=== PATIENT | male | born 1950 | race African-American/Black ===

== ENCOUNTER 2017-06-11 02:28 | Emergency (ER) | payer SELFPAY ==
[2017-06-11 02:47] LABS: BASOPHILS 0.3 % (0-2); EOSINOPHILS 2.4 % (0-7); HEMATOCRIT 43.7 % (42.0-54.0); HEMOGLOBIN 14.8 g/dL (13.5-17.5); IMMATURE GRANULOCYTES 0.4 % (0-5); LYMPHOCYTES 36.2 % (15-50); MCH 32.5 pg (26.0-34.0); MCHC 33.9 g/dL (31.0-37.0); MEAN PLATELET VOLUME 10.9 fL (7.4-10.4); MONOCYTES 7.3 % (2-11); NEUTROPHILS 53.4 % (40-80); PLATELET COUNT 196 10x3/uL (130-400); RBC 4.55 10x6/uL (4.20-6.10); RDW 12.8 % (11.5-14.5); WBC 11.5 10x3/uL (4.8-10.8)
[2017-06-11 02:59] LABS: APTT 28.8 SECONDS (22.8-39.4); INR 1.06 (0.85-1.17); PROTIME 13.4 SECONDS (11.6-15.0)
[2017-06-11 03:00] LABS: D-DIMER-QUANTITATIVE 0.33 ug/mLFEU (0.20-0.54)
[2017-06-11 03:02] LABS: ALBUMIN 3.3 g/dL (3.4-5.0); ALKALINE PHOSPHATASE 108 U/L (46-116); ALT (SGPT) 20 U/L (10-68); BILIRUBIN - TOTAL 0.29 mg/dL (0.2-1.3); CALC OSMOLALITY 279 mosm/kg (275-300); CALCIUM 8.9 mg/dL (8.5-10.1); CARBON DIOXIDE 27.9 mmol/L (21.0-32.0); CHLORIDE - SERUM 102 mmol/L (98-107); CREATININE - SERUM 1.5 mg/dL (0.6-1.3); GLUCOSE 142 mg/dL (74-106); POTASSIUM - SERUM 4.4 mmol/L (3.5-5.1); SODIUM 138 mmol/L (136-145); UREA NITROGEN 19 mg/dL (7-18); eGFR NON AFRICAN AMERICAN 50 mL/min (90-120)
[2017-06-11 03:13] LABS: CHOLESTEROL, TOTAL 110 mg/dL (0-200); CKMB 3.4 U/L (0.0-3.6); CREATINE KINASE 311 UL (21-232); HDL CHOLESTEROL 37 mg/dL (32-96); LDL CHOLESTEROL 35 mg/dL (0-100); LDL-HDL RATIO 0.9 ratio (1.5-3.5); TRIGLYCERIDE 191 mg/dL (30-200); TROPONIN-I < 0.017 ng/mL (0.000-0.060)
== END 2017-06-11 07:02 | disposition home or self-care (01) ==
LOC: EDBD 02:28 → D.ER 02:28
PROVIDERS: Family Medicine
DX: R07.9 Chest pain, unspecified (principal); I25.10 Atherosclerotic heart disease of native coronary artery without angina pectoris; K21.9 Gastro-esophageal reflux disease without esophagitis; I10 Essential (primary) hypertension; E11.9 Type 2 diabetes mellitus without complications; Z79.4 Long term (current) use of insulin; I44.0 Atrioventricular block, first degree; I45.10 Unspecified right bundle-branch block; F17.200 Nicotine dependence, unspecified, uncomplicated

== ENCOUNTER 2017-08-25 05:50 | Day surgery (SDC) | payer MEDICAID ==
[~2017-08-25] VITALS: Ht 172.7 cm; Wt 120.7 kg
--- NOTE | ~2017-08-25 | OP ---
PATIENT NAME: MIGUEL CLEMONS MEDICAL RECORD: [id number] :54 [facility] AD[facility] DATE: SURGEON: SHELDON AYALA MD DATE OF OPERATION: 08/25/2017 SURGEON: Sheldon Ayala MD ANESTHESIA: MAC by Dr. Lisandro Marlow. PREOPERATIVE DIAGNOSIS: Elevated PSA of 26.8. PROCEDURE: Transrectal ultrasound and prostate biopsy. FINDINGS: A 70-gram prostate with internal hypoechoic areas and prostatic stones. SPECIMENS: Prostate biopsy cores. ESTIMATED BLOOD LOSS: None. 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 He came back to [place], [place] to retire. He was found to have an elevated PSA of 26.8. He has no family history of prostate cancer. He comes today to have a prostate biopsy. He is not allergic to any medications. 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 DESCRIPTION OF PROCEDURE: The patient was given IV sedation. He was then placed into dorsal lithotomy position. The ultrasound probe was placed into the rectum and prostate size measurements were obtained. The prostate is enlarged and we estimated the size of 70 grams. Internal hypoechoic areas and prostatic stones were noted. Sextant biopsies were obtained with at least 3 cores from each sextant. Once all these specimens were obtained, the procedure was finished. The patient was awakened and brought back to the preoperative holding area. I will see him next week in followup to review the pathology with him. TRANSINT:[id number] Voice Confirmation ID: [id number] DOCUMENT ID: [id number] SHELDON AYALA MD at 0903 CC: [id number] DICTATION DATE: 08/25/17 0946 OUTCOMES SPECIALIST: 08/25/17 1235 [facility] 08/25/[address] [address]
[~2017-08-25 05:50] MED LIST: GLUCOPHAGE500 MG PO; LISINOPRIL5 MG PO; NORVASC10 MG PO; PRAVACHOL40 MG PO; TENORMIN50 MG PO
[2017-08-25 06:20] LABS: HEMATOCRIT 42.4 % (42.0-54.0); HEMOGLOBIN 14.5 g/dL (13.5-17.5); MCH 32.4 pg (26.0-34.0); MCHC 34.2 g/dL (31.0-37.0); MCV 94.6 fL (80.0-100.0); MEAN PLATELET VOLUME 10.6 fL (7.4-10.4); RBC 4.48 10x6/uL (4.20-6.10); RDW 13.1 % (11.5-14.5); WBC 12.3 10x3/uL (4.8-10.8)
[2017-08-25 06:59] LABS: ANION GAP 16.3 mmol/L (8-16); CALCIUM 9.4 mg/dL (8.5-10.1); CARBON DIOXIDE 22.1 mmol/L (21.0-32.0); CREATININE - SERUM 1.3 mg/dL (0.6-1.3); POTASSIUM - SERUM 4.4 mmol/L (3.5-5.1)
[2017-08-25 08:14] VITALS: BP 160/94; Ht 172.7 cm; Wt 120.7 kg
== END 2017-08-25 11:05 | disposition home or self-care (01) ==
LOC: D.OPS 05:50 → D.PAN 08:30 → EDBD 08:30 → D.OPS 11:05
PROVIDERS: Anesthesiology
DX: C61 Malignant neoplasm of prostate (principal); Z01.812 Encounter for preprocedural laboratory examination

== ENCOUNTER → 2017-09-09 09:37 | Outpatient (CLI) | payer MEDICAID ==
[2017-08-25 08:14] VITALS: BMI 40.5
[~2017-09-09 09:37] MED LIST changes: +ZOFRAN8 MG PO
== END | disposition home or self-care (01) ==
LOC: D.NM 09:37
DX: C61 Malignant neoplasm of prostate (principal)

== ENCOUNTER 2017-09-27 17:46 | Emergency (ER) | payer MEDICAID ==
[~2017-09-27] VITALS: Ht 172.7 cm; Wt 118.2 kg
[~2017-09-27 17:46] MED LIST changes: -ZOFRAN8 MG PO
[2017-09-27 18:14] VITALS: Ht 172.7 cm; Wt 118.2 kg
[2017-09-27 19:28] LABS: BASOPHILS 0.2 % (0-2); EOSINOPHILS 1.9 % (0-7); HEMATOCRIT 43.7 % (42.0-54.0); HEMOGLOBIN 15.3 g/dL (13.5-17.5); IMMATURE GRANULOCYTES 0.2 % (0-5); LYMPHOCYTES 33.3 % (15-50); MCH 32.5 pg (26.0-34.0); MCV 92.8 fL (80.0-100.0); MEAN PLATELET VOLUME 10.3 fL (7.4-10.4); MONOCYTES 9.6 % (2-11); NEUTROPHILS 54.8 % (40-80); PLATELET COUNT 215 10x3/uL (130-400); RBC 4.71 10x6/uL (4.20-6.10); RDW 12.3 % (11.5-14.5); WBC 9.6 10x3/uL (4.8-10.8)
[2017-09-27 20:04] LABS: ALBUMIN 3.5 g/dL (3.4-5.0); ALKALINE PHOSPHATASE 127 U/L (46-116); ALT (SGPT) 18 U/L (10-68); BILIRUBIN - TOTAL 0.31 mg/dL (0.2-1.3); CALC OSMOLALITY 275 mosm/kg (275-300); CALCIUM 9.3 mg/dL (8.5-10.1); CARBON DIOXIDE 26.4 mmol/L (21.0-32.0); CHLORIDE - SERUM 100 mmol/L (98-107); CREATININE - SERUM 1.4 mg/dL (0.6-1.3); GLUCOSE 186 mg/dL (74-106); POTASSIUM - SERUM 3.9 mmol/L (3.5-5.1); PROTEIN - SERUM 8.8 g/dL (6.4-8.2); SODIUM 135 mmol/L (136-145); UREA NITROGEN 14 mg/dL (7-18); eGFR NON AFRICAN AMERICAN 54 mL/min (90-120)
[2017-09-27 20:17] LABS: CKMB 3.7 U/L (0.0-3.6)
[2017-09-27 20:20] LABS: APPEARANCE CLEAR (CLEAR); BILIRUBIN NEGATIVE (NEGATIVE); COLOR YELLOW (YELLOW); GLUCOSE NEGATIVE (NEGATIVE); KETONE NEGATIVE (NEGATIVE); NITRITE NEGATIVE (NEGATIVE); PROTEIN TRACE mg/dL (NEGATIVE); SPECIFIC GRAVITY 1.015 (1.005-1.020); UROBILINOGEN NORMAL (NORMAL)
[2017-09-27 20:26] LABS: TROPONIN-I < 0.017 ng/mL (0.000-0.060)
[2017-09-27] MEDS ORDERED: ZOFRAN8 MG PO (22:54)
[2017-09-27 23:22] VITALS: BP 159/91
== END 2017-09-27 23:09 | disposition home or self-care (01) ==
LOC: D.ER 17:46
PROVIDERS: Family Medicine
DX: R10.9 Unspecified abdominal pain (principal); E11.9 Type 2 diabetes mellitus without complications; Z86.79 Personal history of other diseases of the circulatory system; I10 Essential (primary) hypertension; F17.200 Nicotine dependence, unspecified, uncomplicated

== ENCOUNTER → 2017-11-10 07:10 | Outpatient (CLI) | payer MEDICAID ==
[2017-09-27 18:14] VITALS: Wt 119.7 kg
[2017-11-09 10:09] LABS: APTT 28.2 SECONDS (22.8-39.4); INR 1.03 (0.85-1.17); PROTIME 13.1 SECONDS (11.6-15.0)
[2017-11-09 10:15] LABS: ANION GAP 11.2 mmol/L (8-16); CALCIUM 8.9 mg/dL (8.5-10.1); CARBON DIOXIDE 25.2 mmol/L (21.0-32.0); CREATININE - SERUM 1.7 mg/dL (0.6-1.3); POTASSIUM - SERUM 4.4 mmol/L (3.5-5.1)
[2017-11-09 10:37] LABS: BASOPHILS 0.4 % (0-2); EOSINOPHILS 2.6 % (0-7); HEMOGLOBIN 14.5 g/dL (13.5-17.5); IMMATURE GRANULOCYTES 0.5 % (0-5); LYMPHOCYTES 30.2 % (15-50); MCH 31.2 pg (26.0-34.0); MCHC 33.7 g/dL (31.0-37.0); MCV 92.5 fL (80.0-100.0); MEAN PLATELET VOLUME 11.4 fL (7.4-10.4); MONOCYTES 9.6 % (2-11); NEUTROPHILS 56.7 % (40-80); PLATELET COUNT 229 10x3/uL (130-400); RBC 4.65 10x6/uL (4.20-6.10); RDW 12.9 % (11.5-14.5); WBC 10.9 10x3/uL (4.8-10.8)
[~2017-11-10 07:10] MED LIST changes: +ZOFRAN8 MG PO
== END | disposition home or self-care (01) ==
LOC: D.OPS 07:10 → EDSTATUS 08:00 → D.OPS 11-22 16:44
PROVIDERS: Anesthesiology
DX: C61 Malignant neoplasm of prostate (principal); Z01.810 Encounter for preprocedural cardiovascular examination; Z01.811 Encounter for preprocedural respiratory examination; Z01.812 Encounter for preprocedural laboratory examination; Z53.9 Procedure and treatment not carried out, unspecified reason

== ENCOUNTER 2018-01-21 08:20 | Outpatient (CLI) | payer MEDICARE ==
[2018-01-20 12:01] LABS: BASOPHILS 0.3 % (0-2); EOSINOPHILS 2.4 % (0-7); HEMATOCRIT 42.9 % (42.0-54.0); HEMOGLOBIN 14.6 g/dL (13.5-17.5); IMMATURE GRANULOCYTES 0.2 % (0-5); LYMPHOCYTES 40.6 % (15-50); MCV 94.1 fL (80.0-100.0); MONOCYTES 8.8 % (2-11); NEUTROPHILS 47.7 % (40-80); PLATELET COUNT 211 10x3/uL (130-400); RBC 4.56 10x6/uL (4.20-6.10); RDW 13.2 % (11.5-14.5); WBC 9.7 10x3/uL (4.8-10.8)
[2018-01-20 12:13] LABS: INR 0.95 (0.85-1.17); PROTIME 12.3 SECONDS (11.6-15.0)
[2018-01-20 12:14] LABS: APTT 26.2 SECONDS (22.8-39.4)
[2018-01-20 12:17] LABS: ANION GAP 14.9 mmol/L (8-16); CALCIUM 9.1 mg/dL (8.5-10.1); CARBON DIOXIDE 24.2 mmol/L (21.0-32.0); CREATININE - SERUM 1.3 mg/dL (0.6-1.3); POTASSIUM - SERUM 4.1 mmol/L (3.5-5.1)
[~2018-01-21] VITALS: Ht 172.7 cm; Wt 109.1 kg
--- NOTE | ~2018-01-21 | HEMODYNAMI ---
PATIENT:MIGUEL CLEMONS MEDICAL RECORD: [id number] : 54 LOCATION:[facility] ADMISSION DATE: 01/21/18 Generatedon:01/21/201810:23 Patient name: MIGUEL CLEMONS Patient #: [id number] SSN: : Date of study: 01/21/2018 Page: Of Hemodynamic Procedure Report Patient Data Patient Demographics Procedure consent was obtained First Name: MIGUEL Gender: Male Last Name: KACI : 1950 Middle Initial: RAY Age: 67 year(s) Patient #: [id number] Race: Black Additional ID: [id number] Contact details Address: [address] [place] [address] State: [place] City: [facility] Zip code: [address] Past Medical History Allergies: No known allergies Admission Admission Data Admission Date: 01/21/2018 Admission Time: 8:20 Arrival Date: 01/21/2018 Arrival Time: 0:00 Admit Source: Other Insurance Payor: Medicare Room #: D.CL07 Lab Results Lab Result Date: 01/21/2018 Lab Result Time: 0:00 Biochemistry Name Units Result Min Max BUN mg/dl 12 --(-*--)-- 7 18 Creatinine mg/dl 1.3 --(---*)-- 0.6 1.3 CBC Name Units Result Min Max Hemoglobin g/dl 14.6 --(-*--)-- 13.5 17.5 Procedure Procedure Types Cath Procedure Diagnostic Procedure C [facility] w/Coronaries Sedation Charges Moderate Sedation up to 15 minutes PCI Procedure Coronary Stent Coronary Stent Initial Procedure Description Procedure Date Procedure Date: 01/21/2018 Procedure Start Time: 9:59 Procedure End Time: 10:22 Procedure Staff Name Function Mikal Florentino MD Performing Physician Candi Alcaraz RT Scrub Janelle Castrejon RN Nurse Es Woods RT Monitor Procedure Data Cath Procedure Fluoroscopy Diagnostic fluoroscopy Total fluoroscopy Time: 6.9 time: 6.9 min min Diagnostic fluoroscopy Total fluoroscopy dose: dose: 1556 mGy 1556 mGy Contrast Material Contrast Material Type Amount (ml) Isovue 300 119 Entry Location Entry Primary Successful Side Size Upsize Upsize Entry Closure Colmenares ccessful Closure Location (Fr) 1 (Fr) 2 (Fr) Remarks Device Remarks Radial Right 6 Fr Mechanical artery Short Compression Estimated blood loss: 10 ml Diagnostic catheters Device Type Used For End Catheter Placement DIAGNOSTIC Gary 110cm 5 LV Angiography Fr catheter ([id number]) DIAGNOSTIC Gary 110cm 5 Right Coronary Fr catheter ([id number]) Angiography DIAGNOSTIC Gary 110cm 5 Left Coronary Fr catheter ([id number]) Angiography Procedure Complications No complications Procedure Medications Medication Administration Route Dosage Oxygen etCO2 Nasal cannula 2 l/min Lidocaine 2% added to field 20 Heparin Flush Bag added to field 2 bags (1000units/500ml NS) 0.9% NaCl I.V. 100 ml/hr Versed I.V. 2 mg Fentanyl I.V. 100 mcg Radial Cocktail I.A. 1 syringe (Verapomil 2mg/Nitro 400mcg/Heparin 1500units) Versed I.V. 0.5 mg Fentanyl I.V. 25 mcg Heparin Bolus I.V. 4000 units Integrilin (Bolus I.V. 9.5 ml 2mg/ml) Plavix P.O. 600 mg Hemodynamics Rest HGB: 14.6 (g/dl) Heart Rate: 74 (bpm) Snapshots Pre Cath Intra NCS Post Cath Vital Signs Time Heart Resp SPO2 etCO2 NIBP (mmHg) Rhythm Pain Sedation Rate (ipm) (%) (mmHg) Status Level (bpm) 9:39:29 68 18 100 33.3 146/106(124) NSR 0 (11) 10(A) , No pain 9:43:41 68 24 99 32.5 140/97(112) NSR 0 (11) 10(A) , No pain 9:47:55 73 25 98 34.8 135/83(105) NSR 0 (11) 10(A) , No pain 9:52:06 72 23 99 27.2 134/80(108) NSR 0 (11) 10(A) , No pain 9:56:57 69 18 96 20.4 136/81(104) NSR 0 (11) 10(A) , No pain 10:01:11 69 20 99 24.9 133/79(106) NSR 0 (11) 9(A) , No pain 10:05:28 71 20 95 0 124/70(102) NSR 0 (11) 9(A) , No pain 10:09:37 67 20 97 0 121/76(99) NSR 0 (11) 9(A) , No pain 10:13:45 69 21 97 35.5 125/78(100) NSR 0 (11) 9(A) , No pain 10:17:53 70 21 97 30.2 130/83(99) NSR 0 (11) 10(A) , No pain 10:22:03 72 17 99 28.7 148/88(98) NSR 0 (11) 10(A) , No pain Medications Time Medication Route Dose Verified Delivered Reason Not es Effectiveness by by 9:47:23 Oxygen etCO2 2 l/min Mikal Luis used for Nasal Mishel Castrejon RN procedure cannula 9:47:29 Lidocaine 2% added 20ml Mikal Ren for local to vial Mishel Florentino MD anesthetic field 9:47:35 Heparin Flush added 2 bags Mikal Ren used for Bag to Mishel Florentino MD procedure (1000units/500ml field NS) 9:47:47 0.9% NaCl I.V. 100 Mikal Luis Per physician ml/hr Mishel Castrejon RN 9:54:44 Versed I.V. 2 mg Mikal Luis for sedation Mishel Castrejon RN 9:54:50 Fentanyl I.V. 100 mcg Mikal Luis for sedation Mishel Castrejon RN 10:03:01 Radial Cocktail I.A. 1 Mikal Ren for (Verapomil syringe Mishel Florentino MD vasodilation 2mg/Nitro 400mcg/Heparin 1500units) 10:03:06 Versed I.V. 0.5 mg Mikal Ren for sedation Mishel Florentino MD 10:03:11 Fentanyl I.V. 25 mcg Mkial Ren for sedation Mishel Florentino MD 10:08:02 Heparin Bolus I.V. 4000 Mikal Luis for olaf ified units Mishel Castrejon RN anticoagulation with dr florentino 10:09:14 Integrilin I.V. 9.5 ml Mikal Luis for Was shadi (Bolus 2mg/ml) Mishel Castrejon RN antiplatelet 0.5ml of therapy vial 10:20:38 Plavix P.O. 600 mg Mikal Luis for Mishel Castrejon RN antiplatelet therapy Procedure Log Time Note 9:22:19 Candi Kieran RT(R) sent for patient. Start room use. 9:22:20 Time tracking: Regular hours (M-F 7:00 - 5:00) 9:22:25 Plan of Care:Hemodynamics will remain stable., Cardiac rhythm will remain stable., Comfort level will be maintained., Respiratory function will remain adequate., Patient/ family verbilizes understanding of procedure., Procedure tolerated without complication., Recovers from procedure without complications.. 9:25:30 Admit Source: Other 9:25:52 Arrival Date: 01/21/2018 12:00:00 AM 9:26:04 Insurance Payor : Medicare 9:27:21 Lab Result : BUN 12 mg/dl 9:27:21 Lab Result : Hemoglobin 14.6 g/dl 9:27:21 Lab Result : Creatinine 1.3 mg/dl 9:29:09 Patient received from Pre/Post Procedure Room to CCL 2 Alert and oriented. Tansferred to table in Supine position. 9:29:11 Warm blankets applied, and halie hugger turned on for patient comfort. 9:29:11 Correct patient and procedure confirmed by team. 9:29:13 Signed procedure consent form obtained from patient. 9:29:14 ECG and BP/O2 sat monitors applied to patient. 9:37:31 Vital chart was started 9:39:51 Full Disclosure recording started 9:40:01 Rhythm: 1st degree heart block 9:42:36 H&P Date Dictated: 01/20/2018 Within 30 days and on chart., H&P Addendum completed by physician on day of procedure. (MUST COMPLETE FOR ALL OUTPATIENTS). 9:42:38 Pre-procedure instructions explained to patient. 9:42:38 Pre-op teaching completed and patient verbalized understanding. 9:42:40 Family in patients room. 9:42:42 Patient NPO since Midnight. 9:43:38 Patient allergic to No known allergies 9:43:40 Is the patient allergic to Iodine/contrast media? No. 9:44:22 Is patient on blood thinner?No 9:44:23 Patient diabetic? Yes. 9:44:24 If diabetic: On Metformin? Yes 9:44:27 If on Metformin: Last Dose? 01/20/2018 9:44:30 Previous problem with sedation/anesthesia? No ? 9:44:31 Snore? Yes 9:44:32 Sleep apnea? Yes 9:44:34 Deviated septum? No 9:44:35 Opens mouth fully? Yes 9:44:36 Sticks out tongue? Yes 9:44:37 Airway obstruction? No ? 9:44:39 Dentures? No ? 9:44:42 Pre procedure: right dorsailis pedis pulse 2+ Normal; easily identifiable; not easily obliterated 9:44:44 Modified Duncan's test Ulnar < 7 seconds 9:44:46 Patient pain scale 0/10 ?. 9:44:50 IV patent on arrival in right forearm with 0.9% NaCl at O. 9:44:52 Lab results completed and on chart. 9:44:56 Right Radial & Right Groin area was prepped with chlora-prep and draped in sterile fashion 9:44:57 Alarms reviewed by R. N. 9:44:58 Sharps counted by scrub and verified by R.N. 9:45:00 Use device set Radial Dx or PCI 9:45:01 ACIST Syringe (14450) opened to sterile field. 9:45:02 Medline Cath Pack ([id number]) opened to sterile field. 9:45:02 Bag Decanter (2002S) opened to sterile field. 9:45:02 DIAGNOSTIC WIRE .035 260cm J wire (953835) opened to sterile field. 9:45:03 ACIST Hand Control (72761) opened to sterile field. 9:45:03 ACIST Manifold (63119) opened to sterile field. 9:45:04 Tegaderm 4 x 4 (1626W) opened to sterile field. 9:45:04 MBrace Wrist Support ([id number]) opened to sterile field. 9:45:15 SHEATH 6FR Slender ([id number]) opened to sterile field. 9:47:23 Oxygen 2 l/min etCO2 Nasal cannula was administered by Janelle Castrejon RN; used for procedure; 9:47:29 Lidocaine 2% 20ml vial added to field was administered by Mikal Florentino MD; for local anesthetic; 9:47:35 Heparin Flush Bag (1000units/500ml NS) 2 bags added to field was administered by Mikal Florentino MD; used for procedure; 9:47:47 0.9% NaCl 100 ml/hr I.V. was administered by Janelle Castrejon RN; Per physician; 9:48:11 Zero performed for pressure channel P1 9:48:15 Baseline sample Acquired. 9:52:14 Final Timeout: patient, procedure, and site verified with staff and physician. All members of the team are in agreement. 9:52:18 Right Radial site verified by team. 9:52:22 Physical assessment completed. ASA score P 2 - A patient with mild systemic disease as per Mikal Florentino MD. 9:52:27 Sedation plan: IV Moderate Sedation Medication:Versed, Fentanyl 9:54:44 Versed 2 mg I.V. was administered by Janelle Castrejon RN; for sedation; 9:54:50 Fentanyl 100 mcg I.V. was administered by Janelle Castrejon RN; for sedation; 9:59:34 Procedure started. 9:59:38 Local anesthetic to right radial artery with Lidocaine 2% by Mikal Florentino MD.INITIAL ACCESS ONLY 10:01:26 A 6 Fr Short sheath was inserted into the Right Radial artery 10:01:49 A DIAGNOSTIC Gary 110cm 5 Fr catheter (557287) was advanced over the wire and used for LV Angiography. 10:02:50 LV gram done using TRIPP 10:02:55 Injector settings: Ml/sec: 5, Volume: 15, 10:03:01 Radial Cocktail (Verapomil 2mg/Nitro 400mcg/Heparin 1500units) 1 syringe I.A. was administered by Mikal Florentino MD; for vasodilation; 10:03:05 EF : 30 % 10:03:06 Versed 0.5 mg I.V. was administered by Mikal Florentino MD; for sedation; 10:03:11 Fentanyl 25 mcg I.V. was administered by Mikal Florentino MD; for sedation; 10:03:28 A DIAGNOSTIC Gary 110cm 5 Fr catheter (618417) was advanced over the wire and used for Right Coronary Angiography. 10:03:57 A DIAGNOSTIC Gary 110cm 5 Fr catheter (213381) was advanced over the wire and used for Left Coronary Angiography.REMOVED UNABLE TO CANNULATE 10:04:38 GUIDE 6FR XBLAD 3.5 catheter ([id number]) opened to sterile field. 10:05:10 6 Fr XBLAD 3.5 guide catheter was inserted over the wire 10:05:15 Use device set MISHEL PCI 10:05:29 INFLATOR Merit Cookie (PU6592) opened to sterile field. 10:05:31 CHOICE PT Extra Support J 300cm guide wire ([id number]) opened to sterile field. 10:07:00 GUIDE 6FR XBC 3 (07126369) opened to sterile field. 10:07:47 LCA angiography performed. 10:08:02 Heparin Bolus 4000 units I.V. was administered by Janelle Castrejon RN; for anticoagulation; verified with dr florentino 10:09:14 Integrilin (Bolus 2mg/ml) 9.5 ml I.V. was administered by Janelle Castrejon RN; for antiplatelet therapy; Wasted 0.5ml of vial 10:09:28 CHOICE PT ES wire advanced. 10:12:47 Place stent Inflation Number: 1 A INTEGRITY RX 2.5 x 26 stent ([id number]) was prepped and advanced across the Mid CX. The stent was deployed at 13 BARBRA for 0:12 (min:sec). 10:13:01 Stent catheter was removed intact over wire. 10:14:24 Inflate balloon Inflation number: 2 A INTEGRITY RX 2.5 x 18 stent ([id number]) was prepped and advanced across the Mid CX, then inflated to 13 BARBRA for 0:04 (min:sec). 10:14:59 Stent catheter was removed intact over wire. 10:16:43 Place stent Inflation Number: 3 A INTEGRITY RX 2.5 x 14 stent ([id number]) was prepped and advanced across the Mid CX. The stent was deployed at 17 BARBRA for 0:05 (min:sec). 10:17:01 Stent catheter was removed intact over wire. 10:17:02 Wire removed. 10:17:02 Guide catheter removed. 10:17:09 Sheath removed intact; hemostasis achieved with Mechanical Compression to the Right Radial artery. 10:17:34 Procedure ended.(Physican Out) 10:17:53 Fluoroscopy time 06.90 minutes. 10:17:57 Flurop Dose total: 1556 10:17:57 Fluoroscopy dose: 1556 mGy 10:18:02 Contrast amount:Isovue 300 119ml. 10:18:03 Sharps counted by scrub and verified by R.N. 10:18:07 TR band inflated with 10cc of air. 10:18:08 Insertion/operative site no bleeding no hematoma. 10:18:15 Post right radial artery:stable, clean and dry 10:18:16 Post Procedure Pulses reassessed and unchanged 10:18:19 Post-procedure physical assessment completed. ASA score P 2 - A patient with mild systemic disease as per Mikal Florentino MD. 10:18:21 Post procedure rhythm: unchanged. 10:18:35 Estimated blood loss: 10 ml 10:18:36 Post procedure instruction explained to patient.Patient verbalizes understanding. 10:18:37 Patient needs reinforcement of post procedure teaching. 10:18:45 Procedure type changed to Cath procedure, Diagnostic procedure, LHC, LHC w/Coronaries, Sedation Charges, Moderate Sedation up to 15 minutes, PCI procedure, Coronary Stent, Coronary Stent Initial 10:19:04 Procedure Complication : No complications 10:19:06 See physician's report for complete and final results. 10:19:39 TR BAND Large ([id number]) opened to sterile field. 10:20:20 Procedure and supply charges have been captured, reviewed, submitted and are correct. 10:20:38 Plavix 600 mg P.O. was administered by Janelle Castrejon RN; for antiplatelet therapy; 10:22:19 Vital chart was stopped 10:22:20 Report given to Pre/Post Procedure Room. 10:22:28 Patient transfered to Pre/Post Procedure Room with Stretcher. 10::31 Procedure ended. 10::31 Full Disclosure recording stopped 10::34 End room use (Document Last) 10::34 End room use (Document Last) Intervention Summary Intervention Notes Time ActionType Lesion and Equipment Action# Pressure Duration Attributes Used 10:12:47 Place stent Mid CX INTEGRITY RX 1 13 00:12 2.5 x 26 stent ([id number]) 10:14:24 Inflate Mid CX INTEGRITY RX 2 13 00:05 balloon 2.5 x 18 stent ([id number]) 10:16:43 Place stent Mid CX INTEGRITY RX 3 17 00:05 2.5 x 14 stent ([id number]) Device Usage Item Name Manufacture Quantity Catalog Number Hospital Part Current Mini mal Lot# / Charge Number Stock Stock Serial# Code ACIST Acist 1 58641 181117 590818 610860 20 Syringe Medical (12084) Systems Inc Medline Cath Medline 1 [id number] 492818 41359 284562 5 Pack ([id number]) Bag Decanter Microtek 1 2001S 564623 94739 844892 5 (2001S) Medical Inc. DIAGNOSTIC [facility] [place] 1 094166 659646 956976 754531 30 WIRE .035 260cm J wire (247767) ACIST Hand Acist 1 67696 221678 904910 087377 5 Control Medical (66180) Systems Inc ACIST Acist 1 37396 318639 790934 461844 5 Manifold Medical (22656) Systems Inc Tegaderm 4 x 3M 1 1626W 806118 455596 179566 5 4 (1626W) MBrace Wrist Advanced 1 140-0250-00 161457 57563 113472 5 Support Vascular (972450659) Dynamics SHEATH 6FR Terumo 1 [id number] 556078 886612 256572 40 Slender ([id number]) DIAGNOSTIC Terumo 1 40-3773 908590 428856 067828 5 Gary 110cm 5 Fr catheter (738105) GUIDE 6FR Cardinal 1 [id number] 476552 616028 090677 10 XBLAD 3.5 Health catheter (60517135) INFLATOR [facility] 1 YC2893 940015 840320 860010 15 [facility] BasixCompak (KY6020) CHOICE PT [place] 1 [id number] 325977 997656 076279 5 Extra Scientific Support J 300cm guide wire ([id number]) GUIDE 6FR Cardinal 1 09155703 426799 46746 431496 5 XBC 3 Health (45069040) INTEGRITY RX Medtronic 1 [id number] 333395 764235 808110 5 [id number] 2.5 x 26 stent ([id number]) INTEGRITY RX Medtronic 1 [id number] 210884 360710 376558 5 [id number] 2.5 x 18 stent ([id number]) INTEGRITY RX Medtronic 1 [id number] 638714 781668 877270 5 [id number] 2.5 x 14 stent ([id number]) TR BAND Terumo 1 [id number] 100649 407932 469643 40 Large ([id number]) Signature Audit [place] Stage Time Signature Unsigned Intra-Procedure 01/21/2018 Es 10:22:52 AM Counts RT(R) Signatures Monitor : Es Signature : Counts RT Date : Time : [address] [place] [address]
--- NOTE | ~2018-01-21 | CN ---
PATIENT NAME:MIGUEL MADDEN MEDICAL RECORD: [id number] : 54 LOCATION:[facility]07 ADMIT DATE: 01/21/18 ACCOUNT: [id number] CONSULTING PHYSICIAN: LELIA CARDENAS MD REFERRING PHYSICIAN: LELIA CARDENAS MD DATE OF CONSULTATION: 01/20/2018 CARDIOLOGY CONSULTATION DATE OF SERVICE: 01/20/2018 DIAGNOSES: 1. Preoperative evaluation of prostatectomy. 2. Angina. 3. Dyspnea on exertion - shortness of breath. 4. Coronary artery disease. 5. Previous cardiac stenting. 6. Hypertension. 7. Abnormal ECG. 8. Dysrhythmia - premature ventricular contractions. HISTORY OF PRESENT ILLNESS: Mr. Madden is here to be evaluated for possible prostatectomy. He has history of cardiac stents 15 to 20 years ago. He has been having shortness of breath, dyspnea on exertion and some chest pressure compatible with angina. His EKG is significantly abnormal suggestive of resting ischemia as well having multifocal PVCs. REVIEW OF SYSTEMS: The patient reports easy bruising but reports no swollen glands. The patient reports no fever, no night sweats, no significant weight gain, no significant weight loss. No significant exercise tolerance. The patient reports no dry eyes, no irritation, no vision change. Patient reports no difficulty hearing and no ear pain. Patient reports no frequent nose bleeds or nose and sinus problems. Patient reports on arm pain on exertion. No shortness of breath while lying down. No history of heart murmur. Patient reports no cough, no wheezing or coughing up blood. Patient reports no abdominal pain, no vomiting. Normal appetite. No diarrhea and not vomiting blood. No nausea and no constipation. Patient reports no incontinence. No difficulty urinating. No hematuria. No increased frequency. Patient reports no muscle aches. No weakness, no arthralgias, no back pain. No swelling of the extremities. Patient reports no abnormal mole, no jaundice, no rashes. Reports no loss of consciousness. No weakness and no numbness. No seizures, dizziness, or headaches. The patient reports no depression, no sleep disturbance, feeling safe in a relationship and no alcohol abuse. Patient reports on fatigue. Reports no runny nose or sinus pressure. No itching, no hives, and no frequent sneezing. PHYSICAL EXAMINATION: GENERAL APPEARANCE: Well-nourished, well-developed, appears stated age. Level of distress, comfortable. PSYCHIATRIC: Mental status, alert, normal affect. Orientation, oriented to time, place and person. EYES: Lids and conjunctiva, noninjected. No discharge, no pallor. ENT: Lips, teeth, gums, normal dentition. Oropharynx, no cyanosis, no pallor. NECK: Carotid arteries, bilateral normal upstroke, no bruits, no thrills. JUGULAR VEINS: No jugular venous pressure or distention. CONSULT REPORT [id number] BRIM,MIGUEL RAY CERVICAL LYMPH NODES: Nontender, nonenlarged. THYROID: Not enlarged. Nontender. No nodules. LUNGS: Respiratory effort, unlabored. CHEST: Normal curvature. No thoracic deformity. No chest wall tenderness. Percussion, resonant. Auscultation, clear. No wheezes, no rales, no rhonchi. CARDIOVASCULAR: Precordial exam, nondisplaced. No heaves or pericardial thrills. Rate and rhythm, regular. Heart sounds, normal S1, normal S2. No S3, no gallop, no rub. Systolic murmur, not heard. Diastolic murmur, not heard. EXTREMITIES: No cyanosis, no edema. Peripheral pulses, full and equal in all extremities, except as noted. No bruits appreciated. ABDOMEN: Soft, nondistended. Normal aorta. No bruit. Nontender. No masses. Liver, nontender, no hepatomegaly. Spleen, nontender, no splenomegaly. MUSCULOSKELETAL: No joint tenderness. No joint swelling. No erythema. NEUROLOGICAL: Normal gait, normal strength, normal tone. SKIN: Warm and dry. OVERALL IMPRESSION: Angina, shortness of breath, distant history of coronary artery disease, abnormal ECG. We will proceed with coronary angiography. Further care depends upon the findings of the angiography. TRANSINT:[id number] Voice Confirmation ID: [id number] DOCUMENT ID: [id number] LELIA CARDENAS MD at 1059 CC: [id number] DICTATION DATE: 01/20/18 1229 KNIT GOODS MENDER: 01/20/18 1310 ADM IN [address] [address] [place] [address]
[2018-01-21 08:44] VITALS: BP 154/91; BMI 36.5
[2018-01-21 09:17] LABS: BASOPHILS 0.2 % (0-2); EOSINOPHILS 2.4 % (0-7); HEMATOCRIT 42.8 % (42.0-54.0); HEMOGLOBIN 14.6 g/dL (13.5-17.5); IMMATURE GRANULOCYTES 0.3 % (0-5); LYMPHOCYTES 35.2 % (15-50); MCH 32.3 pg (26.0-34.0); MCHC 34.1 g/dL (31.0-37.0); MCV 94.7 fL (80.0-100.0); MEAN PLATELET VOLUME 10.5 fL (7.4-10.4); NEUTROPHILS 52.9 % (40-80); PLATELET COUNT 202 10x3/uL (130-400); RBC 4.52 10x6/uL (4.20-6.10); RDW 13.2 % (11.5-14.5); WBC 9.5 10x3/uL (4.8-10.8)
[2018-01-21 09:34] LABS: ANION GAP 15.7 mmol/L (8-16); CALCIUM 9.4 mg/dL (8.5-10.1); CARBON DIOXIDE 24.6 mmol/L (21.0-32.0); CREATININE - SERUM 1.4 mg/dL (0.6-1.3); POTASSIUM - SERUM 4.3 mmol/L (3.5-5.1)
[2018-01-21] MEDS ORDERED: PLAVIX75 MG PO (10:55)
[2018-01-21] MEDS ORDERED: BAYER CHEWABLE81 MG PO (10:57)
== END 2018-01-21 14:50 | disposition home or self-care (01) ==
LOC: OBSVTIME → D.OPS 08:20 → D.SDCHOLD 08:20 → OBSVTIME 08:20 → D.CLR 08:20 → D.SDCHOLD 08:30 → EDSTATUS 08:45 → D.SDCHOLD 08:45 → D.OPS 14:50 → D.CLR 14:50 → EDBD 14:50 → D.CLR 14:50
PROVIDERS: Anesthesiology; Internal Medicine Interventional Cardiology
DX: I25.119 Atherosclerotic heart disease of native coronary artery with unspecified angina pectoris (principal); I49.3 Ventricular premature depolarization; R94.31 Abnormal electrocardiogram [ECG] [EKG]; I10 Essential (primary) hypertension

== ENCOUNTER → 2018-01-24 15:24 | Outpatient (CLI) | payer MEDICARE ==
[~2018-01-24] VITALS: Ht 172.7 cm; Wt 110.9 kg
--- NOTE | ~2018-01-24 | OP ---
PATIENT NAME: MIGUEL CLEMONS MEDICAL RECORD: [id number] :54 LOCATION:D.CAT ADMISSION DATE: SURGEON: LELIA CARDENAS MD DATE OF OPERATION: 01/24/2018 PROCEDURES: 1. PTCA stent RCA. 2. Selective coronary angiography. INDICATION: Angina and coronary artery disease. PROCEDURE IN DETAIL: After informed consent was obtained and after a detailed description of risks, benefits as well as alternative therapies, the patient elected to proceed with angiogram and angioplasty. The right radial area was prepped and draped in normal sterile fashion. Right radial artery was cannulated via modified Seldinger technique with placement of 6-Turkish sheath. All catheters exchanged through this sheath. FINDINGS: The right coronary artery has tandem 75% to 80% stenoses in the mid vessel. Both were addressed with a 2.75 x 26 mm Integrity. Result was 0% residual stenosis. OVERALL IMPRESSION: Successful percutaneous transluminal coronary angioplasty stent of the RCA going from 75% to 80% initial stenosis to 0% residual. TRANSINT:[id number] Voice Confirmation ID: [id number] DOCUMENT ID: [id number] LELIA CARDENAS MD at 1031 CC: [id number] DICTATION DATE: 01/24/18 1103 DISEASE CONTROL INSPECTOR: 01/24/18 1111 [facility] CLI 01/24/[address] [address]
--- NOTE | ~2018-01-24 | HP ---
PATIENT: MIGUEL MADDEN MEDICAL RECORD: [id number] ACCOUNT: [id number] LOCATION:[facility] : 54 ADMISSION DATE: 01/24/18 PCP: BILLY GREEN MD HISTORY AND PHYSICAL EXAMINATION DIAGNOSES: 1. Angina. 2. Coronary artery disease. 3. Abnormal ECG. 4. Shortness breath, dyspnea on exertion. 5. Preoperative evaluation of radical prostatectomy. 6. PVCs. HISTORY OF PRESENT ILLNESS: Mr. Madden presented last week with shortness of breath, dyspnea on exertion, found to have multivessel coronary artery disease, underwent PTCA stent of the left, and now brought back for PTCA stent of the right. PHYSICAL EXAMINATION: GENERAL APPEARANCE: Well-nourished, well-developed, appears stated age. Level of distress, comfortable. PSYCHIATRIC: Mental status, alert, normal affect. Orientation, oriented to time, place and person. EYES: Lids and conjunctiva, noninjected. No discharge, no pallor. ENT: Lips, teeth, gums, normal dentition. Oropharynx, no cyanosis, no pallor. NECK: Carotid arteries, bilateral normal upstroke, no bruits, no thrills. JUGULAR VEINS: No jugular venous pressure or distention. CERVICAL LYMPH NODES: Nontender, nonenlarged. THYROID: Not enlarged. Nontender. No nodules. LUNGS: Respiratory effort, unlabored. CHEST: Normal curvature. No thoracic deformity. No chest wall tenderness. Percussion, resonant. Auscultation, clear. No wheezes, no rales, no rhonchi. CARDIOVASCULAR: Precordial exam, nondisplaced. No heaves or pericardial thrills. Rate and rhythm, regular. Heart sounds, normal S1, normal S2. No S3, no gallop, no rub. Systolic murmur, not heard. Diastolic murmur, not heard. EXTREMITIES: No cyanosis, no edema. Peripheral pulses, full and equal in all extremities, except as noted. No bruits appreciated. ABDOMEN: Soft, nondistended. Normal aorta. No bruit. Nontender. No masses. Liver, nontender, no hepatomegaly. Spleen, nontender, no splenomegaly. MUSCULOSKELETAL: No joint tenderness. No joint swelling. No erythema. NEUROLOGICAL: Normal gait, normal strength, normal tone. SKIN: Warm and dry. OVERALL IMPRESSION: Anginal symptomatology with significant disease on the right. We will proceed with PTCA stent of the RCA. TRANSINT:[id number] Voice Confirmation ID: [id number] DOCUMENT ID: [id number] HISTORY AND PHYSICAL [id number] MIGUEL MADDEN JEFFREY MD at 1031 CC: [id number] DICTATION DATE: 01/24/18 1527 COPY MANAGER: 01/24/18 1701 DEP CLI 01/24/18 [id number] [place] [address]
--- NOTE | ~2018-01-24 | HEMODYNAMI ---
PATIENT:MIGUEL CLEMONS MEDICAL RECORD: [id number] : 54 LOCATION:[facility] ADMISSION DATE: 01/24/18 Generatedon:01/24/201811:02 Patient name: MIGUEL CLEMONS Patient #: [id number] SSN: : Date of study: 01/24/2018 Page: Of Hemodynamic Procedure Report Patient Data Patient Demographics Procedure consent was obtained First Name: MIGUEL Gender: Male Last Name: KACI : 1950 Middle Initial: RAY Age: 67 year(s) Patient #: [id number] Race: Black Additional ID: [id number] Contact details Address: [address] [place] [address] State: [place] City: [facility] Zip code: [address] Past Medical History Allergies: No known allergies Admission Admission Data Admission Date: 01/24/2018 Admission Time: 10:30 Lab Results Lab Result Date: 01/21/2018 Lab Result Time: 0:00 Biochemistry Name Units Result Min Max BUN mg/dl 12 --(-*--)-- 7 18 Creatinine mg/dl 1.3 --(---*)-- 0.6 1.3 CBC Name Units Result Min Max Hemoglobin g/dl 14.6 --(-*--)-- 13.5 17.5 Procedure Procedure Types Cath Procedure PCI Procedure Coronary Stent Coronary Stent Initial Procedure Description Procedure Date Procedure Date: 01/24/2018 Procedure Start Time: 10:49 Procedure End Time: 11:02 Procedure Staff Name Function Mikal Florentino MD Performing Physician Felix Calvo RT Monitor Carolina Tijerina RN Nurse Es Woods RT Scrub Procedure Data Cath Procedure Fluoroscopy Diagnostic fluoroscopy Total fluoroscopy Time: 2 time: 2 min min Diagnostic fluoroscopy Total fluoroscopy dose: 169 dose: 169 mGy mGy Contrast Material Contrast Material Type Amount (ml) Isovue 300 55 Entry Location Entry Primary Successful Side Size Upsize Upsize Entry Closure Colmenares ccessful Closure Location (Fr) 1 (Fr) 2 (Fr) Remarks Device Remarks Radial Right 6 Fr Mechanical artery Short Compression Estimated blood loss: 10 ml Procedure Complications No complications Procedure Medications Medication Administration Route Dosage 0.9% NaCl I.V. 100 ml/hr Oxygen etCO2 Nasal cannula 2 l/min Lidocaine 2% added to field 20 Heparin Flush Bag added to field 2 bags (1000units/500ml NS) Radial Cocktail added to field 1 syringe (Verapomil 2mg/Nitro 400mcg/Heparin 1500units) Versed I.V. 2 mg Fentanyl I.V. 50 mcg Versed I.V. 2 mg Fentanyl I.V. 25 mcg Heparin Bolus I.V. 4000 units Versed I.V. 1 mg Fentanyl I.V. 25 mcg Hemodynamics Rest HGB: 14.6 (g/dl) Heart Rate: 61 (bpm) Snapshots Pre Cath Intra NCS Post Cath Vital Signs Time Heart Resp SPO2 etCO2 NIBP (mmHg) Rhythm Pain Sedation Rate (ipm) (%) (mmHg) Status Level (bpm) 10:34:34 71 31 99 33.1 141/90(119) NSR 0 (11) 10(A) , No pain 10:38:56 72 21 100 27.1 127/84(106) NSR 0 (11) 10(A) , No pain 10:43:18 65 21 100 33.9 126/88(107) NSR 0 (11) 10(A) , No pain 10:47:40 61 22 98 25.6 122/80(101) NSR 0 (11) 10(A) , No pain 10:52:02 67 22 97 26.3 125/83(103) NSR 0 (11) 10(A) , No pain 10:56:24 64 21 97 26 111/77(97) NSR 0 (11) 10(A) , No pain 11:00:43 60 21 98 27.4 112/73(94) NSR 0 (11) 10(A) , No pain Medications Time Medication Route Dose Verified Delivered Reason Not es Effectiveness by by 10:33:25 0.9% NaCl I.V. 100 Mikal Salazaryla used for ml/hr Mishel Tijerina hand i blocker 10:33:33 Oxygen etCO2 2 l/min Mikal Lopesa used for Nasal Mishel Tijerina procedure cannula RN 10:33:39 Lidocaine 2% added 20ml Mikal Mikal for local to vial Mishel Florentino MD anesthetic field 10:33:43 Heparin Flush added 2 bags Mikal Norrisrey used for Bag to Mishel Florentino MD procedure (1000units/500ml field NS) 10:39:53 Radial Cocktail added 1 Mikalvelma Ren used for (Verapomil to syringe Mishel Florentino MD procedure 2mg/Nitro field 400mcg/Heparin 1500units) 10:43:08 Versed I.V. 2 mg Mikal Carolina for sedation Mishel Tijerina RN 10:43:17 Fentanyl I.V. 50 mcg Mikal Carolina for sedation Mishel Tijerina RN 10:50:54 Versed I.V. 2 mg Mikal Carolina for sedation Mishel Tijerina RN 10:50:59 Fentanyl I.V. 25 mcg Mikal Carolina for sedation Mishel Tjierina RN 10:53:55 Heparin Bolus I.V. 4000 Mikal Carolina for olaf ified units Mishel Tijerina anticoagulation with Dr. GABBY Florentino 10:55:35 Versed I.V. 1 mg Mikal Carolina for sedation Mishel Tijerina RN 10:55:45 Fentanyl I.V. 25 mcg Mikal Carolina for sedation Mishel Tijerina RN Procedure Log Time Note 10:20:30 Felix ROBERTO(R) sent for patient. Start room use. 10:20:31 Time tracking: Regular hours (M-F 7:00 - 5:00) 10:20:34 Plan of Care:Hemodynamics will remain stable., Cardiac rhythm will remain stable., Comfort level will be maintained., Respiratory function will remain adequate., Patient/ family verbilizes understanding of procedure., Procedure tolerated without complication., Recovers from procedure without complications.. 10:27:09 Patient received from Pre/Post Procedure Room to CCL 3 Alert and oriented. Tansferred to table in Supine position. 10:27:10 Warm blankets applied, and halie hugger turned on for patient comfort. 10:27:11 Correct patient and procedure confirmed by team. 10:27:12 Signed procedure consent form obtained from patient. 10:27:13 ECG and BP/O2 sat monitors applied to patient. 10:27:14 Full Disclosure recording started 10:33:11 Vital chart was started 10:33:25 0.9% NaCl 100 ml/hr I.V. was administered by Carolina Tijerina RN; used for procedure; 10:33:33 Oxygen 2 l/min etCO2 Nasal cannula was administered by Carolina Tijerina RN; used for procedure; 10:33:39 Lidocaine 2% 20ml vial added to field was administered by Mikal Florentino MD; for local anesthetic; 10:33:43 Heparin Flush Bag (1000units/500ml NS) 2 bags added to field was administered by Mikal Florentino MD; used for procedure; 10:35:41 Baseline sample Acquired. 10:35:53 Rhythm: sinus rhythm 10:36:27 H&P Date Dictated: 01/24/2018 New H&P dictated by physician.. 10:36:28 Pre-procedure instructions explained to patient. 10:36:28 Pre-op teaching completed and patient verbalized understanding. 10:36:30 Family unavailable. 10:36:32 Patient NPO since Midnight. 10:36:33 Is the patient allergic to Iodine/contrast media? No. 10:36:34 Is patient on blood thinner?Yes 10:36:37 ACC The patient was administered the following blood thiners within the last 24 hours: ACCPlavix 10:36:39 Patient diabetic? Yes. 10:36:40 If diabetic: On Metformin? Yes 10:36:43 If on Metformin: Last Dose? 01/23/2018 10:36:46 Previous problem with sedation/anesthesia? No ? 10:36:50 Snore? Yes 10:36:51 Sleep apnea? Yes 10:36:52 Deviated septum? No 10:36:53 Opens mouth fully? Yes 10:36:54 Sticks out tongue? Yes 10:36:55 Airway obstruction? No ? 10:36:58 Dentures? No ? 10:37:02 Pre procedure: right dorsailis pedis pulse 1+ Palpable, but thready & weak; easily obliterated 10:37:04 Modified Duncan's test Ulnar < 7 seconds 10:37:07 Patient pain scale 0/10 ?. 10:37:12 IV patent on arrival in left forearm with 0.9% NaCl at [facility]. 10:37:14 Lab results completed and on chart. 10:37:17 Right Radial & Right Groin area was prepped with chlora-prep and draped in sterile fashion 10:37:18 Alarms reviewed by R. N. 10:37:19 Sharps counted by scrub and verified by R.N. 10:37:32 Use device set Radial Dx or PCI 10:37:34 Use device set TAUTH PCI 10:37:38 ACIST Syringe (00727) opened to sterile field. 10:37:38 Medline Cath Pack ([id number]) opened to sterile field. 10:37:39 Bag Decanter (2002S) opened to sterile field. 10:37:40 ACIST Hand Control (56086) opened to sterile field. 10:37:40 ACIST Manifold (18726) opened to sterile field. 10:37:40 Tegaderm 4 x 4 (1626W) opened to sterile field. 10:37:42 DIAGNOSTIC WIRE .035 260cm J wire (637847) opened to sterile field. 10:37:47 INFLATOR Merit BasixCompak (DH5471) opened to sterile field. 10:37:50 CHOICE PT Extra Support 182cm wire ([id number]) opened to sterile field. 10:38:01 SHEATH 6Fr Prelude Radial ([id number]) opened to sterile field. 10:39:53 Radial Cocktail (Verapomil 2mg/Nitro 400mcg/Heparin 1500units) 1 syringe added to field was administered by Mikal Florentino MD; used for procedure; 10:42:45 --------ALL STOP TIME OUT------ 10:42:45 Final Timeout: patient, procedure, and site verified with staff and physician. All members of the team are in agreement. 10:42:48 Right Radial & Right Groin site verified by team. 10:42:50 Physical assessment completed. ASA score P 2 - A patient with mild systemic disease as per Mikal Florentino MD. 10:42:52 Sedation plan: IV Moderate Sedation Medication:Versed, Fentanyl 10:43:08 Versed 2 mg I.V. was administered by Carolina Tijerina RN; for sedation; 10:43:17 Fentanyl 50 mcg I.V. was administered by Carolina Tijerina RN; for sedation; 10:45:00 GUIDE 6FR HS II SH catheter ([id number]) opened to sterile field. 10:49:29 Local anesthetic to right radial artery with Lidocaine 2% by Mikal Florentino MD.INITIAL ACCESS ONLY 10:50:54 Versed 2 mg I.V. was administered by Carolina Tijerina RN; for sedation; 10:50:59 Fentanyl 25 mcg I.V. was administered by Carolina Tijerina RN; for sedation; 10:51:28 Zero performed for pressure channel P1 10:52:59 A 6 Fr Short sheath was inserted into the Right Radial artery 10:53:53 6 Fr HS 2 SH guide catheter was inserted over the wire 10:53:55 Heparin Bolus 4000 units I.V. was administered by Carolina Tijerina RN; for anticoagulation; verified with Dr. Florentino 10:54:50 CPTXS wire advanced. 10:55:35 Versed 1 mg I.V. was administered by Carolina Tijerina RN; for sedation; 10:55:44 Wire advanced across lesion. 10:55:45 Fentanyl 25 mcg I.V. was administered by Carolina Tijerina RN; for sedation; 10:57:28 Place stent Inflation Number: 1 A INTEGRITY RX 2.75 x 26 stent ([id number]) was prepped and advanced across the Mid RCA. The stent was deployed at 13 BARBRA for 0:10 (min:sec). 10:57:48 Stent catheter was removed intact over wire. 10:57:49 Wire removed. 10:57:49 Guide catheter removed. 10:58:24 TR BAND Standard ([id number]) opened to sterile field. 10:58:37 Sheath removed intact; hemostasis achieved with Mechanical Compression to the Right Radial artery. 10:59:43 Procedure ended.(Physican Out) 11:00:46 Fluoroscopy time 02.00 minutes. 11:00:50 Flurop Dose total: 169 11:00:50 Fluoroscopy dose: 169 mGy 11:00:55 Contrast amount:Isovue 300 55ml. 11:00:57 Sharps counted by scrub and verified by R.N. 11:01:01 TR band inflated with 12cc of air. 11:01:03 Insertion/operative site no bleeding no hematoma. 11:01:04 Post Procedure Pulses reassessed and unchanged 11:01:06 Post-procedure physical assessment completed. ASA score P 2 - A patient with mild systemic disease as per Mikal Florentino MD. 11:01:08 Post procedure rhythm: unchanged. 11:01:11 Estimated blood loss: 10 ml 11:01:13 Post procedure instruction explained to patient.Patient verbalizes understanding. 11:01:13 Patient needs reinforcement of post procedure teaching. 11:01:20 Procedure and supply charges have been captured, reviewed, submitted and are correct. 11:01:22 Procedure Complication : No complications 11:02:08 Vital chart was stopped 11:02:08 See physician's report for complete and final results. 11:02:10 Report given to Pre/Post Procedure Room. 11:02:13 Patient transfered to Pre/Post Procedure Room with Stretcher. 11:02:15 Procedure ended. 11:02:15 Full Disclosure recording stopped 11:02:20 End room use (Document Last) Intervention Summary Intervention Notes Time ActionType Lesion and Equipment Action# Pressure Duration Attributes Used 10:57:28 Place stent Mid RCA INTEGRITY RX 1 13 00:10 2.75 x 26 stent ([id number]) Device Usage Item Name Manufacture Quantity Catalog Number Hospital Part Current M inimal Lot# / Charge Number Stock Stock Serial# Code ACIST Syringe Acist 1 98859 589771 902037 172147 2 0 (51958) Medical Systems Inc Medline Cath Medline 1 [id number] 185468 15044 373037 5 Pack ([id number]) Bag Decanter Microtek 1 2001S 395794 10652 035966 5 (2002S) Medical Inc. ACIST Hand Acist 1 07222 535414 076450 302160 5 Control (59569) Medical Systems Inc ACIST Manifold Acist 1 64946 582108 251397 708477 5 (94627) Medical Systems Inc Tegaderm 4 x 4 3M 1 1626W 693027 056815 335626 5 (1626W) DIAGNOSTIC WIRE St Brady 1 227102 846393 506297 522012 3 0 .035 260cm J wire (427542) INFLATOR Merit Merit 1 KW7977 734439 123853 036522 1 5 [facility] Medical (DS1691) CHOICE PT Extra Tom [place] 1 [id number] 324862 719422 337174 5 Support 182cm Scientific wire ([id number]) SHEATH 6Fr Merit 1 [id number] 042851 202242 615267 5 Prelude Radial Medical ([id number]) GUIDE 6FR HS II Medtronic 1 [id number] 397122 84699 376496 1 SH catheter ([id number]) INTEGRITY RX Medtronic 1 [id number] 389408 715016 251992 5 [id number] 2.75 x 26 stent ([id number]) TR BAND Terumo 1 [id number] 943215 417458 062504 4 0 Standard ([id number]) Signature Audit [place] Stage Time Signature Unsigned Intra-Procedure 01/24/2018 Felix Calvo 11:02:36 AM RT(R) Signatures Monitor : Felix Calvo RT Signature : Date : Time : [address] [place] [address]
[2018-01-24 08:57] VITALS: BP 136/90; Ht 172.7 cm; Wt 110.9 kg
[2018-01-24 09:05] LABS: BASOPHILS 0.5 % (0-2); EOSINOPHILS 3.5 % (0-7); HEMATOCRIT 42.2 % (42.0-54.0); HEMOGLOBIN 14.3 g/dL (13.5-17.5); IMMATURE GRANULOCYTES 0.4 % (0-5); LYMPHOCYTES 36.3 % (15-50); MCH 32.1 pg (26.0-34.0); MCHC 33.9 g/dL (31.0-37.0); MCV 94.6 fL (80.0-100.0); MEAN PLATELET VOLUME 11.1 fL (7.4-10.4); MONOCYTES 10.1 % (2-11); NEUTROPHILS 49.2 % (40-80); PLATELET COUNT 207 10x3/uL (130-400); RBC 4.46 10x6/uL (4.20-6.10); WBC 9.3 10x3/uL (4.8-10.8)
[2018-01-24 09:19] LABS: ANION GAP 12.7 mmol/L (8-16); CALCIUM 8.8 mg/dL (8.5-10.1); CARBON DIOXIDE 26.8 mmol/L (21.0-32.0); CREATININE - SERUM 1.4 mg/dL (0.6-1.3); POTASSIUM - SERUM 4.5 mmol/L (3.5-5.1)
[~2018-01-24 15:24] MED LIST changes: +BAYER CHEWABLE81 MG PO; +EFFIENT10 MG PO; +FLOMAX0.4 MG PO; +OMEPRAZOLE40 MG PO; +PLAVIX75 MG PO; +VISTARIL25 MG PO
== END | disposition home or self-care (01) ==
LOC: D.CATH 10:30 → EDBD 15:24
PROVIDERS: Internal Medicine Interventional Cardiology
DX: I25.119 Atherosclerotic heart disease of native coronary artery with unspecified angina pectoris (principal); R94.31 Abnormal electrocardiogram [ECG] [EKG]; I49.3 Ventricular premature depolarization; Z01.812 Encounter for preprocedural laboratory examination

== ENCOUNTER 2018-01-27 13:53 | Emergency (ER) | payer MEDICARE ==
[~2018-01-27] VITALS: Ht 172.7 cm; Wt 109.1 kg
[~2018-01-27 13:53] MED LIST changes: -EFFIENT10 MG PO; -FLOMAX0.4 MG PO; -OMEPRAZOLE40 MG PO; -VISTARIL25 MG PO
[2018-01-27 13:56] VITALS: Ht 172.7 cm; Wt 109.1 kg
[2018-01-27 14:36] LABS: BASOPHILS 0.4 % (0-2); EOSINOPHILS 2.2 % (0-7); HEMATOCRIT 43.8 % (42.0-54.0); IMMATURE GRANULOCYTES 0.4 % (0-5); LYMPHOCYTES 38.3 % (15-50); MCH 32.3 pg (26.0-34.0); MCHC 34.2 g/dL (31.0-37.0); MCV 94.4 fL (80.0-100.0); MONOCYTES 8.3 % (2-11); NEUTROPHILS 50.4 % (40-80); PLATELET COUNT 215 10x3/uL (130-400); RBC 4.64 10x6/uL (4.20-6.10); RDW 13.1 % (11.5-14.5); WBC 11.1 10x3/uL (4.8-10.8)
[2018-01-27 14:45] LABS: APTT 26.8 SECONDS (22.8-39.4); INR 1.01 (0.85-1.17)
[2018-01-27 14:51] LABS: ALBUMIN 3.5 g/dL (3.4-5.0); ALKALINE PHOSPHATASE 141 U/L (46-116); ALT (SGPT) 26 U/L (10-68); BILIRUBIN - TOTAL 0.23 mg/dL (0.2-1.3); CALC OSMOLALITY 283 mosm/kg (275-300); CALCIUM 9.4 mg/dL (8.5-10.1); CARBON DIOXIDE 28.5 mmol/L (21.0-32.0); CHLORIDE - SERUM 102 mmol/L (98-107); CREATININE - SERUM 1.5 mg/dL (0.6-1.3); GLUCOSE 222 mg/dL (74-106); PROTEIN - SERUM 8.7 g/dL (6.4-8.2); SODIUM 138 mmol/L (136-145); UREA NITROGEN 14 mg/dL (7-18); eGFR NON AFRICAN AMERICAN 50 mL/min (90-120)
[2018-01-27 15:09] LABS: CKMB 2.4 U/L (0.0-3.6); CREATINE KINASE 226 UL (21-232); MAGNESIUM - SERUM 2.2 mg/dL (1.8-2.4)
[2018-01-27 15:14] LABS: TROPONIN-I 0.141 ng/mL (0.000-0.060)
[2018-01-27] MEDS ORDERED: OMEPRAZOLE40 MG PO (16:38)
[2018-01-27 18:14] VITALS: BP 154/95
== END 2018-01-27 17:17 | disposition home or self-care (01) ==
LOC: D.ER 13:53
PROVIDERS: Family Medicine
DX: R07.9 Chest pain, unspecified (principal); R14.2 Eructation; I25.10 Atherosclerotic heart disease of native coronary artery without angina pectoris; E11.9 Type 2 diabetes mellitus without complications; I10 Essential (primary) hypertension; K21.9 Gastro-esophageal reflux disease without esophagitis; F17.200 Nicotine dependence, unspecified, uncomplicated; I44.0 Atrioventricular block, first degree; I45.10 Unspecified right bundle-branch block

== ENCOUNTER 2018-02-02 01:29 | Inpatient (IN) | payer MEDICARE ==
[2018-02-02] VITALS (22 sets, daily range): BP systolic 115–155; BP diastolic 86–127; Ht 175.3 cm; Wt 113.2 kg
[~2018-02-02] VITALS: Ht 175.3 cm; Wt 113.2 kg
--- NOTE | ~2018-02-02 | OP ---
PATIENT NAME: MIGUEL CLEMONS MEDICAL RECORD: [id number] :54 LOCATION:D.M2 D.2105 ADMISSION DATE:02/02/18 SURGEON: LELIA CARDENAS MD DATE OF OPERATION: 02/02/2018 PROCEDURES: 1. Left heart catheterization. 2. Selective coronary angiography. 3. Left ventriculogram. 4. PTCA and stent, left circumflex. 5. PTCA, RCA. INDICATION: Non-Q-wave myocardial infarction. DESCRIPTION OF PROCEDURE: After informed consent was obtained with detailed description of risks and benefits as well as alternative therapies, the patient elected to proceed with angiogram and angioplasty. The right femoral area was prepped and draped in normal sterile fashion. Right femoral artery was cannulated via modified Seldinger technique with placement of 6-Kyrgyz sheath. All catheters were exchanged through this sheath. FINDINGS: The left ventriculogram performed in standard 30-degree TRIPP view reveals anteroapical akinesis. Ejection fraction in the 20% range. SELECTIVE CORONARY ANGIOGRAPHY: 1. Left main is with no significant angiographic disease. 2. Left anterior descending is chronically totally occluded, unchanged from previous angiography. 3. Left circumflex is totally occluded at the site of the previously placed stents. This is acute. 4. Right coronary is totally occluded at the site of the previously placed stents. This is acute. It appears that the patient has not been taking aspirin or Plavix as he was directed. He even came back for a staged procedure not being on the aspirin and Plavix and assured us that he would be taking them; however, he is not, hence the acute occlusions of both distended areas. PTCA AND STENT OF THE CIRCUMFLEX. We ballooned this with a 2.5 balloon. There was still significant thrombus burden. I stented this with a 2.5 x 26-mm Integrity stent. Result was 0% residual stenosis with catholic of HECTOR-3 flow. PTCA OF THE RCA: Multiple inflations were made with a 3.0 balloon. This opened the RCA up and restored HECTOR-3 flow. IMPRESSION: Successful PTCA and stent of the left circumflex and PTCA of the RCA, both for acute closures at the site of the previously placed stents, both from noncompliance with dual antiplatelet. We will put him on Effient as well as aspirin at this time. TRANSINT:[id number] Voice Confirmation ID: [id number] DOCUMENT ID: [id number] OPERATIVE REPORT [id number] MIGUEL CLEMONS JEFFREY MD at 1704 CC: [id number] DICTATION DATE: 02/02/18 1156 DATA VISUALIZATION DEVELOPER: 02/02/18 1236 DIS IN 02/04/18 [facility] [address] [id number]
--- NOTE | ~2018-02-02 | MORECARE ---
CASE MANAGEMENT DISCHARGE SUMMARY PATIENT: MIGUEL CLEMONS UNIT: [id number] ADM DATE: 02/02/18 AGE: 67 : 54 SEX: M ROOM/BED: D.210 AUTHOR: MELISSA,DOC PHYSICIAN: REFERRING PHYSICIAN: ADALID MOSS MD DATE OF SERVICE: 02/04/18 Discharge Plan Patient Name: MIGUEL CLEMONS Facility: [facility]:[place] : 1950 Planned Disposition: Home Anticipated Discharge Date: 02/04/18 Discharge Date: 02/04/2018 Expected LOS: 2 Initial Reviewer: [email or web address] Initial Review Date: 02/04/2018 Generated: 02/04/18 5:51 pm Comments DCP- Discharge Planning Updated by [email or web address]: Johny Hendrickson on 02/04/18 3:[address] Patient Name: MIGUEL CLEMONS Admission Status: ER Accout number: [id number] Admission Date: 02-02-2018 : 1950 Admission Diagnosis: Attending: ADALID MOSS Current LOS: 2 Anticipated DC Date: 02-04-2018 Planned Disposition: Home Primary Insurance: MEDICARE A & B Discharge Planning Comments: CM MET WITH PT IN ROOM TO DISCUSS DISCHARGE PLANNING AND NEEDS. PT REPORTS LIVING AT HOME INDEPENDENTLY AND ALONE. PT HAS NON WORKING CPAP BUT HAS APPOINTMENT NEXT MONTH TO ADDRESS THIS ISSUE. PT HAS NO MEDICAL EQUIPMENT PROVIDER PREFERENCE AND NO OUTSIDE SERVICES ASSISTING IN THE HOME. CM DISCUSSED AVAILABILITY OF HOME HEALTH, REHAB SERVICES AND MEDICAL EQUIPMENT. PT DENIES DISCHARGE NEEDS, REPORTS HIS SISTER WILL PICK HIM UP FOR DISCHARGE HOME. IMPORTANT MESSAGE FROM MEDICARE PROVIDED AND EXPLAINED. IMPORTANT MESSAGE FROM MEDICARE PROVIDED AND EXPLAINED. Electronics Tech: Johny Hendrickson DCPIA - Discharge Planning Initial Assessment Updated by [email or web address]: Johny Hendrickson on 02/04/18 4:48 pm * Is the patient Alert and Oriented? Yes * How many steps to enter\exit or inside your home? * PCP [facility] * Pharmacy [facility] [address] * Preadmission Environment Home Alone * ADLs Independent * Equipment CPAP * Other Equipment CPAP NOT WORKING, HAS FOLLOW UP APPOINTMENT WITH PULMONOLOGY IN FEBRUARY 2018. NO MEDICAL EQUIPMENT PROVIDER PREFERENCE * List name and contact numbers for known caregivers / representatives who currently or will assist patient after discharge: DIA PABON, YECENIA, * Verbal permission to speak to the caregivers and representatives has been obtained from the patient. N/A * Community resources currently utilized None * Please name any agencies selected above. NONE * Additional services required to return to the preadmission environment? No * Can the patient safely return to the preadmission environment? Yes * Has this patient been hospitalized within the prior 30 days at any hospital? 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
--- NOTE | ~2018-02-02 | EC ---
PATIENT:MIGUEL CLEMONS DATE OF SERVICE: 02/02/18 SEX: M MEDICAL RECORD: [id number] DATE OF : 54 LOCATION:D.M2 D.210 AGE OF PATIENT: 67 ADMISSION DATE: 02/02/18 REFERRING PHYSICIAN: INTERPRETING PHYSICIAN: CASEY NGUYEN MD ECHOCARDIOGRAM REPORT ECHO CHARGES 4 ECHO COMPLETE Date: 02/02/18 CLINICAL DIAGNOSIS: CHF ECHOCARDIOGRAPHIC MEASUREMENTS (adult normal given) AC root (d.<3.7cm) 3.7 cm LV Septum d (<1.2 cm> 1.6 cm Valve Excursion 2.6 cm LV Septum (systole) 2.2 cm Left Atria (s.<4.0cm> 4.5 cm LVPW d(<1.2cm) 1.5 cm RV (d.<2.3cm) 2.9 cm LVPW (sytole) 1.8 cm LV diastole(<5.6CM) 5.8 cm MV E-F(>70mm/sec) cm LV systole 4.3 cm LVOT Diameter 2.3 cm MV exc.(>10mm) cm Est.ejection fraction (50-75%) % DOPPLER: LVIT cm/sec A 86.0 cm/sec E 95.0 cm/sec LA cm/sec RVSP mmHg LVOT 68.0 cm/sec AOP1/2T m/s Asc. Ao 110 cm/sec RVOT 41.0 cm/sec RA cm/sec PA 64.0 cm/sec AV Gradient Peak 4.9 mmHg AV Mean 3.1 mmHg AV Area 2.7 cm MV Gradient Peak 3.3 mmHg MV Mean 1.5 mmHg MV Area cm COMMENTS: Military Source Operations Officer: 1 LÓPEZ VIDALESOE Candle Making Supervisor: 1 Dr. Florentino TAPE# PACS Pericardial Effusion N DATE OF SERVICE: PROCEDURE: Transthoracic echocardiogram. FINDINGS: 1. This is more a qualitative study, it was difficult to visualize structures. Overall, the patient has a dilated cardiomyopathy with ejection fraction of 20% to 25% and evidence of ovahsoiy-zp-gkawet mitral regurgitation centralized. 2. The right ventricle and right atrium appear to be normal size, shape, structure, and function. There is no pericardial effusion. ECHOCARDIOGRAM REPORT [id number] MIGUEL CLEMONS 3. The aortic valve appears to be grossly normal. 4. The left atrium appears to be moderately dilated. CONCLUSIONS: The patient has a dilated cardiomyopathy with ejection fraction of 20% to 25% and ojhoytee-iz-ycfkql mitral regurgitation. TRANSINT:[id number] Voice Confirmation ID: [id number] DOCUMENT ID: [id number] CASEY NGUYEN MD at 0916 CC: [id number] DICTATION DATE: 02/04/18 1323 DEPUTY CHIEF MAGISTRATE: 02/04/18 1528 DIS IN 02/04/18 [id number] [place] [id number]
--- NOTE | ~2018-02-02 | HEMODYNAMI ---
PATIENT:MIGUEL CLEMONS MEDICAL RECORD: [id number] : 54 LOCATION:[facility] [address] [id number] ADMISSION DATE: 02/02/18 Generatedon:02/02/201811:57 Patient name: MIGUEL CLEMONS Patient #: [id number] SSN: : Date of study: 02/02/2018 Page: Of Hemodynamic Procedure Report Patient Data Patient Demographics Procedure consent was obtained First Name: MIGUEL Gender: Male Last Name: KACI : 1950 Middle Initial: R Age: 67 year(s) Patient #: [id number] Race: Black Additional ID: [id number] Contact details Address: [address] [place] [address] [address] State: [place] City: [facility] Zip code: [address] Past Medical History Allergies: No known allergies Admission Admission Data Admission Date: 02/02/2018 Admission Time: 3:52 Room #: D.2312 Weight (lbs.): 255.74 Weight (kg.): 116 Lab Results Lab Result Date: 02/02/2018 Lab Result Time: 0:00 Biochemistry Name Units Result Min Max BUN mg/dl 15 --(--*-)-- 7 18 Creatinine mg/dl 1.4 --(----)*- 0.6 1.3 CBC Name Units Result Min Max Hemoglobin g/dl 15 --(-*--)-- 13.5 17.5 Platelets 10^3/l 347 --(---*)-- 130 400 Coagulation Name Units Result Min Max INR units 1.06 --(--*-)-- 0.85 1.17 PT sec 13.5 --(--*-)-- 11.6 15 Procedure Procedure Types Cath Procedure Diagnostic Procedure [facility] w/Coronaries PCI Procedure Coronary Stent Coronary Stent Initial PTCA PTCA Initial Procedure Description Procedure Date Procedure Date: 02/02/2018 Procedure Start Time: 11:00 Procedure End Time: 11:55 Procedure Staff Name Function Mikal Florentino MD Performing Physician Arnoldo Bauman RT Monitor Felix Calvo RT Scrub James Noriega RN Nurse Procedure Data Cath Procedure Fluoroscopy Diagnostic fluoroscopy Total fluoroscopy Time: time: 17.4 min 17.4 min Diagnostic fluoroscopy Total fluoroscopy dose: dose: 3748 mGy 3748 mGy Contrast Material Contrast Material Type Amount (ml) Isovue 300 264 Entry Location Entry Primary Successful Side Size Upsize Upsize Entry Closure Colmenares ccessful Closure Location (Fr) 1 (Fr) 2 (Fr) Remarks Device Remarks Radial Right 6 Fr Mechanical artery Short Compression Femoral Right 6 Fr Exoseal artery Short Estimated blood loss: 20 ml Diagnostic catheters Device Type Used For End Catheter Placement DIAGNOSTIC 3DRC 5Fr Procedure catheter ([id number]) DIAGNOSTIC [place] 110cm 5 Procedure Fr catheter (096223) DIAGNOSTIC [place] 110cm 5 Ventriculography Fr catheter (893296) Procedure Medications Medication Administration Route Dosage Effient P.O. 60 mg Heparin Flush Bag added to field 2 bags (1000units/500ml NS) Oxygen etCO2 Nasal cannula 2 l/min 0.9% NaCl I.V. 100 ml/hr Radial Cocktail added to field 1 syringe (Verapomil 2mg/Nitro 400mcg/Heparin 1500units) Fentanyl I.V. 50 mcg Versed I.V. 1 mg Fentanyl I.V. 50 mcg Versed I.V. 1 mg Heparin Bolus I.V. 5000 units Integrilin (Bolus I.V. 10.7 ml 2mg/ml) Integrilin (Bolus wasted 9.3 ml 2mg/ml) Integrilin Drip I.V. drip 18.6 ml/hr (75mg/100ml) Fentanyl I.V. 50 mcg Fentanyl I.V. 50 mcg Hemodynamics Rest HGB: 15 (g/dl) Heart Rate: 130 (bpm) Pressure Samples Time Site Value (mmHg) Purpose Heart Use Rate(bpm) 11:10 LV 102/14,14 Snapshot 59 Snapshots Pre Cath Intra NCS Post Cath Vital Signs Time Heart Resp SPO2 etCO2 NIBP (mmHg) Rhythm Pain Sedation Rate (ipm) (%) (mmHg) Status Level (bpm) 10:41:39 97 16 94 0 128/90(104) NSR 0 (11) 10(A) , No pain 10:45:47 83 17 94 2.2 125/90(103) NSR 0 (11) 10(A) , No pain 10:49:55 93 17 96 0 120/88(97) NSR 0 (11) 10(A) , No pain 10:54:01 82 17 96 0 123/88(101) NSR 0 (11) 10(A) , No pain 10:58:09 82 16 95 3.8 118/84(97) NSR 0 (11) 10(A) , No pain 11:02:12 83 17 96 9.1 127/89(103) NSR 0 (11) 9(A) , No pain 11:06:22 81 16 94 0 113/81(100) NSR 0 (11) 9(A) , No pain 11:10:26 104 16 94 0 117/87(97) NSR 0 (11) 9(A) , No pain 11:14:34 116 16 95 0 112/77(96) NSR 0 (11) 9(A) , No pain 11:18:37 115 17 96 0 115/81(92) NSR 0 (11) 9(A) , No pain 11:22:43 115 17 96 0 122/80(94) NSR 0 (11) 9(A) , No pain 11:26:51 78 17 98 0 117/84(94) NSR 0 (11) 9(A) , No pain 11:30:57 81 17 98 12.9 122/86(97) NSR 0 (11) 9(A) , No pain 11:35:05 80 16 98 7.6 122/86(100) NSR 0 (11) 9(A) , No pain 11:39:12 79 16 96 12.1 124/87(101) NSR 0 (11) 9(A) , No pain 11:43:20 80 17 96 0 126/88(102) NSR 0 (11) 9(A) , No pain 11:47:28 80 17 96 0 128/91(104) NSR 0 (11) 9(A) , No pain 11:51:36 84 18 98 10.6 118/89(104) NSR 0 (11) 9(A) , No pain 11:52:56 83 21 97 13.6 126/93(102) NSR 0 (11) 9(A) , No pain Medications Time Medication Route Dose Verified Delivered Reason Not es Effectiveness by by 10:40:46 Effient P.O. 60 mg Mikal James for Mishel Noriega RN antiplatelet therapy 10:40:56 Heparin Flush added 2 bags Mikal Tangy used for Bag to Mishel Noriega RN procedure (1000units/500ml field NS) 10:41:07 Oxygen etCO2 2 l/min Mikal Ramirez Per physician Nasal Mishel Noriega RN cannula 10:41:16 0.9% NaCl I.V. 100 Mikal James Per physician ml/hr Mishel Noriega RN 10:54:51 Radial Cocktail added 1 Mikal Ramirez used for (Verapomil to syringe Mishel Noriega RN procedure 2mg/Nitro field 400mcg/Heparin 1500units) 10:58:09 Fentanyl I.V. 50 mcg Mikal Tangy for sedation Mishel Noriega RN 10:58:13 Versed I.V. 1 mg Mikal Tangy for sedation Mishel Noriega RN 11:00:28 Fentanyl I.V. 50 mcg Mikal Tangy for sedation Mishel Noriega RN 11:00:34 Versed I.V. 1 mg Mikal Tangy for sedation Mishel Noriega RN 11:09:51 Heparin Bolus I.V. 5000 Mikal James for units Mishel Noriega RN anticoagulation 11:10:05 Integrilin I.V. 10.7 ml Mikal Tangy for (Bolus 2mg/ml) Mishel Noriega RN antiplatelet therapy 11:12:03 Integrilin wasted 9.3 ml Mikal Tangy for (Bolus 2mg/ml) Mishel Noriega RN antiplatelet therapy 11:16:29 Integrilin Drip I.V. 18.6 Mikal Tangy for (75mg/100ml) drip ml/hr Mishel Noriega RN antiplatelet therapy 11:37:05 Fentanyl I.V. 50 mcg Mikal James for sedation Mishel Noriega RN 11:43:49 Fentanyl I.V. 50 mcg Mikal James for sedation Mishel Noriega RN Procedure Log Time Note 10:10:08 Arnoldo ROBERTO(R) (CV) sent for patient. Start room use. 10:21:15 Time tracking: Regular hours (M-F 7:00 - 5:00) 10:21:18 Plan of Care:Hemodynamics will remain stable., Cardiac rhythm will remain stable., Comfort level will be maintained., Respiratory function will remain adequate., Patient/ family verbilizes understanding of procedure., Procedure tolerated without complication., Recovers from procedure without complications.. 10:32:03 Lab Result : Platelets 347 10^3/l 10:32:03 Lab Result : PT 13.5 sec 10:32:03 Lab Result : INR 1.06 units 10:32: Lab Result : BUN 15 mg/dl 10:32: Lab Result : Creatinine 1.4 mg/dl 10:32:03 Lab Result : Hemoglobin 15 g/dl 10:32:17 Patient Weight : 255.74 lbs 10:32:27 Patient received from PCU to CCL 2 Alert and oriented. Tansferred to table in Supine position. 10:32:28 Warm blankets applied, and halie hugger turned on for patient comfort. 10:32:28 Correct patient and procedure confirmed by team. 10:32:29 Signed procedure consent form obtained from patient. 10:32:30 ECG and BP/O2 sat monitors applied to patient. 10:40:35 Vital chart was started 10:40:46 Effient 60 mg P.O. was administered by James Noriega RN; for antiplatelet therapy; 10:40:56 Heparin Flush Bag (1000units/500ml NS) 2 bags added to field was administered by James Noriega RN; used for procedure; 10:41:07 Oxygen 2 l/min etCO2 Nasal cannula was administered by James Noriega RN; Per physician; 10:41:16 0.9% NaCl 100 ml/hr I.V. was administered by James Noriega RN; Per physician; 10:43:35 Baseline sample Acquired. 10:43:55 Rhythm: sinus rhythm 10:43:57 Full Disclosure recording started 10:44:40 H&P Date Dictated: 02/02/2018 Within 30 days and on chart.. 10:44:44 Pre-procedure instructions explained to patient. 10:44:45 Pre-op teaching completed and patient verbalized understanding. 10:44:47 Family unavailable. 10:44:51 Patient NPO since Midnight. 10:44:59 Patient allergic to No known allergies 10:45:03 Is the patient allergic to Iodine/contrast media? No. 10:45:05 Is patient on blood thinner?Yes 10:45:10 ACC The patient was administered the following blood thiners within the last 24 hours: ACCPlavix, ACCEffient 10:45:16 Patient diabetic? No. 10:45:19 ----Pre-sedation anethsthesia assessment.---- 10:45:23 Previous problem with sedation/anesthesia? No ? 10:45:28 Snore? Yes 10:45:29 Sleep apnea? Yes 10:45:31 Deviated septum? No 10:45:32 Opens mouth fully? Yes 10:45:33 Sticks out tongue? Yes 10:45:35 Airway obstruction? No ? 10:45:38 Dentures? No ? 10:45:55 Pre procedure: right dorsailis pedis pulse 2+ Normal; easily identifiable; not easily obliterated 10:46:00 Patient pain scale 3/10 ?. 10:46:09 IV patent on arrival in left wrist with 0.9% NaCl at O. 10:46:12 Lab results completed and on chart. 10:46:18 Right Radial & Right Groin area was prepped with chlora-prep and draped in sterile fashion 10:46:20 Alarms reviewed by R. N. 10:46:21 Sharps counted by scrub and verified by R.N. 10:47:24 Use device set Radial Dx or PCI 10:47:25 ACIST Syringe (50275) opened to sterile field. 10:47:26 Medline Cath Pack ([id number]) opened to sterile field. 10:47:27 Bag Decanter (2002) opened to sterile field. 10:47:27 DIAGNOSTIC WIRE .035 260cm J wire (965519) opened to sterile field. 10:47:28 ACIST Hand Control (59837) opened to sterile field. 10:47:29 ACIST Manifold (70808) opened to sterile field. 10:47:29 Tegaderm 4 x 4 (1626W) opened to sterile field. 10:47:30 MBrace Wrist Support (945277724) opened to sterile field. 10:47:33 TR BAND Large ([id number]) opened to sterile field. 10:47:36 SHEATH 6FR Slender (99-1270) opened to sterile field. 10:54:51 Radial Cocktail (Verapomil 2mg/Nitro 400mcg/Heparin 1500units) 1 syringe added to field was administered by James Noriega RN; used for procedure; 10:55:37 Physician arrived 10:55:37 --------ALL STOP TIME OUT------ 10:55:38 Final Timeout: patient, procedure, and site verified with staff and physician. All members of the team are in agreement. 10:55:41 Right Radial & Right Groin site verified by team. 10:55:45 Physical assessment completed. ASA score P 2 - A patient with mild systemic disease as per Mikal Florentino MD. 10:55:50 Sedation plan: IV Moderate Sedation Medication:Versed, Fentanyl 10:56:15 Zero performed for pressure channel P1 10:58:09 Fentanyl 50 mcg I.V. was administered by James Noriega RN; for sedation; 10:58:13 Versed 1 mg I.V. was administered by James Noriega RN; for sedation; 10:59:58 Procedure started. 11:00:08 Local anesthetic to right radial artery with Lidocaine 2% by Mikal Florentino MD.INITIAL ACCESS ONLY 11:00:28 Fentanyl 50 mcg I.V. was administered by James Noriega RN; for sedation; 11:00:34 Versed 1 mg I.V. was administered by James Noriega RN; for sedation; 11:00:44 A 6 Fr Short sheath was inserted into the Right Radial artery 11:01:52 A DIAGNOSTIC 3DRC 5Fr catheter ([id number]) was advanced over the wire and used for Procedure. 11:03:37 RCA angiography performed. 11:04:05 UNABLE TO CANNULATE LCA 11:04:09 A DIAGNOSTIC [place] 110cm 5 Fr catheter (736004) was advanced over the wire and used for Procedure. 11:05:04 LCA angiography performed. 11:05:40 Catheter removed. 11:05:41 Proceeding to intervention. 11:08:00 GUIDE 6FR AR 2.0 SH catheter (UN3MG3FS) opened to sterile field. 11:08:07 CHOICE PT Extra Support 182cm wire (5503313M4) opened to sterile field. 11:08:09 INFLATOR Felicity Gary (LC1384) opened to sterile field. 11:08:23 6 Fr AR 2 SH guide catheter was inserted over the wire 11:08:29 Guide catheter removed. 11:08:36 Guide Catheter removed. unable to cannulate vessel. 11:08:46 GUIDE 6FR HS II SH catheter ([id number]) opened to sterile field. 11:09:44 A DIAGNOSTIC [place] 110cm 5 Fr catheter (868001) was advanced over the wire and used for Ventriculography. 11:09:51 Heparin Bolus 5000 units I.V. was administered by James Noriega RN; for anticoagulation; 11:10:05 Integrilin (Bolus 2mg/ml) 10.7 ml I.V. was administered by James Noriega RN; for antiplatelet therapy; 11:11:06 LV hemodynamics recorded. 11:11:13 EF : 20 % 11:11:17 LV gram done using TRIPP 11:11:22 Catheter removed. 11:11:51 6 Fr HS 2 SH guide catheter was inserted over the wire 11:12:03 Integrilin (Bolus 2mg/ml) 9.3 ml wasted was administered by James Noriega RN; for antiplatelet therapy; 11:13:35 CHOICE wire advanced. 11:13:42 Wire advanced across lesion. 11:16:22 WHISPER 190cm wire ([id number]) opened to sterile field. 11:16:29 Integrilin Drip (75mg/100ml) 18.6 ml/hr I.V. drip was administered by James Noriega RN; for antiplatelet therapy; 11:16:50 WHISPER WIRE ADVANCED FOR JOSELIN SUPPORT 11:18:26 Inflate balloon Inflation number: 1 A EUPHORA 3.0 x 30 Balloon ([id number]) was prepped and advanced across the Prox RCA, then inflated to 15 BARBRA for 0:10 (min:sec). 11:18:42 MULTIPLE INFLATIONS 11:19:35 Inflation number: 2 The EUPHORA 3.0 x 30 Balloon ([id number]) was reinflated across the Prox RCA, to 21 BARBRA for 0:10 (min:sec). 11:19:42 MULTIPLE INFLATIONS 11:20:52 Balloon removed over the wire. 11:20:53 Wire removed. 11:20:54 Wire removed. 11:20:56 Guide catheter removed. 11:21:36 GUIDE 6FR XBLAD 3.5 catheter (91640594) opened to sterile field. 11:21:56 6 Fr XBLAD 3.5 guide catheter was inserted over the wire 11:24:15 Guide Catheter removed. unable to cannulate vessel. 11:24:25 GUIDE 6FR XBC 3 (66590207) opened to sterile field. 11:24:41 6 Fr XBC 3 guide catheter was inserted over the wire 11:26:44 Wire removed. damaged. 11:27:27 CHOICE PT Extra Support J 300cm guide wire (1979425J0) opened to sterile field. 11:29:11 CHOICE wire advanced. 11:30:33 Wire removed. 11:30:41 Guide Catheter removed. unable to cannulate vessel. 11:31:12 GUIDE 6FR EBU 3.0 catheter (TF7UYT40) opened to sterile field. 11:31:29 6 Fr EBU 3 guide catheter was inserted over the wire 11:32:07 CHOICE 300 wire advanced. 11:34:20 UNABLE TO CROSS LAD TOTAL OCCLUSION 11:34:59 CHOICE PT Extra Support J 300cm guide wire (5202580T4) opened to sterile field. 11:35:58 Catheter removed. unable to cannulate vessel. 11:36:00 Wire removed. 11:36:24 Local anesthetic to right femoral artery with Lidocaine 2% by Mikal Florentino MD.ADDITIONAL ACCESS 11:36:34 SHEATH 6FR [place] (QVC609) opened to sterile field. 11:37:05 Fentanyl 50 mcg I.V. was administered by James Noriega RN; for sedation; 11:37:29 A 6 Fr Short sheath was inserted into the Right Femoral artery 11:38:07 GUIDE 6FR XB 3.5 catheter (46486226) opened to sterile field. 11:38:38 6 Fr XB3.5 guide catheter was inserted over the wire 11:39:08 CHOICE 300 wire advanced. 11:40:53 Wire advanced across lesion. 11:41:25 Inflate balloon Inflation number: 1 A EMERGE OTW 2.5 x 30 balloon ([id number]) was prepped and advanced across the Prox CX, then inflated to 15 BARBRA for 0:10 (min:sec). 11:41:50 Inflation number: 2 The EMERGE OTW 2.5 x 30 balloon ([id number]) was reinflated across the Prox CX, to 15 BARBRA for 0:10 (min:sec). 11:43:11 Inflation number: 3 The EMERGE OTW 2.5 x 30 balloon ([id number]) was reinflated across the Prox CX, to 17 BARBRA for 0:10 (min:sec). 11:43:28 Inflation number: 4 The EMERGE OTW 2.5 x 30 balloon ([id number]) was reinflated across the Prox CX, to 21 BARBRA for 0:10 (min:sec). 11:43:49 Fentanyl 50 mcg I.V. was administered by James Noriega RN; for sedation; 11:46:08 Balloon removed over the wire. 11:46:51 Place stent Inflation Number: 1 A INTEGRITY RX 2.5 x 26 stent ([id number]) was prepped and advanced across the Mid CX. The stent was deployed at 21 BARBRA for 0:10 (min:sec). 11:47:39 Stent catheter was removed intact over wire. 11:47:39 Wire removed. 11:47:40 Guide catheter removed. 11:47:53 EXOSEAL 6Fr (EX600) opened to sterile field. 11:48:24 Sheath removed intact; hemostasis achieved with Exoseal to the Right Femoral artery. 11:49:59 Procedure type changed to Cath procedure, Diagnostic procedure, LHC, LHC w/Coronaries, PCI procedure, Coronary Stent, Coronary Stent Initial, PTCA, PTCA Initial 11:51:58 Procedure ended.(Physican Out) 11:52:15 Fluoroscopy time 17.40 minutes. 11:52:22 Flurop Dose total: 3748 11:52:22 Fluoroscopy dose: 3748 mGy 11:52:45 Contrast amount:Isovue 300 264ml. 11:52:47 Sharps counted by scrub and verified by R.N. 11:52:52 Post-op/insertion site Right Femoral artery dressed using a 4 x 4 and Tegaderm. 11:52:56 Post right femoral artery:stable 11:53:20 Sheath removed intact; hemostasis achieved with Mechanical Compression to the Right Radial artery. 11:54:16 TR band inflated with 12cc of air. 11:54:32 Post Procedure Pulses reassessed and unchanged 11:54:39 Post-procedure physical assessment completed. ASA score P 2 - A patient with mild systemic disease as per Mikal Florentino MD. 11:54:42 Post procedure rhythm: unchanged. 11:54:50 Estimated blood loss: 20 ml 11:55:29 Post procedure instruction explained to patient.Patient verbalizes understanding. 11:55:30 Patient needs reinforcement of post procedure teaching. 11:55:31 Procedure and supply charges have been captured, reviewed, submitted and are correct. 11:55:38 Vital chart was stopped 11:55:42 See physician's report for complete and final results. 11:55:46 Report given to ICU. 11:55:51 Patient transfered to ICU with Bed. 11:55:55 Procedure ended. 11:55:55 Full Disclosure recording stopped 11:56:08 End room use (Document Last) Intervention Summary Intervention Notes Time ActionType Lesion and Equipment Action# Pressure Duration Attributes Used 11:18:26 Inflate Prox RCA EUPHORA 3.0 1 15 00:10 balloon x 30 Balloon ([id number]) 11:19:35 Reinflate Prox RCA EUPHORA 3.0 2 21 00:10 balloon x 30 Balloon ([id number]) 11:41:25 Inflate Prox CX EMERGE OTW 1 15 00:10 balloon 2.5 x 30 balloon ([id number]) 11:41:50 Reinflate Prox CX EMERGE OTW 2 15 00:10 balloon 2.5 x 30 balloon ([id number]) 11:43:11 Reinflate Prox CX EMERGE OTW 3 17 00:10 balloon 2.5 x 30 balloon (0566959005) 11:43:28 Reinflate Prox CX EMERGE OTW 4 21 00:10 balloon 2.5 x 30 balloon ([id number]) 11:46:51 Place stent Mid CX INTEGRITY RX 1 21 00:10 2.5 x 26 stent ([id number]) Device Usage Item Name Manufacture Quantity Catalog Number Hospital Part Current Min imal Lot# / Charge Number Stock Stock Serial# Code ACIST Acist 1 20338 036945 373307 063471 20 Syringe [employer] (87601) [employer] Medline Cath Medline 1 [id number] 408707 74564 420485 5 Pack ([id number]) Bag Decanter Microtek 1 959134 94390 193735 5 (2002S) Medical Inc. DIAGNOSTIC [place] 1 602056 457848 100118 593140 30 WIRE .035 260cm J wire (352363) ACIST Hand Acist 1 47116 897265 176170 262831 5 Control Medical (49065) Systems Inc ACIST Acist 1 84245 392413 099694 393189 5 Manifold Medical (49264) Systems Inc Tegaderm 4 x 3M 1 1626W 282569 663535 337042 5 4 (1626W) MBrace Wrist Advanced 1 140-0250-00 665048 85232 659494 5 Support Vascular (819061651) Dynamics TR BAND Terumo 1 [id number] 741957 156294 931351 40 Large (KCN00WCB) SHEATH 6FR Terumo 1 [id number] 985914 073128 216217 40 Slender (80-1060) DIAGNOSTIC Cardinal 1 954906D 172641 373927 157418 9 3DRC 5Fr Health catheter (933924V) DIAGNOSTIC Terumo 1 40-5013 628936 046792 303543 5 [place] 110cm 5 Fr catheter (450461) GUIDE 6FR AR Medtronic 1 [id number] 014590 65280 863014 1 2.0 SH catheter (OF6XY0RJ) CHOICE PT [place] 1 [id number] 057096 290905 000732 5 Extra Scientific Support 182cm wire (8382998P9) INFLATOR Merit 1 MS5561 078252 371362 378899 15 [facility] Medical BasixCompak (JL3957) GUIDE 6FR HS Medtronic 1 GV4YIEYHC 829820 45390 401473 1 II SH catheter (EQ5ACOFUH) WHISPER [place] 1 [id number] 312418 407189 969565 5 190cm wire Vascular (9645004DA) EUPHORA 3.0 Medtronic 1 [id number] 894143 421333 496837 5 232941307 x 30 Balloon (QCI2699T) GUIDE 6FR Cardinal 1 47675046 352193 208549 783678 10 XBLAD 3.5 Health catheter (21194467) GUIDE 6FR Cardinal 1 33696921 282412 37240 127462 5 XBC 3 Health (30330933) CHOICE PT [place] 1 [id number] 062092 641554 083035 5 Extra Scientific Support J 300cm guide wire (0022260L6) GUIDE 6FR Medtronic 1 WF4YJH15 991298 30771 082048 0 EBU 3.0 catheter (EN0LII93) SHEATH 6FR Terumo 1 IVC435 627898 369281 734868 40 [place] (YGH023) GUIDE 6FR XB Cardinal 1 34762586 174430 862142 502625 2 3.5 catheter Health (11985805) EMERGE OTW [place] 1 [id number] 444121 123805 228738 5 06619281 2.5 x 30 Scientific balloon (9661496855) INTEGRITY RX Medtronic 1 [id number] 004110 708053 754474 5 [id number] 2.5 x 26 stent ([id number]) EXOSEAL 6Fr Cardinal 1 EX600 725820 685553 340150 10 (EX600) Health Signature Audit [place] Stage Time Signature Unsigned Intra-Procedure 02/02/2018 Arnoldo Bauman RT(Julissa) 11:57:09 AM () Signatures Monitor : Arnoldo Bauman RT Signature : Date : Time : [address] [address]
[~2018-02-02 01:29] MED LIST changes: +OMEPRAZOLE40 MG PO
[2018-02-02 01:47] LABS: BASOPHILS 0.4 % (0-2); EOSINOPHILS 2.1 % (0-7); IMMATURE GRANULOCYTES 0.6 % (0-5); LYMPHOCYTES 38.5 % (15-50); MCH 32.5 pg (26.0-34.0); MCHC 34.1 g/dL (31.0-37.0); MCV 95.2 fL (80.0-100.0); MONOCYTES 8.6 % (2-11); NEUTROPHILS 49.8 % (40-80); RBC 4.62 10x6/uL (4.20-6.10); RDW 12.9 % (11.5-14.5); WBC 19.6 10x3/uL (4.8-10.8)
[2018-02-02 01:51] LABS: PLATELET COUNT 347 10x3/uL (130-400)
[2018-02-02 01:56] LABS: APTT 27.2 SECONDS (22.8-39.4); INR 1.06 (0.85-1.17); PROTIME 13.5 SECONDS (11.6-15.0)
[2018-02-02 01:57] LABS: D-DIMER-QUANTITATIVE 0.82 ug/mLFEU (0.20-0.54)
[2018-02-02 02:06] LABS: ALBUMIN 3.3 g/dL (3.4-5.0); ALKALINE PHOSPHATASE 148 U/L (46-116); ALT (SGPT) 29 U/L (10-68); BILIRUBIN - TOTAL 0.34 mg/dL (0.2-1.3); CALC OSMOLALITY 281 mosm/kg (275-300); CALCIUM 8.9 mg/dL (8.5-10.1); CARBON DIOXIDE 23.2 mmol/L (21.0-32.0); CHLORIDE - SERUM 101 mmol/L (98-107); CREATININE - SERUM 1.6 mg/dL (0.6-1.3); GLUCOSE 242 mg/dL (74-106); POTASSIUM - SERUM 3.2 mmol/L (3.5-5.1); PROTEIN - SERUM 9.7 g/dL (6.4-8.2); SODIUM 139 mmol/L (136-145); UREA NITROGEN 0 mg/dL (7-18); eGFR NON AFRICAN AMERICAN 46 mL/min (90-120)
[2018-02-02 02:20] LABS: CKMB 4.4 U/L (0.0-3.6); CREATINE KINASE 352 UL (21-232); MAGNESIUM - SERUM 2.2 mg/dL (1.8-2.4); PRO BNP 1946 pg/mL (0-125)
[2018-02-02 02:27] LABS: TROPONIN-I 0.111 ng/mL (0.000-0.060)
[2018-02-02 02:41] LABS: APPEARANCE CLEAR (CLEAR); BILIRUBIN NEGATIVE (NEGATIVE); COLOR YELLOW (YELLOW); GLUCOSE NEGATIVE (NEGATIVE); KETONE NEGATIVE (NEGATIVE); NITRITE NEGATIVE (NEGATIVE); PROTEIN 2+ mg/dL (NEGATIVE); UROBILINOGEN NORMAL (NORMAL)
[2018-02-02 02:43] LABS: BACTERIA NONE SEEN /hpf (NONE SEEN); EPITHELIAL CELLS 0-5 /hpf (0-5); RED CELLS - URINE 0-5 /hpf (0-5); WHITE CELLS - URINE 0-5 /hpf (0-5)
[2018-02-02 07:12] LABS: BASOPHILS 0.2 % (0-2); EOSINOPHILS 0.3 % (0-7); HEMATOCRIT 37.9 % (42.0-54.0); HEMOGLOBIN 12.9 g/dL (13.5-17.5); IMMATURE GRANULOCYTES 0.3 % (0-5); LYMPHOCYTES 14.2 % (15-50); MEAN PLATELET VOLUME 10.7 fL (7.4-10.4); MONOCYTES 5.8 % (2-11); NEUTROPHILS 79.2 % (40-80); RBC 4.03 10x6/uL (4.20-6.10); RDW 12.9 % (11.5-14.5)
[2018-02-02 07:14] LABS: PLATELET COUNT 257 10x3/uL (130-400); WBC 14.1 10x3/uL (4.8-10.8)
[2018-02-02 07:48] LABS: ALBUMIN 2.8 g/dL (3.4-5.0); ALKALINE PHOSPHATASE 123 U/L (46-116); ALT (SGPT) 27 U/L (10-68); BILIRUBIN - TOTAL 0.26 mg/dL (0.2-1.3); CALCIUM 8.4 mg/dL (8.5-10.1); CARBON DIOXIDE 25.3 mmol/L (21.0-32.0); CHLORIDE - SERUM 100 mmol/L (98-107); CKMB 9.3 U/L (0.0-3.6); CREATINE KINASE 321 UL (21-232); CREATININE - SERUM 1.4 mg/dL (0.6-1.3); GLUCOSE 244 mg/dL (74-106); PRO BNP 2152 pg/mL (0-125); PROTEIN - SERUM 8.2 g/dL (6.4-8.2); SODIUM 137 mmol/L (136-145); eGFR NON AFRICAN AMERICAN 54 mL/min (90-120)
[2018-02-02 07:49] LABS: CALC OSMOLALITY 282 mosm/kg (275-300); POTASSIUM - SERUM 3.8 mmol/L (3.5-5.1); UREA NITROGEN 15 mg/dL (7-18)
[2018-02-02 07:50] LABS: TROPONIN-I 4.151 ng/mL (0.000-0.060)
[2018-02-02 10:41] LABS: CKMB 26.1 U/L (0.0-3.6); CREATINE KINASE 432 UL (21-232)
[2018-02-02 10:56] LABS: PLT FUNCT.(P2Y12) PLAVIX 191 PRU (194-418)
[2018-02-02 17:31] LABS: CREATINE KINASE 1307 UL (21-232)
[2018-02-02 22:10] LABS: CKMB 192.8 U/L (0.0-3.6)
[2018-02-02 22:12] LABS: CREATINE KINASE 1669 UL (21-232)
[2018-02-02 22:13] LABS: TROPONIN-I 45.841 ng/mL (0.000-0.060)
[2018-02-03] VITALS: BP 128/88
[2018-02-03 04:00] VITALS: BP 132/88
[2018-02-03 07:05] LABS: ANION GAP 16.8 mmol/L (8-16); CARBON DIOXIDE 24.7 mmol/L (21.0-32.0); CREATININE - SERUM 1.4 mg/dL (0.6-1.3); POTASSIUM - SERUM 4.5 mmol/L (3.5-5.1)
[2018-02-03 07:06] LABS: BASOPHILS 0.4 % (0-2); EOSINOPHILS 1.7 % (0-7); HEMOGLOBIN 12.5 g/dL (13.5-17.5); IMMATURE GRANULOCYTES 0.5 % (0-5); LYMPHOCYTES 18.8 % (15-50); MCH 31.3 pg (26.0-34.0); MCHC 33.8 g/dL (31.0-37.0); MCV 92.7 fL (80.0-100.0); MEAN PLATELET VOLUME 10.7 fL (7.4-10.4); MONOCYTES 13.1 % (2-11); NEUTROPHILS 65.5 % (40-80); PLATELET COUNT 260 10x3/uL (130-400); RBC 3.99 10x6/uL (4.20-6.10); RDW 12.9 % (11.5-14.5)
[2018-02-03 08:19] VITALS: BP 132/90
[2018-02-03] MEDS ORDERED: VISTARIL25 MG PO (08:50)
[2018-02-03 11:02] VITALS: BP 119/86
[2018-02-03 15:02] VITALS: BP 114/85
[2018-02-04 04:21] LABS: BASOPHILS 0.2 % (0-2); EOSINOPHILS 2.5 % (0-7); HEMATOCRIT 35.7 % (42.0-54.0); HEMOGLOBIN 11.9 g/dL (13.5-17.5); IMMATURE GRANULOCYTES 0.3 % (0-5); LYMPHOCYTES 21.9 % (15-50); MCH 31.2 pg (26.0-34.0); MCHC 33.3 g/dL (31.0-37.0); MCV 93.7 fL (80.0-100.0); MEAN PLATELET VOLUME 10.2 fL (7.4-10.4); MONOCYTES 14.3 % (2-11); NEUTROPHILS 60.8 % (40-80); PLATELET COUNT 249 10x3/uL (130-400); RBC 3.81 10x6/uL (4.20-6.10); RDW 12.9 % (11.5-14.5); WBC 9.4 10x3/uL (4.8-10.8)
[2018-02-04 04:35] LABS: ANION GAP 9.4 mmol/L (8-16); CALCIUM 9.2 mg/dL (8.5-10.1); CARBON DIOXIDE 30.8 mmol/L (21.0-32.0); CREATININE - SERUM 1.7 mg/dL (0.6-1.3); POTASSIUM - SERUM 4.2 mmol/L (3.5-5.1)
[2018-02-04 08:07] VITALS: BP 110/78
[2018-02-04] MEDS ORDERED: EFFIENT10 MG PO (11:01)
[2018-02-04] MEDS ORDERED: FLOMAX0.4 MG PO (11:01)
[2018-02-04 11:34] VITALS: BP 116/89
== END 2018-02-04 13:49 | disposition home or self-care (01) | DRG 248 ==
LOC: D.ER 01:29 → D.EDHOLD 03:52 → D.M2 03:52 → D.ICU 03:52 → D.M2 21:52
PROVIDERS: Family Medicine; Internal Medicine Interventional Cardiology; Internal Medicine Nephrology
PROC: 4A023N7 Measurement of Cardiac Sampling and Pressure, Left Heart, Percutaneous Approach (ICD-10-PCS; 2018-02-02)
PROC: B2111ZZ Fluoroscopy of Multiple Coronary Arteries using Low Osmolar Contrast (ICD-10-PCS; 2018-02-02)
PROC: B2151ZZ Fluoroscopy of Left Heart using Low Osmolar Contrast (ICD-10-PCS; 2018-02-02)
PROC: 02703DZ Dilation of Coronary Artery, One Artery with Intraluminal Device, Percutaneous Approach (ICD-10-PCS; principal; 2018-02-02 09:30)
PROC: 02703ZZ Dilation of Coronary Artery, One Artery, Percutaneous Approach (ICD-10-PCS; 2018-02-02 09:30)
DX: I21.4 Non-ST elevation (NSTEMI) myocardial infarction (principal); J96.01 Acute respiratory failure with hypoxia; J18.9 Pneumonia, unspecified organism; N17.9 Acute kidney failure, unspecified; I25.10 Atherosclerotic heart disease of native coronary artery without angina pectoris; F17.200 Nicotine dependence, unspecified, uncomplicated; I11.0 Hypertensive heart disease with heart failure; I50.9 Heart failure, unspecified; E11.9 Type 2 diabetes mellitus without complications; K21.9 Gastro-esophageal reflux disease without esophagitis; N40.0 Benign prostatic hyperplasia without lower urinary tract symptoms; D64.9 Anemia, unspecified

== ENCOUNTER 2018-03-03 12:15 | Inpatient (IN) | payer MEDICARE ==
[~2018-03-03] VITALS: Ht 175.3 cm; Wt 118.2 kg
[2018-03-03] VITALS (11 sets, daily range): BP systolic 127–194; BP diastolic 85–135; BMI 37.0
--- NOTE | ~2018-03-03 | MORECARE ---
CASE MANAGEMENT DISCHARGE SUMMARY PATIENT: MIGUEL CLEMONS UNIT: [id number] ADM DATE: 03/03/18 AGE: 67 : 54 SEX: M ROOM/BED: D.2132 AUTHOR: RICARDO TORRES PHYSICIAN: REFERRING PHYSICIAN: ADALID MOSS MD DATE OF SERVICE: 03/05/18 Discharge Plan Patient Name: MIGUEL CLEMONS Facility: [facility]:[place] : 1950 Planned Disposition: Home with Home Health Anticipated Discharge Date: 03/05/18 Discharge Date: 03/05/2018 Expected LOS: 2 Initial Reviewer: [email or web address] Initial Review Date: 03/03/2018 Generated: 03/05/18 6:30 pm DCPIA - Discharge Planning Initial Assessment Updated by [email or web address]: Laura Lopez on 03/05/18 5:27 pm * Is the patient Alert and Oriented? Yes * How many steps to enter\exit or inside your home? 10 * PCP Hunter Jaimes with [facility] * Pharmacy [facility] * Preadmission Environment Home Alone * ADLs Independent * Equipment CPAP * Other Equipment [facility] pt does not have the unit because he has a copay of $80.00 * List name and contact numbers for known caregivers / representatives who currently or will assist patient after discharge: Misty storey- [phone] * Verbal permission to speak to the caregivers and representatives has been obtained from the patient. No * Community resources currently utilized Home Health * Please name any agencies selected above. [facility] for SN and physical therapy * Additional services required to return to the preadmission environment? No * Can the patient safely return to the preadmission environment? Yes * Has this patient been hospitalized within the prior 30 days at any hospital? Yes Last DP export: 03/05/18 4:23 Patient Name: MIGUEL CLEMONS Page 71598 at 1730 All edits/amendments must be made on the electronic document DICTATION DATE: 03/05/18 173 VP PURCHASING: SHIVA 03/05/181729 RPT#: [id number] DC DATE:03/05/18 STATUS: DIS IN [facility] [address] [facility] [place] [address] END OF REPORT
--- NOTE | ~2018-03-03 | MORECARE ---
CASE MANAGEMENT DISCHARGE SUMMARY PATIENT: MIGUEL CLEMONS UNIT: [id number] ADM DATE: 03/03/18 AGE: 67 : 52 SEX: M ROOM/BED: D.2135 AUTHOR: MELISSA,DOC PHYSICIAN: REFERRING PHYSICIAN: ADALID MOSS MD DATE OF SERVICE: 03/07/18 Discharge Plan Patient Name: MIGUEL CLEMONS Facility: [facility]:[place] : 1950 Planned Disposition: Home with Home Health Anticipated Discharge Date: 03/05/18 Discharge Date: 03/05/2018 Expected LOS: 2 Initial Reviewer: [email or web address] Initial Review Date: 03/03/2018 Generated: 03/07/18 12:33 pm Comments DCP- Discharge Planning Updated by [email or web address]: Laura Lopez on 03/05/18 4:[address] Late Entry 1230 Patient was sitting OOB in the chair. He had called his family to arrange for transportation. He says he can obtain his medications. He does not have his CPAP because he cannot afford the $80.00 co/pay. CM states perhaps Ryley could help with partial payment. He is trying to save the money. he has 10 steps with no rail to enter his home but enters thru the back door. Pharmacy - [facility]- CM called and spoke with the production controller nurse Alicia at 1600. Confirmed the patient is a client. Faxed discharge paperwork and discharge summary. She is contact the patient with visit date. CM advised he did not have his CPAP and why. . DCPIA - Discharge Planning Initial Assessment Updated by [email or web address]: Laura Lopez on 03/05/18 5:27 pm * Is the patient Alert and Oriented? Yes * How many steps to enter\exit or inside your home? 10 * PCP Hunter Jaimes with [facility] * Pharmacy [facility] * Preadmission Environment Home Alone * ADLs Independent * Equipment CPAP * Other Equipment [facility] pt does not have the unit because he has a copay of $80.00 * List name and contact numbers for known caregivers / representatives who currently or will assist patient after discharge: Misty Fernandez -son- [phone] * Verbal permission to speak to the caregivers and representatives has been obtained from the patient. No * Community resources currently utilized Home Health * Please name any agencies selected above. [facility] for SN and physical therapy * Additional services required to return to the preadmission environment? No * Can the patient safely return to the preadmission environment? Yes * Has this patient been hospitalized within the prior 30 days at any hospital? Yes Coverage Notice Reviewer: [email or web address] Pradeep Lopez Notice Issued Date-Time: 03/05/2018 13:00 Notice Type: IM Discharge Notice Notice Delivered To: Patient Relationship to Patient: Night Clerk Auditor Name: Delivery Method: HAND - Hand Delivered Sherin Days: Prior Verbal Notification: Recipient Understood Notice: Yes Recipient Signature: Yes Med Rec Note Co-signed by Attending: Coverage Notice Comment: CM discussed Discharge IMM. Patient had no questions. Signature obtained. Copy to the patient. Signed copy to the chart. Last DP export: 03/05/18 4:44 Patient Name: MIGUEL CLEMONS Page 63003 at 1133 All edits/amendments must be made on the electronic document DICTATION DATE: 03/07/18 1132 BASE CLOTH INSPECTOR: SHIVA 03/07/18 1132 RPT#: [id number] DC DATE:03/05/18 STATUS: DIS IN [facility] [address] [place] [address] END OF REPORT
--- NOTE | ~2018-03-03 | MORECARE ---
CASE MANAGEMENT DISCHARGE SUMMARY PATIENT: MIGUEL CLEMONS UNIT: [id number] ADM DATE: 03/03/18 AGE: 67 : 52 SEX: M ROOM/BED: D.2132 AUTHOR: RICARDO TORRES PHYSICIAN: REFERRING PHYSICIAN: ADALID MOSS MD DATE OF SERVICE: 03/05/18 Discharge Plan Patient Name: MIGUEL CLEMONS [facility] [facility] 1950 Planned Disposition: Home with Home Health Anticipated Discharge Date: 03/05/18 Discharge Date: 03/05/2018 Expected LOS: 2 Initial Reviewer: [email or web address] Initial Review Date: 03/03/2018 Generated: 03/05/18 6:22 pm Patient Name: MIGUEL CLEMONS Page 09683 at 1723 All edits/amendments must be made on the electronic document DICTATION DATE: 03/05/181721 SENIOR PHYSICIAN: SHIVA 03/05/181721 RPT#: [id number] DC DATE:03/05/18 STATUS: DIS IN [facility] [address] [place] [address] END OF REPORT
--- NOTE | ~2018-03-03 | MORECARE ---
CASE MANAGEMENT DISCHARGE SUMMARY PATIENT: MIGUEL CLEMONS UNIT: [id number] ADM DATE: 03/03/18 AGE: 67 : 52 SEX: M ROOM/BED: D.2135 AUTHOR: MELISSA,DOC PHYSICIAN: REFERRING PHYSICIAN: ADALID MOSS MD DATE OF SERVICE: 03/05/18 Discharge Plan Patient Name: MIGUEL CLEMONS Facility: [facility]:[place] : 1950 Planned Disposition: Home with Home Health Anticipated Discharge Date: 03/05/18 Discharge Date: 03/05/2018 Expected LOS: 2 Initial Reviewer: [email or web address] Initial Review Date: 03/03/2018 Generated: 03/05/18 6:43 pm Comments DCP- Discharge Planning Updated by [email or web address]: Laura Lopez on 03/05/18 4:[address] Late Entry 1230 Patient was sitting OOB in the chair. He had called his family to arrange for transportation. He says he can obtain his medications. He does not have his CPAP because he cannot afford the $80.00 co/pay. CM states perhaps Ryley could help with partial payment. He is trying to save the money. he has 10 steps with no rail to enter his home but enters thru the back door. Pharmacy - [facility]- CM called and spoke with the half section ironer nurse Alicia at 1600. Confirmed the patient is a client. Faxed discharge paperwork and discharge summary. She is contact the patient with visit date. CM advised he did not have his CPAP and why. . DCPIA - Discharge Planning Initial Assessment Updated by [email or web address]: Laura Lopez on 03/05/18 5:27 pm * Is the patient Alert and Oriented? Yes * How many steps to enter\exit or inside your home? 10 * PCP Hunter Jaimes with [facility] * Pharmacy [facility] * Preadmission Environment Home Alone * ADLs Independent * Equipment CPAP * Other Equipment [facility] pt does not have the unit because he has a copay of $80.00 * List name and contact numbers for known caregivers / representatives who currently or will assist patient after discharge: Misty Fernandez [facility]- [phone] * Verbal permission to speak to the caregivers and representatives has been obtained from the patient. No * Community resources currently utilized Home Health * Please name any agencies selected above. [facility] for SN and physical therapy * Additional services required to return to the preadmission environment? No * Can the patient safely return to the preadmission environment? Yes * Has this patient been hospitalized within the prior 30 days at any hospital? Yes Coverage Notice Reviewer: [email or web address] Pradeep Lopez Notice Issued Date-Time: 03/05/2018 13:00 Notice Type: IM Discharge Notice Notice Delivered To: Patient Relationship to Patient: Plant Operations Manager Name: Delivery Method: - Sherin Days: Prior Verbal Notification: Recipient Understood Notice: Recipient Signature: Med Rec Note Co-signed by Attending: Coverage Notice Comment: Last DP export: 03/05/18 4:30 Patient Name: MIGUEL CLEMONS Page [phone] at 1744 All edits/amendments must be made on the electronic document DICTATION DATE: 03/05/181742 VETERINARY POULTRY INSPECTOR: SHIVA 03/05/181742 RPT#: [id number] DC DATE:03/05/18 STATUS: DIS IN [facility] [address] [place] [address] END OF REPORT
[~2018-03-03 12:15] MED LIST changes: +ASPIRIN325 MG PO; +COREG6.25 MG PO; +EFFIENT10 MG PO; +FLOMAX0.4 MG PO; +GLYBURIDE2.5 MG PO; +K-DUR20 MEQ PO; +LASIX40 MG PO; +VISTARIL25 MG PO
[2018-03-03 12:58] LABS: BASOPHILS 0.5 % (0-2); EOSINOPHILS 3.1 % (0-7); HEMATOCRIT 38.3 % (42.0-54.0); HEMOGLOBIN 12.5 g/dL (13.5-17.5); IMMATURE GRANULOCYTES 0.5 % (0-5); LYMPHOCYTES 33.7 % (15-50); MCH 31.1 pg (26.0-34.0); MCHC 32.6 g/dL (31.0-37.0); MCV 95.3 fL (80.0-100.0); MEAN PLATELET VOLUME 10.1 fL (7.4-10.4); MONOCYTES 6.6 % (2-11); NEUTROPHILS 55.6 % (40-80); PLATELET COUNT 212 10x3/uL (130-400); RBC 4.02 10x6/uL (4.20-6.10); RDW 13.9 % (11.5-14.5); WBC 7.7 10x3/uL (4.8-10.8)
[2018-03-03 13:27] LABS: ALBUMIN 3.3 g/dL (3.4-5.0); ANION GAP 17.5 mmol/L (8-16); BILIRUBIN - TOTAL 0.45 mg/dL (0.2-1.3); CALCIUM 8.9 mg/dL (8.5-10.1); CARBON DIOXIDE 22.8 mmol/L (21.0-32.0); CREATININE - SERUM 1.7 mg/dL (0.6-1.3); POTASSIUM - SERUM 4.3 mmol/L (3.5-5.1); PROTEIN - SERUM 8.5 g/dL (6.4-8.2)
[2018-03-03 13:33] LABS: TROPONIN-I 0.029 ng/mL (0.000-0.060)
[2018-03-03 14:01] LABS: APPEARANCE CLEAR (CLEAR); BILIRUBIN NEGATIVE (NEGATIVE); COLOR STRAW (YELLOW); GLUCOSE NEGATIVE (NEGATIVE); KETONE NEGATIVE (NEGATIVE); NITRITE NEGATIVE (NEGATIVE); PROTEIN NEGATIVE (NEGATIVE); UROBILINOGEN NORMAL (NORMAL)
[2018-03-03 14:10] LABS: UDS - AMPHET NEGATIVE QUAL (NEGATIVE); UDS - BARB NEGATIVE QUAL (NEGATIVE); UDS - BENZO NEGATIVE QUAL (NEGATIVE); UDS - COCAINE NEGATIVE QUAL (NEGATIVE); UDS - OPIATE NEGATIVE QUAL (NEGATIVE); UDS - PCP NEGATIVE QUAL (NEGATIVE); UDS - THC NEGATIVE QUAL (NEGATIVE)
[2018-03-04] VITALS (7 sets, daily range): BP systolic 122–147; BP diastolic 82–99; Ht 175.3 cm; Wt 118.2 kg
[2018-03-04 06:30] LABS: BASOPHILS 0.5 % (0-2); EOSINOPHILS 2.4 % (0-7); HEMATOCRIT 35.4 % (42.0-54.0); HEMOGLOBIN 11.6 g/dL (13.5-17.5); IMMATURE GRANULOCYTES 0.2 % (0-5); LYMPHOCYTES 28.2 % (15-50); MCH 30.9 pg (26.0-34.0); MCHC 32.8 g/dL (31.0-37.0); MCV 94.4 fL (80.0-100.0); MEAN PLATELET VOLUME 10.5 fL (7.4-10.4); MONOCYTES 8.4 % (2-11); NEUTROPHILS 60.3 % (40-80); PLATELET COUNT 185 10x3/uL (130-400); RBC 3.75 10x6/uL (4.20-6.10); RDW 13.8 % (11.5-14.5); WBC 8.7 10x3/uL (4.8-10.8)
[2018-03-04 06:42] LABS: ANION GAP 15.3 mmol/L (8-16); CALCIUM 8.8 mg/dL (8.5-10.1); CARBON DIOXIDE 25.6 mmol/L (21.0-32.0); CREATININE - SERUM 1.8 mg/dL (0.6-1.3); POTASSIUM - SERUM 3.9 mmol/L (3.5-5.1)
[2018-03-05] VITALS: BP 134/93
[2018-03-05 05:28] LABS: BASOPHILS 0.5 % (0-2); EOSINOPHILS 2.8 % (0-7); HEMATOCRIT 36.2 % (42.0-54.0); IMMATURE GRANULOCYTES 0.3 % (0-5); LYMPHOCYTES 30.7 % (15-50); MCH 31.5 pg (26.0-34.0); MCHC 33.1 g/dL (31.0-37.0); MEAN PLATELET VOLUME 10.1 fL (7.4-10.4); MONOCYTES 10.2 % (2-11); NEUTROPHILS 55.5 % (40-80); PLATELET COUNT 173 10x3/uL (130-400); RBC 3.81 10x6/uL (4.20-6.10); RDW 13.8 % (11.5-14.5)
[2018-03-05 05:49] VITALS: BP 138/102
[2018-03-05 07:10] LABS: ANION GAP 14.5 mmol/L (8-16); CALCIUM 8.7 mg/dL (8.5-10.1); CARBON DIOXIDE 25.5 mmol/L (21.0-32.0)
[2018-03-05 08:01] VITALS: BP 120/90
[2018-03-05 11:17] VITALS: BP 140/99
== END 2018-03-05 14:59 | disposition home health service (06) | DRG 291 ==
LOC: D.ER 12:15 → D.EDHOLD 13:54 → D.M2 13:54
PROVIDERS: Family Medicine; Internal Medicine Nephrology
DX: I13.0 Hypertensive heart and chronic kidney disease with heart failure and stage 1 through stage 4 chronic kidney disease, or unspecified chronic kidney disease (principal); I50.23 Acute on chronic systolic (congestive) heart failure; J96.01 Acute respiratory failure with hypoxia; N17.9 Acute kidney failure, unspecified; N18.3 Chronic kidney disease, stage 3 (moderate); E11.22 Type 2 diabetes mellitus with diabetic chronic kidney disease; I25.10 Atherosclerotic heart disease of native coronary artery without angina pectoris; Z95.5 Presence of coronary angioplasty implant and graft; E78.5 Hyperlipidemia, unspecified; I25.5 Ischemic cardiomyopathy; F32.9 Major depressive disorder, single episode, unspecified; K21.9 Gastro-esophageal reflux disease without esophagitis; I34.0 Nonrheumatic mitral (valve) insufficiency; D64.9 Anemia, unspecified; N40.0 Benign prostatic hyperplasia without lower urinary tract symptoms

== ENCOUNTER 2018-03-13 13:46 | Emergency (ER) | payer MEDICARE ==
[~2018-03-13] VITALS: Ht 175.3 cm; Wt 113.6 kg
[2018-03-13 13:53] VITALS: Ht 175.3 cm; Wt 113.6 kg
[2018-03-13 14:34] LABS: BASOPHILS 0.4 % (0-2); EOSINOPHILS 1.6 % (0-7); HEMATOCRIT 38.2 % (42.0-54.0); HEMOGLOBIN 12.6 g/dL (13.5-17.5); IMMATURE GRANULOCYTES 0.3 % (0-5); LYMPHOCYTES 35.2 % (15-50); MCH 31.2 pg (26.0-34.0); MCV 94.6 fL (80.0-100.0); MEAN PLATELET VOLUME 10.4 fL (7.4-10.4); MONOCYTES 7.9 % (2-11); NEUTROPHILS 54.6 % (40-80); RBC 4.04 10x6/uL (4.20-6.10); RDW 14.1 % (11.5-14.5)
[2018-03-13 14:38] LABS: PLATELET COUNT 253 10x3/uL (130-400)
[2018-03-13 14:52] LABS: APTT 31.1 SECONDS (22.8-39.4); INR 1.16 (0.85-1.17); PROTIME 14.3 SECONDS (11.6-15.0)
[2018-03-13 14:54] LABS: D-DIMER-QUANTITATIVE 1.75 ug/mLFEU (0.20-0.54)
[2018-03-13 14:55] LABS: ALBUMIN 3.2 g/dL (3.4-5.0); ALKALINE PHOSPHATASE 148 U/L (46-116); ALT (SGPT) 28 U/L (10-68); CALC OSMOLALITY 286 mosm/kg (275-300); CALCIUM 8.5 mg/dL (8.5-10.1); CARBON DIOXIDE 21.7 mmol/L (21.0-32.0); CHLORIDE - SERUM 104 mmol/L (98-107); CREATININE - SERUM 1.8 mg/dL (0.6-1.3); GLUCOSE 184 mg/dL (74-106); POTASSIUM - SERUM 4.1 mmol/L (3.5-5.1); PROTEIN - SERUM 8.1 g/dL (6.4-8.2); SODIUM 140 mmol/L (136-145); UREA NITROGEN 22 mg/dL (7-18); eGFR NON AFRICAN AMERICAN 40 mL/min (90-120)
[2018-03-13 15:12] LABS: CKMB 4.6 U/L (0.0-3.6); CREATINE KINASE 279 UL (21-232); PRO BNP 5034 pg/mL (0-125)
[2018-03-13 17:10] VITALS: BP 119/99
== END 2018-03-13 17:11 | disposition home or self-care (01) ==
LOC: D.ER 13:46
PROVIDERS: Family Medicine
DX: R06.09 Other forms of dyspnea (principal); N18.9 Chronic kidney disease, unspecified; E11.9 Type 2 diabetes mellitus without complications; J81.1 Chronic pulmonary edema; I50.20 Unspecified systolic (congestive) heart failure; R07.9 Chest pain, unspecified; I44.0 Atrioventricular block, first degree; I45.10 Unspecified right bundle-branch block; F17.200 Nicotine dependence, unspecified, uncomplicated

== ENCOUNTER 2018-03-19 09:31 | Emergency (ER) | payer MEDICARE ==
[~2018-03-19] VITALS: Ht 175.3 cm; Wt 118.2 kg
[2018-03-19 09:41] VITALS: Ht 175.3 cm; Wt 118.2 kg
[2018-03-19 13:14] LABS: BASOPHILS 0.5 % (0-2); EOSINOPHILS 1.7 % (0-7); HEMATOCRIT 39.1 % (42.0-54.0); HEMOGLOBIN 12.8 g/dL (13.5-17.5); IMMATURE GRANULOCYTES 0.3 % (0-5); LYMPHOCYTES 34.8 % (15-50); MCH 31.4 pg (26.0-34.0); MCHC 32.7 g/dL (31.0-37.0); MCV 95.8 fL (80.0-100.0); MEAN PLATELET VOLUME 10.4 fL (7.4-10.4); MONOCYTES 8.8 % (2-11); NEUTROPHILS 53.9 % (40-80); PLATELET COUNT 247 10x3/uL (130-400); RBC 4.08 10x6/uL (4.20-6.10); RDW 15.1 % (11.5-14.5); WBC 9.5 10x3/uL (4.8-10.8)
[2018-03-19 13:29] LABS: ALBUMIN 3.3 g/dL (3.4-5.0); ALKALINE PHOSPHATASE 187 U/L (46-116); ALT (SGPT) 229 U/L (10-68); CALC OSMOLALITY 284 mosm/kg (275-300); CALCIUM 9.1 mg/dL (8.5-10.1); CARBON DIOXIDE 21.9 mmol/L (21.0-32.0); CHLORIDE - SERUM 106 mmol/L (98-107); CREATININE - SERUM 1.8 mg/dL (0.6-1.3); POTASSIUM - SERUM 4.4 mmol/L (3.5-5.1); PROTEIN - SERUM 8.3 g/dL (6.4-8.2); SODIUM 139 mmol/L (136-145); UREA NITROGEN 28 mg/dL (7-18); eGFR NON AFRICAN AMERICAN 40 mL/min (90-120)
[2018-03-19 13:32] LABS: GLUCOSE 111 mg/dL (74-106)
[2018-03-19 13:45] LABS: CKMB 6.4 U/L (0.0-3.6); CREATINE KINASE 305 UL (21-232); PRO BNP 6123 pg/mL (0-125)
[2018-03-19 13:49] LABS: TROPONIN-I 0.106 ng/mL (0.000-0.060)
[2018-03-19 18:35] VITALS: BP 131/100
== END 2018-03-19 18:28 | disposition home or self-care (01) ==
LOC: D.ER 09:31
PROVIDERS: Family Medicine
DX: I50.9 Heart failure, unspecified (principal); E11.9 Type 2 diabetes mellitus without complications; I10 Essential (primary) hypertension; I25.10 Atherosclerotic heart disease of native coronary artery without angina pectoris; Z85.46 Personal history of malignant neoplasm of prostate; F17.200 Nicotine dependence, unspecified, uncomplicated

== ENCOUNTER 2018-04-02 06:35 | Inpatient (IN) | payer MEDICARE ==
[~2018-04-02] VITALS: Ht 175.3 cm; Wt 120.9 kg
[2018-04-02] VITALS (8 sets, daily range): BP systolic 110–162; BP diastolic 53–112; BMI 39.9
[2018-04-02 07:31] LABS: BASOPHILS 0.4 % (0-2); EOSINOPHILS 2.3 % (0-7); HEMATOCRIT 40.5 % (42.0-54.0); HEMOGLOBIN 13.1 g/dL (13.5-17.5); IMMATURE GRANULOCYTES 0.2 % (0-5); LYMPHOCYTES 30.8 % (15-50); MCH 31.1 pg (26.0-34.0); MCHC 32.3 g/dL (31.0-37.0); MCV 96.2 fL (80.0-100.0); MEAN PLATELET VOLUME 10.4 fL (7.4-10.4); NEUTROPHILS 55.3 % (40-80); PLATELET COUNT 241 10x3/uL (130-400); RBC 4.21 10x6/uL (4.20-6.10); RDW 15.7 % (11.5-14.5); WBC 8.3 10x3/uL (4.8-10.8)
[2018-04-02 07:35] LABS: APTT 30.6 SECONDS (22.8-39.4); INR 1.38 (0.85-1.17); PROTIME 16.4 SECONDS (11.6-15.0)
[2018-04-02 07:45] LABS: ALBUMIN 3.1 g/dL (3.4-5.0); ALKALINE PHOSPHATASE 216 U/L (46-116); ALT (SGPT) 70 U/L (10-68); BILIRUBIN - TOTAL 1.07 mg/dL (0.2-1.3); CALC OSMOLALITY 283 mosm/kg (275-300); CALCIUM 8.6 mg/dL (8.5-10.1); CARBON DIOXIDE 25.1 mmol/L (21.0-32.0); CHLORIDE - SERUM 104 mmol/L (98-107); CREATININE - SERUM 1.9 mg/dL (0.6-1.3); GLUCOSE 121 mg/dL (74-106); POTASSIUM - SERUM 4.1 mmol/L (3.5-5.1); PROTEIN - SERUM 7.9 g/dL (6.4-8.2); SODIUM 139 mmol/L (136-145); UREA NITROGEN 27 mg/dL (7-18); eGFR NON AFRICAN AMERICAN 38 mL/min (90-120)
[2018-04-02 07:53] LABS: CREATINE KINASE 385 UL (21-232); PRO BNP 7745 pg/mL (0-125); TROPONIN-I 0.034 ng/mL (0.000-0.060)
--- NOTE | 2018-04-02 08:17 | NUR ---
DR. XIE IN TO TALK TO PT AND FAMILY. PT TO BE AN ADMIT TO HOSPITAL.
--- NOTE | 2018-04-02 10:23 | NUR ---
Sat 88 ON RA, PLACED ON 2LPM NC
--- NOTE | 2018-04-02 12:31 | NUR ---
LUNCH TRAY TO PT, SITTING ON SIDE OF BED, DENIES NEEDS AT THIS TIME, SAT 97 ON 2LPM NC
--- NOTE | 2018-04-02 15:31 | NUR ---
PT ARRIVED TO UNIT VIA WC ACCOMPANIED BY FAMILY FROM ER. PT TRANSFERED SELF TO BED. O2 AT 2L VIA NC. PT IS ALERT AND ORIENTED. NON SKID SOCKS GIVEN TO PT. MED REC AND ADMISSION HISTORY COMPLETED. RN TO DO ADMISSION ASSESSMENT. PT HAS NO FURTHER NEEDS AT THIS TIME. CALL LIGHT IN REACH. BED LOW.
[2018-04-02] MEDS ORDERED: COREG12.5 MG PO ×2 (15:33)
--- NOTE | 2018-04-02 16:50 | NUR ---
PT WANTING SOMETHING FOR SLEEP. PT STATES HE HASN'T SLEPT IN TWO DAYS AND HIS DOCOTR ORDERED VISTARIL AT HOME AND IT DOES NOT WORK. STATED TO PT I WOULD CALL THE DOCTOR.
--- NOTE | 2018-04-02 16:56 | MORECARE ---
CASE MANAGEMENT DISCHARGE SUMMARY PATIENT: MIGUEL CLEMONS UNIT: [id number] ADM DATE: 04/02/18 AGE: 67 : 52 SEX: M ROOM/BED: D.3769 AUTHOR: RICARDO TORRES PHYSICIAN: REFERRING PHYSICIAN: ADALID MOSS MD DATE OF SERVICE: 04/02/18 Discharge Plan Patient Name: MIGUEL CLEMONS [facility] [facility] 1950 Planned Disposition: Home Anticipated Discharge Date: 04/04/18 Discharge Date: Expected LOS: 2 Initial Reviewer: [email or web address] Initial Review Date: 04/02/2018 Generated: 04/02/18 5:55 pm Patient Name: MIGUEL CLEMONS Page 37783 at 1656 All edits/amendments must be made on the electronic document DICTATION DATE: 04/02/181654 OPERATIONS EXAMINER: SHIVA 04/02/181654 RPT#: [id number] DC DATE: STATUS: ADM IN [facility] [address] [place] [address] END OF REPORT
--- NOTE | 2018-04-02 17:02 | MORECARE ---
CASE MANAGEMENT DISCHARGE SUMMARY PATIENT: MIGUEL CLEMONS UNIT: [id number] ADM DATE: 04/02/18 AGE: 67 : 52 SEX: M ROOM/BED: D.1214 AUTHOR: MELISSADOC PHYSICIAN: REFERRING PHYSICIAN: ADALID MOSS MD DATE OF SERVICE: 04/02/18 Discharge Plan Patient Name: MIGUEL CLEMONS Facility: [facility]:[place] : 1950 Planned Disposition: Home Anticipated Discharge Date: 04/04/18 Discharge Date: Expected LOS: 2 Initial Reviewer: [email or web address] Initial Review Date: 04/02/2018 Generated: 04/02/18 6:02 pm Comments DCP- Discharge Planning Updated by [email or web address]: Aminata Cordero on 04/02/18 3:[address] Patient Name: MIGUEL CLEMONS Admission Status: ER Accout number: [id number] Admission Date: 04-02-2018 : 1950 Admission Diagnosis: Attending: ADALID MOSS Current LOS: 1 Anticipated DC Date: 04-04-2018 Planned Disposition: Home Primary Insurance: MEDICARE A & B Discharge Planning Comments: CM met with patient, his friend Rona, and his niece to complete initial dc planning assessment. CM educated patient on the CM role and verbal consent given by patient to complete assessment. Patient lives at home with his friend Rona. He reports [facility] has [facility] as well. At discharge patient plans to return home and feels this is a safe discharge. Patient denied known discharge needs at this time. CM will continue to follow and will assist as needed with dc plans/needs. Mock Up Assembler: Aminata Cordero RN, [facility] DCPIA - Discharge Planning Initial Assessment Updated by [email or web address]: Aminata Cordero on 04/02/18 4:57 pm * Is the patient Alert and Oriented? Yes * How many steps to enter\exit or inside your home? 11 * PCP Cindy Hare - [facility] * Preadmission Environment Home with Family * ADLs Independent * Equipment None * List name and contact numbers for known caregivers / representatives who currently or will assist patient after discharge: Rona Lau - live in [facility] [phone] Dale marion - [phone] Cordelia waters - [phone] * Verbal permission to speak to the caregivers and representatives has been obtained from the patient. Yes * Community resources currently utilized Home Health * Please name any agencies selected above. [facility] * Additional services required to return to the preadmission environment? No * Can the patient safely return to the preadmission environment? Yes * Has this patient been hospitalized within the prior 30 days at any hospital? No Last DP export: 04/02/18 3:55 p Patient Name: MIGUEL CLEMONS Page [phone] at 1702 All edits/amendments must be made on the electronic document DICTATION DATE: 04/02/181701 DIGITAL MEDIA REPRESENTATIVE: SHIVA 04/02/181701 RPT#: [id number] DC DATE: STATUS: ADM IN [facility] [address] [place] [address] END OF REPORT
--- NOTE | 2018-04-02 17:04 | NUR ---
SPOKE TO DR. MOSS HE STATED TO RESTART PT'S HOME MEDS AND ORDER AMBIEN 10 FOR SLEEP.
--- NOTE | 2018-04-02 18:18 | NUR ---
PT UP WALKING HALLWAY.
--- NOTE | 2018-04-02 22:05 | NUR ---
PT ALERT AND ORIENTED X 4. UP AB KATERIN. DENIES PAIN AT THIS TIME. VITALS STABLE. MEDS TAKEN WITHOUT DIFFICULTY. C/O DIFFICULTY SLEEPING, AMBIEN GIVEN. NORMAL SINUS ON TELE. R AC IV SL. 2L 02 VIA KS. BS 165, 2 UNITS GIVEN. DENIES FURTHER NEEDS AT THIS TIME. BED LOWERED AND LOCKED. CL IN REACH. SR UP X 2. CPOC.
--- NOTE | 2018-04-02 22:11 | NUR ---
PT STATED " CAN I HAVE MORE PILLOWS, I CANT SLEEP WITH A CHRIS PILLOW LIKE THAT." FOUND PT TWO MORE PILLOWS. PT SATISIFIED. NO FURTHER CONCERNS AT THIS TIME.
[2018-04-02 23:19] LABS: APPEARANCE CLEAR (CLEAR); BILIRUBIN NEGATIVE (NEGATIVE); COLOR YELLOW (YELLOW); GLUCOSE NEGATIVE (NEGATIVE); KETONE NEGATIVE (NEGATIVE); NITRITE NEGATIVE (NEGATIVE); PROTEIN NEGATIVE (NEGATIVE); UROBILINOGEN NORMAL (NORMAL)
--- NOTE | 2018-04-03 00:25 | NUR ---
IV TO R AC PATENT. LASIX GIVEN. PT SOB, NOTED BREATHING WITH ACCESSORY MUSCLES. INFORMED PT HE NEEDED TO LEAVE ON. ASSISTED PT WITH PUTTING BACK ON. NO FURTHER CONCERNS AT THIS TIME. CPOC.
[2018-04-03 04:30] VITALS: BP 159/105
--- NOTE | 2018-04-03 05:00 | NUR ---
PT RESTING IN BED WITH NO DISTRESS. RESPS EVEN/NONLABORED. MONITOR AND CPOC. CALL LIGHT IN REACH. NO NEEDS AT THIS TIME.
[2018-04-03 05:24] LABS: BASOPHILS 0.6 % (0-2); EOSINOPHILS 2.2 % (0-7); HEMATOCRIT 40.9 % (42.0-54.0); HEMOGLOBIN 13.3 g/dL (13.5-17.5); IMMATURE GRANULOCYTES 0.4 % (0-5); LYMPHOCYTES 29.7 % (15-50); MCHC 32.5 g/dL (31.0-37.0); MCV 95.3 fL (80.0-100.0); MEAN PLATELET VOLUME 10.2 fL (7.4-10.4); NEUTROPHILS 55.1 % (40-80); PLATELET COUNT 201 10x3/uL (130-400); RBC 4.29 10x6/uL (4.20-6.10); RDW 15.5 % (11.5-14.5); WBC 8.2 10x3/uL (4.8-10.8)
[2018-04-03 06:01] LABS: CALC OSMOLALITY 285 mosm/kg (275-300); CALCIUM 8.7 mg/dL (8.5-10.1); CARBON DIOXIDE 23.4 mmol/L (21.0-32.0); CHLORIDE - SERUM 105 mmol/L (98-107); CKMB 4.8 U/L (0.0-3.6); CREATINE KINASE 307 UL (21-232); CREATININE - SERUM 1.8 mg/dL (0.6-1.3); GLUCOSE 151 mg/dL (74-106); POTASSIUM - SERUM 4.2 mmol/L (3.5-5.1); PRO BNP 6752 pg/mL (0-125); SODIUM 140 mmol/L (136-145); TROPONIN-I 0.033 ng/mL (0.000-0.060); UREA NITROGEN 25 mg/dL (7-18); eGFR NON AFRICAN AMERICAN 40 mL/min (90-120)
--- NOTE | 2018-04-03 08:40 | NUR ---
PT SOB STATED TO PT HE WOULD BENEFIT FROM WEARING OXYGEN. PT REFUSED.
[2018-04-03 09:18] VITALS: BP 158/109
--- NOTE | 2018-04-03 09:50 | NUR ---
NEW BATTERIES PLACED IN TELEMTRY MONITOR. NO TELEMETRY POUCHES AVAILABLE.
--- NOTE | 2018-04-03 10:00 | NUR ---
PT UP WALKING HALLWAY.
--- NOTE | 2018-04-03 10:11 | NUR ---
US DONE AT BS. LETTY NEEDS AT THIS TIME. WILL MONITOR.
--- NOTE | 2018-04-03 11:12 | NUR ---
GLUCOMETER SAYS PT'S BS IS 527. STAT GLUCOSE FROM LAB ORDERED.
--- NOTE | 2018-04-03 12:57 | NUR ---
SABINE ON STAT GLUCOSE FROM LAB. CALLED LAB AND THEY STATED SOMEONE IS COMING.
[2018-04-03 14:22] VITALS: BP 151/99
--- NOTE | 2018-04-03 18:33 | NUR ---
PT AWARE THAT TELEMETRY IS NEEDED TO MONITOR HIS HEART AND STILL DOES NOT WANT TO WEAR TELEMETRY. TELEMTRY BLANCA'Kemal.
[2018-04-03 20:30] VITALS: BP 124/94
--- NOTE | 2018-04-03 23:00 | NUR ---
INITIAL ROUNDS COMPLETED AT 1920 HRS. PT DENIED ANY DISCOMFORT. SITTING IN RECLINER. ASSESSMENT COMPLETED AT 1950 HRS. VSS. IV TO RAC SL. LUNGS DIMINISHED IN BASES BILAT. MOULTON. 2+ PEDAL EDEMA NOTED. PT UP AD KATERIN. PM FSBS 155. 2 UNITS REGULAR INSULIN GIVEN SUB-Q TO UPPER R ARM. PM SNACK SERVED WITH PM MEDS. AMBIEN GIVEN PER REQUEST. IV TO RAC LEAKING. DC'D WITH CATHETER INTACT. ATTEMPTED X2 FOR IV WITHOUT SUCCESS. PT CURRENTLY RESTING WITH EYES CLOSED. RESP EVEN AND REGULAR. SR UP X2, CALL LIGHT WITHIN REACH.
--- NOTE | 2018-04-03 23:21 | NUR ---
NEW IV STARTED #20 TO OUTER R FA WITH ATTEMPT X2 BY Jorge CRAIN RN. PT TOLERATED ACTIVITY WELL. SR UP X2, CALL LIGHT WITHIN REACH.
--- NOTE | 2018-04-04 00:03 | NUR ---
PT RESTING WITH EYES CLOSED. RESP EVEN AND REGULAR. SR UPX2, CALL LIGHT WITHIN REACH.
--- NOTE | 2018-04-04 01:53 | NUR ---
PT RESTING WITH EYES CLOSED. RESP EVEN AND REGULAR. SR UP X2, CALL LIGHT WITHIN REACH.
--- NOTE | 2018-04-04 03:01 | NUR ---
PT RESTING WITH EYES CLOSED. RESP EVEN AND REGULAR. SR UP X2, CALL LIGHT WITHIN REACH.
[2018-04-04 04:30] VITALS: BP 159/102
--- NOTE | 2018-04-04 05:00 | NUR ---
PT RESTING IN BED WITH NO DISTRESS. RESPS EVEN/NONLABORED. CALL LIGHT IN REACH. MONITOR AND CPOC.
[2018-04-04 05:36] LABS: BASOPHILS 0.5 % (0-2); EOSINOPHILS 2.7 % (0-7); HEMATOCRIT 39.9 % (42.0-54.0); HEMOGLOBIN 12.8 g/dL (13.5-17.5); IMMATURE GRANULOCYTES 0.3 % (0-5); LYMPHOCYTES 26.3 % (15-50); MCH 30.8 pg (26.0-34.0); MCHC 32.1 g/dL (31.0-37.0); MCV 95.9 fL (80.0-100.0); MEAN PLATELET VOLUME 10.1 fL (7.4-10.4); MONOCYTES 12.1 % (2-11); NEUTROPHILS 58.1 % (40-80); PLATELET COUNT 215 10x3/uL (130-400); RBC 4.16 10x6/uL (4.20-6.10); RDW 15.4 % (11.5-14.5); WBC 7.4 10x3/uL (4.8-10.8)
[2018-04-04 06:14] LABS: ANION GAP 13.1 mmol/L (8-16); CALCIUM 8.8 mg/dL (8.5-10.1); CREATININE - SERUM 1.8 mg/dL (0.6-1.3); POTASSIUM - SERUM 4.1 mmol/L (3.5-5.1)
--- NOTE | 2018-04-04 06:23 | NUR ---
VSS THROUGHOUT NIGHT. PT DENIED ANY DISCOMFORT. FSBS 016. NO COVERAGE NECESSARY. NEEDS MET; WILL CONTINUE TO MONITOR.
[2018-04-04 10:14] VITALS: BP 145/97
[2018-04-04 12:32] VITALS: Ht 175.3 cm; Wt 120.9 kg
--- NOTE | 2018-04-04 16:53 | NUR ---
ALERT AND ORIENTED X4. UP AMBULATING IN [place] WITH FAMILY. GAIT STEADY. DENIES ANY NEEDS. CONTINUE PLAN OF CARE AND SAFETY PRECAUTIONS.
[2018-04-04 19:55] VITALS: BP 136/94
[2018-04-05 00:11] VITALS: BP 135/77
[2018-04-05 03:50] VITALS: BP 134/89
[2018-04-05 06:50] LABS: ANION GAP 12.9 mmol/L (8-16); CALCIUM 8.9 mg/dL (8.5-10.1); CARBON DIOXIDE 30.3 mmol/L (21.0-32.0); CREATININE - SERUM 2.1 mg/dL (0.6-1.3); POTASSIUM - SERUM 4.2 mmol/L (3.5-5.1)
[2018-04-05 07:06] LABS: BASOPHILS 0.6 % (0-2); EOSINOPHILS 2.3 % (0-7); HEMATOCRIT 41.3 % (42.0-54.0); HEMOGLOBIN 13.3 g/dL (13.5-17.5); IMMATURE GRANULOCYTES 0.3 % (0-5); MCHC 32.2 g/dL (31.0-37.0); MCV 96.3 fL (80.0-100.0); MEAN PLATELET VOLUME 10.3 fL (7.4-10.4); MONOCYTES 12.3 % (2-11); NEUTROPHILS 56.5 % (40-80); PLATELET COUNT 226 10x3/uL (130-400); RBC 4.29 10x6/uL (4.20-6.10); RDW 15.6 % (11.5-14.5)
[2018-04-05 07:07] LABS: WBC 9.7 10x3/uL (4.8-10.8)
--- NOTE | 2018-04-05 10:20 | CN ---
PATIENT NAME:MIGUEL MADDEN MEDICAL RECORD: [id number] : 54 LOCATION:D. D.2129 ADMIT DATE: 04/02/18 ACCOUNT: [id number] CONSULTING PHYSICIAN: LELIA CARDENAS MD REFERRING PHYSICIAN: ADALID MOSS MD DATE OF CONSULTATION: 04/03/2018 CARDIOLOGY CONSULTATION DIAGNOSES: 1. Congestive heart failure, chronic systolic dysfunction. 2. Cardiomyopathy, ischemic. 3. Previous PTCA stent of the left circumflex and RCA. 4. Hypertension. 5. Diabetes. HISTORY OF PRESENT ILLNESS: Mr. Madden presented last year with ischemic heart disease, underwent PTCA stent of his RCA and circumflex. Unfortunately, he had Plavix noncompliance and had acute closure of both territories. He had reopening of these territories with stressing, the compliance of his medication was changed to Effient and has been compliant with that. He just present with fluid overload and shortness of breath. No chest pain or chest discomfort. His ejection fraction last year was 20% range. It is now still in the 20% range. He has responded to the Lasix, breathing feels markedly better today than it did upon admission yesterday. PHYSICAL EXAMINATION: GENERAL APPEARANCE: Well-nourished, well-developed, appears stated age. Level of distress, comfortable. PSYCHIATRIC: Mental status, alert, normal affect. Orientation, oriented to time, place and person. EYES: Lids and conjunctiva, noninjected. No discharge, no pallor. ENT: Lips, teeth, gums, normal dentition. Oropharynx, no cyanosis, no pallor. NECK: Carotid arteries, bilateral normal upstroke, no bruits, no thrills. JUGULAR VEINS: No jugular venous pressure or distention. CERVICAL LYMPH NODES: Nontender, nonenlarged. THYROID: Not enlarged. Nontender. No nodules. LUNGS: Respiratory effort, unlabored. CHEST: Normal curvature. No thoracic deformity. No chest wall tenderness. Percussion, resonant. Auscultation, clear. No wheezes, no rales, no rhonchi. CARDIOVASCULAR: Precordial exam, nondisplaced. No heaves or pericardial thrills. Rate and rhythm, regular. Heart sounds, normal S1, normal S2. No S3, no gallop, no rub. Systolic murmur, not heard. Diastolic murmur, not heard. EXTREMITIES: No cyanosis, no edema. Peripheral pulses, full and equal in all extremities, except as noted. No bruits appreciated. ABDOMEN: Soft, nondistended. Normal aorta. No bruit. Nontender. No masses. Liver, nontender, no hepatomegaly. Spleen, nontender, no splenomegaly. MUSCULOSKELETAL: No joint tenderness. No joint swelling. No erythema. NEUROLOGICAL: Normal gait, normal strength, normal tone. SKIN: Warm and dry. OVERALL IMPRESSION: Chronic systolic dysfunction with congestive heart failure, fluid overload. At this time, the only treatment will be diuretic therapy. He has improved so much, I do not think inotrope therapy is needed at this time. CONSULT REPORT [id number] MIGUEL MADDEN TRANSINT:[id number] Voice Confirmation ID: [id number] DOCUMENT ID: [id number] LELIA CARDENAS MD at 1020 CC: [id number] DICTATION DATE: 04/03/18 1108 INTERIOR WIRER: 04/03/18 1142 ADM IN [facility] [id number] [place] [address]
--- NOTE | 2018-04-05 10:23 | EC ---
PATIENT:MIGUEL CLEMONS DATE OF SERVICE: 04/02/18 SEX: M MEDICAL RECORD: [id number] DATE OF : [birth year] LOCATION:D.M2 D.212 AGE OF PATIENT: 67 ADMISSION DATE: 04/02/18 REFERRING PHYSICIAN: INTERPRETING PHYSICIAN: LELIA FLORENTINO MD ECHOCARDIOGRAM REPORT ECHO CHARGES 4 ECHO COMPLETE Date: 04/03/18 CLINICAL DIAGNOSIS: CHF ECHOCARDIOGRAPHIC MEASUREMENTS (adult normal given) AC root (d.<3.7cm) 3.4 cm LV Septum d (<1.2 cm> 1.1 cm Valve Excursion 1.3 cm LV Septum (systole) 1.3 cm Left Atria (s.<4.0cm> 3.9 cm LVPW d(<1.2cm) 1.0 cm RV (d.<2.3cm) 4.4 cm LVPW (sytole) 1.1 cm LV diastole(<5.6CM) 6.0 cm MV E-F(>70mm/sec) cm LV systole 5.4 cm LVOT Diameter 2.1 cm MV exc.(>10mm) cm Est.ejection fraction (50-75%) % DOPPLER: LVIT cm/sec A 35 cm/sec E 83 cm/sec LA cm/sec RVSP 15.2 mmHg LVOT 70 cm/sec AOP1/2T m/s Asc. Ao 107 cm/sec RVOT 53 cm/sec RA cm/sec PA 59 cm/sec AV Gradient Peak 4.6 mmHg AV Mean 2.6 mmHg AV Area 1.9 cm MV Gradient Peak 4.5 mmHg MV Mean 1.8 mmHg MV Area cm COMMENTS: Line Pilot: Junior [facility] Flexographic Printing Press Operator: 1 Dr. Florentino TAPE# PACS Pericardial Effusion N DATE OF SERVICE: 04/03/2018 PROCEDURE: Echocardiogram. FINDINGS: 1. Left ventricular chamber size is dilated. Left ventricular systolic function is markedly reduced, overall ejection fraction 20%. 2. Left atrium, right atrium, and right ventricle chamber sizes are upper limits of normal. 3. Valvular structures have normal structure and motion. ECHOCARDIOGRAM REPORT [id number] MIGUEL CLEMONS 4. Doppler interrogation only reveals trace mitral regurgitation, trace tricuspid regurgitation, no other valvular insufficiency or stenosis. Pulmonary systolic pressure is estimated at 15 mmHg. 5. No evidence of pericardial effusion or left ventricular thrombus. TRANSINT:[id number] Voice Confirmation ID: [id number] DOCUMENT ID: [id number] LELIA FLORENTINO MD at 1023 CC: [id number] DICTATION DATE: 04/03/18 1114 BOMB SQUAD COMMANDER: 04/03/18 1153 ADM IN [facility] [address] [place] [address]
[2018-04-05] MEDS ORDERED: LASIX40 MG PO (13:02)
[2018-04-05] MEDS ORDERED: ALDACTONE50 MG PO (13:04)
--- NOTE | 2018-04-05 13:38 | MORECARE ---
CASE MANAGEMENT DISCHARGE SUMMARY PATIENT: MIGUEL CLEMONS UNIT: [id number] ADM DATE: 04/02/18 AGE: 67 : 54 SEX: M ROOM/BED: D.2960 AUTHOR: MELISSADOC PHYSICIAN: REFERRING PHYSICIAN: ADALID MOSS MD DATE OF SERVICE: 04/05/18 Discharge Plan Patient Name: MIGUEL CLEMONS Facility: [facility]:[place] : 1950 Planned Disposition: Home Anticipated Discharge Date: 04/05/18 Discharge Date: Expected LOS: 3 Initial Reviewer: [email or web address] Initial Review Date: 04/02/2018 Generated: 04/05/18 2:37 pm Comments DCP- Discharge Planning Updated by [email or web address]: Johny Hendrickson on 04/05/18 12:[address] Patient Name: MIGUEL CLEMONS Encounter No: [id number] : 1950 Primary Insurance: MEDICARE A & B Anticipated DC Date: 04-05-2018 Planned Disposition: Home DCP follow-up note: CM MET WITH PT IN ROOM TO DISCUSS DISCHARGE NEEDS AND PLANNING. CM DISCUSSED AVAILABILITY OF HOME HEALTH, REHAB SERVICES AND MEDICAL EQUIPMENT. PT DENIES DISCHARGE NEEDS. SPOUSE TO TRANSPORT HOME AT DISCHARGE. IMPORTANT MESSAGE FROM MEDICARE PROVIDED AND EXPLAINED. CHELSEA Dhaliwal DCP- Discharge Planning Updated by [email or web address]: Aminata Cordero on 04/02/18 3:[address] Patient Name: MIGUEL CLEMONS Admission Status: ER Accout number: [id number] Admission Date: 04-02-2018 : 1950 Admission Diagnosis: Attending: ADALID MOSS Current LOS: 1 Anticipated DC Date: 04-04-2018 Planned Disposition: Home Primary Insurance: MEDICARE A & B Discharge Planning Comments: CM met with patient, his friend Rona, and his niece to complete initial dc planning assessment. CM educated patient on the CM role and verbal consent given by patient to complete assessment. Patient lives at home with his friend Rona. He reports he has [facility] services as well. At discharge patient plans to return home and feels this is a safe discharge. Patient denied known discharge needs at this time. CM will continue to follow and will assist as needed with dc plans/needs. Technician'S Helper: Aminata Cordero RN, [facility] DCPIA - Discharge Planning Initial Assessment Updated by [email or web address]: Aminata Cordero on 04/02/18 4:57 pm * Is the patient Alert and Oriented? Yes * How many steps to enter\exit or inside your home? 11 * PCP Cindy Hare - [facility] * Preadmission Environment Home with Family * ADLs Independent * Equipment None * List name and contact numbers for known caregivers / representatives who currently or will assist patient after discharge: Rona Lau - live in friend - [phone] Dale marion - [phone] Cordelia Fernandez - jt - [phone] * Verbal permission to speak to the caregivers and representatives has been obtained from the patient. Yes * Community resources currently utilized Home Health * Please name any agencies selected above. [facility] * Additional services required to return to the preadmission environment? No * Can the patient safely return to the preadmission environment? Yes * Has this patient been hospitalized within the prior 30 days at any hospital? No Coverage Notice Reviewer: [id number] - Johny Hendrickson Notice Issued Date-Time: 04/05/2018 12:30 Notice Type: IM Discharge Notice Notice Delivered To: Patient Relationship to Patient: Irs Agent Name: Delivery Method: HAND - Hand Delivered Sherin Days: Prior Verbal Notification: Recipient Understood Notice: Yes Recipient Signature: Yes Med Rec Note Co-signed by Attending: Coverage Notice Comment: Last DP export: 04/02/18 4:02 p Patient Name: MIGUEL CLEMONS Page 50541 at 1338 All edits/amendments must be made on the electronic document DICTATION DATE: 04/05/187 PHYSICIAN IN PRIVATE PRACTICE: SHIVA 04/05/18 1337 RPT#: [id number] DC DATE: STATUS: ADM IN [facility] [address] [place] [address] END OF REPORT
--- NOTE | 2018-04-05 15:32 | NUR ---
ALERT AND ORIENTED X4. SITTING UP IN BED. DISCHARGE INSTRUCTIONS GIVEN VERBALLY AND WRITTEN. DISCHARGE PAPERS SIGNED ON CHART. DC RT FA IV TIP INTACT. ESCORT TO RIDE VIA WHEELCHAIR. REMAINS FREE FROM INJURY.
--- NOTE | 2018-04-05 15:48 | MORECARE ---
CASE MANAGEMENT DISCHARGE SUMMARY PATIENT: MIGUEL CLEMONS UNIT: [id number] ADM DATE: 04/02/18 AGE: 67 : 54 SEX: M ROOM/BED: D.3568 AUTHOR: RICARDO TORRES PHYSICIAN: REFERRING PHYSICIAN: ADALID MOSS MD DATE OF SERVICE: 04/05/18 Discharge Plan Patient Name: MIGUEL CLEMONS Facility: [facility]:[place] : 1950 Planned Disposition: Home with Home Health Anticipated Discharge Date: 04/05/18 Discharge Date: Expected LOS: 3 Initial Reviewer: [email or web address] Initial Review Date: 04/02/2018 Generated: 04/05/18 4:48 pm Comments DCP- Discharge Planning Updated by [id number]: Johny Hendrickson on 04/05/18 2:[address] Patient Name: MIGUEL CLEMONS Admission Status: ER Accout number: [id number] Admission Date: 04-02-2018 : 1950 Admission Diagnosis: Attending: ADALID MOSS Current LOS: 3 Anticipated DC Date: 04-05-2018 Planned Disposition: Home with Home Health Primary Insurance: MEDICARE A & B PLANNED EXTERNAL PROVIDER: [facility] Discharge Planning Comments: CM SPOKE TO PT IN [facility], PT REPORTS HE WENT OUTSIDE FOR "FRESH AIR" AND IS BACK AND WAITING ON DISCHARGE. PT REPORTS HE HAS HOME HEALTH WITH [facility]. PT HAS NOT CALLED THEM TO LET THEM KNOW HE WILL BE GOING HOME. PT WOULD LIKE HOME HEALTH RESUMPTION. CM CALLED [facility], , SPOKE TO WILLIAM WHO VERIFIED PT IS ACTIVE AND ON HOSPITAL HOLD. WILLIAM PLACED PT BACK ON SCHEDULE FOR HOME HEALTH RESUMPTION. CM FAXED DISCHARGE INFORMATION TO [facility] AT [phone]. PT NOTIFIED WHO DENIES FURHTER NEEDS. V BELT MOLD ASSEMBLER AND CURER NURSE NOTIFIED. Dealmaker: Johny Hendrickson DCP- Discharge Planning Updated by [id number]: Johny Hendrickson on 04/05/18 12:[address] Patient Name: MIGUEL CLEMONS Encounter No: [id number] : 1950 Primary Insurance: MEDICARE A & B Anticipated DC Date: 04-05-2018 Planned Disposition: Home DCP follow-up note: CM MET WITH PT IN ROOM TO DISCUSS DISCHARGE NEEDS AND PLANNING. CM DISCUSSED AVAILABILITY OF HOME HEALTH, REHAB SERVICES AND MEDICAL EQUIPMENT. PT DENIES DISCHARGE NEEDS. SPOUSE TO TRANSPORT HOME AT DISCHARGE. IMPORTANT MESSAGE FROM MEDICARE PROVIDED AND EXPLAINED. Johny Hendrickson, CASE MANAGEMENT DCP- Discharge Planning Updated by [email or web address]: Aminata Cordero on 04/02/18 3:[address] Patient Name: MIGUEL CLEMONS Admission Status: ER Accout number: [id number] Admission Date: 04-02-2018 : 1950 Admission Diagnosis: Attending: ADALID MOSS Current LOS: 1 Anticipated DC Date: 04-04-2018 Planned Disposition: Home Primary Insurance: MEDICARE A & B Discharge Planning Comments: CM met with patient, his friend Rona, and his niece to complete initial dc planning assessment. CM educated patient on the CM role and verbal consent given by patient to complete assessment. Patient lives at home with his friend Rona. He reports he has [facility] services as well. At discharge patient plans to return home and feels this is a safe discharge. Patient denied known discharge needs at this time. CM will continue to follow and will assist as needed with dc plans/needs. Dealmaker: Aminata Cordero RN, [facility] DCPIA - Discharge Planning Initial Assessment Updated by [email or web address]: Aminata Cordero on 04/02/18 4:57 pm * Is the patient Alert and Oriented? Yes * How many steps to enter\\exit or inside your home? 11 * PCP Cindy H[facility] - [facility] * Preadmission Environment Home with Family * ADLs Independent * Equipment None * List name and contact numbers for known caregivers / representatives who currently or will assist patient after discharge: Rona Lau - live in friend - [phone] Dale Fernández niece - [phone] Cordelia Fernandez - son - [phone] * Verbal permission to speak to the caregivers and representatives has been obtained from the patient. Yes * Community resources currently utilized Home Health * Please name any agencies selected above. [facility] * Additional services required to return to the preadmission environment? No * Can the patient safely return to the preadmission environment? Yes * Has this patient been hospitalized within the prior 30 days at any hospital? No External Providers External Provider: [facility] Next Contact Date: 04/05/2018 Service Request Date: Service Type: Resolution: Reviewer: Comments: Coverage Notice Reviewer: [id number] - Johny Hendrickson Notice Issued Date-Time: 04/05/2018 12:30 Notice Type: IM Discharge Notice Notice Delivered To: Patient Relationship to Patient: National Accounts Sales Name: Delivery Method: HAND - Hand Delivered Sherin Days: Prior Verbal Notification: Recipient Understood Notice: Yes Recipient Signature: Yes Med Rec Note Co-signed by Attending: Coverage Notice Comment: Last DP export: 04/05/18 12:38 p Patient Name: MIGUEL CLEMONS Page 37867 at 1548 All edits/amendments must be made on the electronic document DICTATION DATE: 04/05/[address] STENOGRAPHER: SHIVA 04/05/18 1548 RPT#: [id number] DC DATE: STATUS: ADM IN [facility] [address] [place] [address] END OF REPORT
== END 2018-04-05 16:29 | disposition home health service (06) | DRG 291 ==
LOC: D.ER 06:35 → OBSVTIME 08:21 → D.EDHOLD 08:21 → D.M2 13:42
PROVIDERS: Family Medicine; ADMIT Internal Medicine Nephrology
DX: I13.0 Hypertensive heart and chronic kidney disease with heart failure and stage 1 through stage 4 chronic kidney disease, or unspecified chronic kidney disease (principal); J96.01 Acute respiratory failure with hypoxia; I50.23 Acute on chronic systolic (congestive) heart failure; N18.3 Chronic kidney disease, stage 3 (moderate); E11.22 Type 2 diabetes mellitus with diabetic chronic kidney disease; I25.5 Ischemic cardiomyopathy; I25.10 Atherosclerotic heart disease of native coronary artery without angina pectoris; E78.5 Hyperlipidemia, unspecified; E11.9 Type 2 diabetes mellitus without complications; N40.0 Benign prostatic hyperplasia without lower urinary tract symptoms; D64.9 Anemia, unspecified; F32.9 Major depressive disorder, single episode, unspecified; K21.9 Gastro-esophageal reflux disease without esophagitis; I34.0 Nonrheumatic mitral (valve) insufficiency

== ENCOUNTER → 2018-04-18 12:59 | Outpatient (CLI) | payer MEDICARE ==
[2018-04-04 12:32] VITALS: BMI 39.1
[~2018-04-18 12:59] MED LIST changes: +ALDACTONE50 MG PO; +COREG12.5 MG PO
[2018-04-18 13:40] LABS: ALBUMIN 2.9 g/dL (3.4-5.0); ANION GAP 13.8 mmol/L (8-16); BILIRUBIN - TOTAL 0.95 mg/dL (0.2-1.3); CALCIUM 8.5 mg/dL (8.5-10.1); CREATININE - SERUM 2.3 mg/dL (0.6-1.3); POTASSIUM - SERUM 4.8 mmol/L (3.5-5.1)
== END | disposition home or self-care (01) ==
LOC: D.LAB 12:59
DX: R94.5 Abnormal results of liver function studies (principal)

== ENCOUNTER 2018-05-22 05:37 | Inpatient (IN) | payer MEDICARE ==
[2018-05-22] VITALS (7 sets, daily range): BP systolic 114–138; BP diastolic 68–89; BMI 40.2
[~2018-05-22] VITALS: Ht 175.3 cm; Wt 123.4 kg
--- NOTE | ~2018-05-22 | DS ---
PATIENT:MIGUEL MADDEN :[birth year] MEDICAL RECORD: [id number] DISCHARGE SUMMARY ADMISSION DATE: 05/22/18 DISCHARGE DATE: 05/23/18 DISCHARGE DIAGNOSES: 1. Congestive heart failure, chronic systolic dysfunction. 2. Cardiomyopathy. 3. Hyperlipidemia. 4. Coronary artery disease. 5. Noninsulin-dependent diabetes. 6. Hypertension. HOSPITAL COURSE: Mr. Madden presents with heart failure symptomatology, found to be in a fluid overloaded state, received IV Lasix as well as dobutamine. His heart failure symptomatology cleared rapidly, discharged home. Continue his current medications, follow up with [facility] in 1 month. TRANSINT:[id number] Voice Confirmation ID: [id number] DOCUMENT ID: [id number] LELIA CARDENAS MD CC: [id number] DICTATION DATE: 05/23/18 1355 SECURITIES UNDERWRITER: 05/24/18 0340 DIS IN 05/23/18 [place] [id number] [place] [id number]
[2018-05-22] MEDS ORDERED: BICALUTAMIDE (05:50)
[2018-05-22] MEDS ORDERED: OMEPRAZOLE40 MG PO (05:50)
[2018-05-22] MEDS ORDERED: PRAVACHOL40 MG PO (05:51)
[2018-05-22] MEDS ORDERED: ZALEPLON (05:51)
--- NOTE | 2018-05-22 06:27 | NUR ---
PT PROVIDED URINAL PER REQUEST.
[2018-05-22 06:43] LABS: BASOPHILS 0.5 % (0-2); EOSINOPHILS 2.4 % (0-7); HEMATOCRIT 40.4 % (42.0-54.0); HEMOGLOBIN 13.1 g/dL (13.5-17.5); IMMATURE GRANULOCYTES 0.5 % (0-5); LYMPHOCYTES 27.4 % (15-50); MCH 29.6 pg (26.0-34.0); MCHC 32.4 g/dL (31.0-37.0); MCV 91.4 fL (80.0-100.0); MEAN PLATELET VOLUME 10.4 fL (7.4-10.4); MONOCYTES 9.7 % (2-11); NEUTROPHILS 59.5 % (40-80); PLATELET COUNT 194 10x3/uL (130-400); RBC 4.42 10x6/uL (4.20-6.10); RDW 15.9 % (11.5-14.5); WBC 6.6 10x3/uL (4.8-10.8)
[2018-05-22 06:59] LABS: APTT 31.6 SECONDS (22.8-39.4); INR 1.38 (0.85-1.17); PROTIME 16.4 SECONDS (11.6-15.0)
--- NOTE | 2018-05-22 07:12 | NUR ---
RECIEVED CARE OF PT, VSS, DENIES NEEDS AT THIS TIME
[2018-05-22 07:14] LABS: ALBUMIN 2.9 g/dL (3.4-5.0); ALKALINE PHOSPHATASE 218 U/L (46-116); ALT (SGPT) 17 U/L (10-68); BILIRUBIN - TOTAL 1.26 mg/dL (0.2-1.3); CALC OSMOLALITY 292 mosm/kg (275-300); CALCIUM 8.8 mg/dL (8.5-10.1); CARBON DIOXIDE 20.9 mmol/L (21.0-32.0); CHLORIDE - SERUM 104 mmol/L (98-107); CREATININE - SERUM 2.5 mg/dL (0.6-1.3); GLUCOSE 182 mg/dL (74-106); POTASSIUM - SERUM 4.4 mmol/L (3.5-5.1); PROTEIN - SERUM 8.6 g/dL (6.4-8.2); SODIUM 140 mmol/L (136-145); UREA NITROGEN 37 mg/dL (7-18); eGFR NON AFRICAN AMERICAN 28 mL/min (90-120)
[2018-05-22 07:17] LABS: CKMB 2.2 U/L (0.0-3.6); CREATINE KINASE 155 UL (21-232); PRO BNP 7068 pg/mL (0-125)
[2018-05-22 07:20] LABS: TROPONIN-I 0.017 ng/mL (0.000-0.060)
--- NOTE | 2018-05-22 08:35 | NUR ---
RECIEVED REPORT FROM ER.
--- NOTE | 2018-05-22 08:39 | NUR ---
RECIEVED PT FROM ER.
--- NOTE | 2018-05-22 09:55 | NUR ---
ASSESSMENT COMPLETE PT AAOX4 RESP UNLABORED NONPRODUCTIVE COUGH 3+ EDEMA NOTED TO BLEs SALINE LOCK INTACT TO LAC WITH OCCLUSSIVE DRSG SITE FREE OF REDNESS OR EDEMA TELEMETRY SHOWS SR W/1ST DEGREE BLOCK W/BBB RATE 87
--- NOTE | 2018-05-22 11:14 | NUR ---
D/C TELEMTRY. PT IS NOT KEEPING IT ON, HAS LONG HISTORY OF DOING THIS AT EVERY VISIT. PT HAS BEEN HERE SEVERAL TIMES.
--- NOTE | 2018-05-22 15:58 | MORECARE ---
CASE MANAGEMENT DISCHARGE SUMMARY PATIENT: MIGUEL CLEMONS UNIT: [id number] ADM DATE: 05/22/18 AGE: 67 : [birth year] SEX: M ROOM/BED: D.2136 AUTHOR: RICARDO TORRES PHYSICIAN: REFERRING PHYSICIAN: LELIA CARDENAS MD DATE OF SERVICE: 05/22/18 Discharge Plan Patient Name: MIGUEL CLEMONS [facility] : 1950 Planned Disposition: Anticipated Discharge Date: Discharge Date: Expected LOS: Initial Reviewer: [email or web address] Initial Review Date: 05/22/2018 Generated: 05/22/18 4:58 pm Patient Name: MIGUEL CLEMONS Page 99645 at 1558 All edits/amendments must be made on the electronic document DICTATION DATE: 05/22/181556 SENIOR DATA ARCHITECT: SHIVA 05/22/181556 RPT#: [id number] DC DATE: STATUS: ADM IN [facility] [address] [place] [address] END OF REPORT
--- NOTE | 2018-05-22 18:19 | NUR ---
PT SITTING IN RECLINER. NO CONCERNS OR COMPLAINTS VOICED AT THIS TIME. O2 IN PLACE. CL IN REACH.
--- NOTE | 2018-05-22 19:34 | NUR ---
EVENING ROUNDS COMPLETED. REPORT RECEIVED. PT SITTING UP IN BEDSIDE CHAIR WITH EYES OPEN, RR EVEN AND UNLABORED. DOBUTAMINE INFUSING THROUGH LEFT UPPER ARM PIV ORDERED. NO S/S OF DISTRESS NOTED. INTRODUCED SELF TO PT. PT DENIES FURTHER NEEDS AT THIS TIME. CALL LIGHT IN REACH. WILL CTM.
--- NOTE | 2018-05-23 02:35 | NUR ---
I have reviewed this patient and I concur with the Shift Assessment completed by the Licensed Practical Nurse today this shift.
[2018-05-23 03:50] VITALS: BP 128/65
--- NOTE | 2018-05-23 05:08 | NUR ---
PT SITTING UP IN BED WITH EYES OPEN, RR EVEN AND UNLABORED. DOBUTAMINE DRIP INFUSING ORDERED THROUGH LEFT AC PIV. BED IN LOW POSITION. CALL LIGHT IN REACH. WILL CTM.
--- NOTE | 2018-05-23 07:44 | NUR ---
REPORT RECEIVED. WILL CONTINUE WITH POC. PT CURRENTLY SITTING UP IN CHAIR. CALL LIGHT W/I REACH. PT IS AAO AND UP AD KATERIN. RR EVEN AND UNLABORED ON RA. DOBUTAMINE INFUSING @17.4ML/HR VIA L.UPPER ARM PIV. PT DENIES ANY NEEDS. NO S/S OF DISTRESS NOTED. WILL CTM.
[2018-05-23 08:28] VITALS: BP 130/88
--- NOTE | 2018-05-23 10:54 | HP ---
PATIENT: MIGUEL MADDEN MEDICAL RECORD: [id number] ACCOUNT: [id number] LOCATION:[address] : [birth year] ADMISSION DATE: 05/22/18 PCP: MANNY HYMAN [facility] HISTORY AND PHYSICAL EXAMINATION DIAGNOSES: 1. Congestive heart failure, chronic systolic dysfunction. 2. Ischemic cardiomyopathy. 3. Coronary artery disease. 4. Previous myocardial infarction. 5. Shortness of breath and dyspnea on exertion. 6. Hypertension. 7. Hyperlipidemia. 8. Noninsulin-dependent diabetes. HISTORY: Mr. Madden presents with shortness of breath and dyspnea on exertion. No chest discomfort. His cardiac history started in January when he presented with a myocardial infarction. He underwent PTCA and stent, but did not take his Plavix. He had acute closure, recurrent myocardial infarction, and repeat PTCA and stent. Since then, he has been compliant with his Effient. He does have an ischemic cardiomyopathy with ejection fraction 20%. He now presents with fluid overload and congestive heart failure symptomatology from his chronic systolic dysfunction. He has responded to inotropic therapy as well as Lasix in the past. PHYSICAL EXAMINATION: GENERAL APPEARANCE: Well-nourished, well-developed, appears stated age. Level of distress, comfortable. PSYCHIATRIC: Mental status, alert, normal affect. Orientation, oriented to time, place and person. EYES: Lids and conjunctiva, noninjected. No discharge, no pallor. ENT: Lips, teeth, gums, normal dentition. Oropharynx, no cyanosis, no pallor. NECK: Carotid arteries, bilateral normal upstroke, no bruits, no thrills. JUGULAR VEINS: No jugular venous pressure or distention. CERVICAL LYMPH NODES: Nontender, nonenlarged. THYROID: Not enlarged. Nontender. No nodules. LUNGS: Respiratory effort, unlabored. CHEST: Normal curvature. No thoracic deformity. No chest wall tenderness. Percussion, resonant. Auscultation, clear. No wheezes, no rales, no rhonchi. CARDIOVASCULAR: Precordial exam, nondisplaced. No heaves or pericardial thrills. Rate and rhythm, regular. Heart sounds, normal S1, normal S2. No S3, no gallop, no rub. Systolic murmur, not heard. Diastolic murmur, not heard. EXTREMITIES: No cyanosis, no edema. Peripheral pulses, full and equal in all extremities, except as noted. No bruits appreciated. ABDOMEN: Soft, nondistended. Normal aorta. No bruit. Nontender. No masses. Liver, nontender, no hepatomegaly. Spleen, nontender, no splenomegaly. MUSCULOSKELETAL: No joint tenderness. No joint swelling. No erythema. NEUROLOGICAL: Normal gait, normal strength, normal tone. SKIN: Warm and dry. OVERALL IMPRESSION: Congestive heart failure, chronic systolic dysfunction. We will start dobutamine and Lasix. Hopefully, his pulmonary edema and congestive heart failure symptomatology will clear within the next 24 hours. TRANSINT:[id number] Voice Confirmation ID: [id number] DOCUMENT ID: [id number] HISTORY AND PHYSICAL [id number] MIGUEL MADDEN JEFFREY MD at 1054 CC: [id number] DICTATION DATE: 05/22/18 1216 BEAD CUTTER: 05/22/18 1242 ADM IN [place] [id number] [place] [address]
--- NOTE | 2018-05-23 11:15 | NUR ---
AM MEDICATIONS ADMINISTERED. PT UP WALKING THE FLOOR. DOBUTAMINE INFUSING @17.4ML/HR. PT DENIES ANY NEEDS. WILL CTM.
[2018-05-23 11:40] VITALS: BP 119/81
[2018-05-23 13:50] VITALS: Ht 175.3 cm; Wt 123.4 kg
--- NOTE | 2018-05-23 15:57 | NUR ---
PT DISCHARGED HOME VIA WHEELCHAIR. PIV REMOVED WITH CATHETER TIP FULLY INTACT. PT SIGNED PROPER DISCHARGE INSTRUCTION AND REMOVED ALL VALUABLES FROM THE VIKAS. TELEMETRY REMOVED AND RETURNED.
--- NOTE | 2018-05-23 17:38 | MORECARE ---
CASE MANAGEMENT DISCHARGE SUMMARY PATIENT: MIGUEL CLEMONS UNIT: [id number] ADM DATE: 05/22/18 AGE: 67 : 54 SEX: M ROOM/BED: D.2136 AUTHOR: RICARDO TORRES PHYSICIAN: REFERRING PHYSICIAN: LELIA CARDENAS MD DATE OF SERVICE: 05/23/18 Discharge Plan Patient Name: MIGUEL CLEMONS [facility] [facility] 1950 Planned Disposition: Home with Home Health Anticipated Discharge Date: 05/23/18 Discharge Date: 05/23/2018 Expected LOS: 1 Initial Reviewer: [email or web address] Initial Review Date: 05/22/2018 Generated: 05/23/18 6:38 pm External Providers External Provider: [facility] Next Contact Date: 05/23/2018 Service Request Date: Service Type: Resolution: Reviewer: Comments: Last DP export: 05/22/18 2:58 p Patient Name: MIGUEL CLEMONS Page 49106 at 1738 All edits/amendments must be made on the electronic document DICTATION DATE: 05/23/181737 GRANTS DIRECTOR: SHIVA 05/23/181737 RPT#: [id number] DC DATE:05/23/18 STATUS: DIS IN [facility] [address] [place] [address] END OF REPORT
--- NOTE | 2018-05-23 17:47 | MORECARE ---
CASE MANAGEMENT DISCHARGE SUMMARY PATIENT: MIGUEL CLEMONS UNIT: [id number] ADM DATE: 05/22/18 AGE: 67 : [birth year] SEX: M ROOM/BED: D.2136 AUTHOR: MELISSA,DOC PHYSICIAN: REFERRING PHYSICIAN: LELIA CARDENAS MD DATE OF SERVICE: 05/23/18 Discharge Plan Patient Name: MIGUEL CLEMONS Facility: [facility]:[place] : 1950 Planned Disposition: Home with Home Health Anticipated Discharge Date: 05/23/18 Discharge Date: 05/23/2018 Expected LOS: 1 Initial Reviewer: [email or web address] Initial Review Date: 05/22/2018 Generated: 05/23/18 6:47 pm Comments DCP- Discharge Planning Updated by [email or web address]: Johny Hendrickson on 05/23/18 4:[address] Patient Name: MIGUEL CLEMONS Admission Status: ER Accout number: [id number] Admission Date: 05-22-2018 : 1950 Admission Diagnosis: Attending: LILLY CARDENAS Current LOS: 1 Anticipated DC Date: 05-23-2018 Planned Disposition: Home with Home Health Primary Insurance: MEDICARE A & B PLANNED EXTERNAL PROVIDER: [facility] Discharge Planning Comments: CM MET WITH PT IN ROOM TO DISCUSS DISCHARGE PLANNING AND NEEDS. PT REPORTS LIVING AT HOME INDEPENDENTLY AND ALONE. PT HAS HOME AND PORTABLE OXYGEN FROM [facility]. PT HAS HOME HEALTH WITH [facility]. CM DISCUSSED AVAILABILITY OF HOME HEALTH, REHAB SERVICES AND MEDICAL EQUIPMENT. PT DENIES DISCHARGE NEEDS OTHER THAN [facility]. PT REPORTS HIS SISTER WILL PICK HIM UP FOR DISCHARGE HOME. CM , SPOKE TO GUANAKITO OF [facility], NOTIFIED OF RESUMPTION REQUEST BY PT. CM FAXED DISCHARGE INFORMATION TO [facility] AT [phone]. CHIMNEY BUILDER NURSE NOTIFIED. Selling Manager: Johny Hendrickson DCPIA - Discharge Planning Initial Assessment Updated by [id number]: Johny Hendrickson on 05/23/18 5:41 pm * Is the patient Alert and Oriented? Yes * How many steps to enter\exit or inside your home? 11 * PCP LARY WILLETT, [facility] * Pharmacy [facility] [address] * Preadmission Environment Home Alone * ADLs Independent * Equipment Oxygen * Other Equipment HOME AND PORTABLE OXYGEN [facility] - PROVIDER * List name and contact numbers for known caregivers / representatives who currently or will assist patient after discharge: MARYLOU PRATHER, FRIEND, DAMIEN GARCIA, NIECE, DIA PABON, SON, * Verbal permission to speak to the caregivers and representatives has been obtained from the patient. N/A * Community resources currently utilized Home Health * Please name any agencies selected above. [facility], NURSING ONLY * Additional services required to return to the preadmission environment? No * Can the patient safely return to the preadmission environment? Yes * Has this patient been hospitalized within the prior 30 days at any hospital? No Last DP export: 05/23/18 4:38 p Patient Name: MIGUEL CLEMONS Page 94661 at 1741 All edits/amendments must be made on the electronic document DICTATION DATE: 05/23/181746 GUIDE VISITOR: SHIVA 05/23/181746 RPT#: [id number] DC DATE:05/23/18 STATUS: DIS IN [facility] [address] [place] [address] END OF REPORT
== END 2018-05-23 15:58 | disposition home health service (06) | DRG 293 ==
LOC: D.ER 05:37 → D.EDHOLD 07:50 → D.M2 08:18
PROVIDERS: Family Medicine; ADMIT Internal Medicine Interventional Cardiology; ATTEND Internal Medicine Interventional Cardiology
DX: I11.0 Hypertensive heart disease with heart failure (principal); I50.22 Chronic systolic (congestive) heart failure; I25.5 Ischemic cardiomyopathy; E78.5 Hyperlipidemia, unspecified; I25.10 Atherosclerotic heart disease of native coronary artery without angina pectoris; E11.9 Type 2 diabetes mellitus without complications; F17.210 Nicotine dependence, cigarettes, uncomplicated

== ENCOUNTER → 2018-06-21 10:40 | Outpatient (CLI) | payer MEDICARE ==
[2018-05-23 13:50] VITALS: BMI 40.1
[~2018-06-21 10:40] MED LIST changes: +BICALUTAMIDE; +ZALEPLON
--- NOTE | 2018-06-24 15:12 | EC ---
PATIENT:MIGUEL CLEMNOS DATE OF SERVICE: 06/21/18 SEX: M MEDICAL RECORD: [id number] DATE OF : [birth year] LOCATION:[facility] AGE OF PATIENT: 67 ADMISSION DATE: 06/21/18 REFERRING PHYSICIAN: INTERPRETING PHYSICIAN: LELIA FLORENTINO MD ECHOCARDIOGRAM REPORT ECHO CHARGES 4 ECHO COMPLETE Date: 06/21/18 CLINICAL DIAGNOSIS: CARDIOMYOPATHY ECHOCARDIOGRAPHIC MEASUREMENTS (adult normal given) AC root (d.<3.7cm) 3.6 cm LV Septum d (<1.2 cm> 1.3 cm Valve Excursion 2.1 cm LV Septum (systole) 1.4 cm Left Atria (s.<4.0cm> 3.7 cm LVPW d(<1.2cm) 1.0 cm RV (d.<2.3cm) 4.8 cm LVPW (sytole) 1.1 cm LV diastole(<5.6CM) 6.2 cm MV E-F(>70mm/sec) cm LV systole 5.2 cm LVOT Diameter 2.2 cm MV exc.(>10mm) 1.3 cm Est.ejection fraction (50-75%) % DOPPLER: LVIT cm/sec A 68.0 cm/sec E 80.0 cm/sec LA cm/sec RVSP 15 mmHg LVOT 59 cm/sec AOP1/2T m/s Asc. Ao 85 cm/sec RVOT 49 cm/sec RA cm/sec PA 62 cm/sec AV Gradient Peak 2.87 mmHg AV Mean 1.49 mmHg AV Area 3.1 cm MV Gradient Peak 2.21 mmHg MV Mean 0.97 mmHg MV Area cm COMMENTS: Tool Profiling Machine Set Up Operator: Ambar ADAMS Beef Cattle Farmer: 1 Dr. Florentino TAPE# PACS Pericardial Effusion N DATE OF SERVICE: 06/21/2018 PROCEDURE: Echocardiogram. FINDINGS: 1. Left ventricular chamber size is dilated. Left ventricular systolic function is markedly reduced, overall ejection fraction 25%. 2. Left atrium is within normal limits at 3.7 cm. Right atrium and right ventricular chamber sizes are moderately dilated. 3. Valvular structure have normal structure and motion. ECHOCARDIOGRAM REPORT [id number] MIGUEL CLEMONS 4. Doppler interrogation reveals sjdx-[id number] mitral regurgitation, no other valvular insufficiency or stenosis. Pulmonary systolic pressure is estimated normal at 15 mmHg. 5. No evidence of pericardial effusion or left ventricular thrombus. TRANSINT:[id number] Voice Confirmation ID: [id number] DOCUMENT ID: [id number] LELIA FLORENTINO MD at 1512 CC: [id number] DICTATION DATE: 06/22/18 1125 MANAGER OFFICE: 06/22/18 1230 DEP CLI 06/21/18 [place] [id number] [place] [id number]
== END | disposition home or self-care (01) ==
LOC: D.HCCARDIO 10:40
PROVIDERS: ATTEND Internal Medicine Interventional Cardiology
DX: I42.9 Cardiomyopathy, unspecified (principal)

== ENCOUNTER → 2018-07-18 16:28 | Outpatient (CLI) | payer MEDICARE ==
[2018-05-23 13:50] VITALS: BMI 40.1
[2018-07-18 17:13] LABS: ALBUMIN 3.4 g/dL (3.4-5.0); ANION GAP 12.8 mmol/L (8-16); BILIRUBIN - TOTAL 0.52 mg/dL (0.2-1.3); CALCIUM 9.3 mg/dL (8.5-10.1); CARBON DIOXIDE 25.8 mmol/L (21.0-32.0); CREATININE - SERUM 2.7 mg/dL (0.6-1.3); POTASSIUM - SERUM 4.6 mmol/L (3.5-5.1); PROTEIN - SERUM 8.5 g/dL (6.4-8.2)
== END | disposition home or self-care (01) ==
LOC: D.LAB 16:28
PROVIDERS: ATTEND Nurse Practitioner Family
DX: N18.9 Chronic kidney disease, unspecified (principal)

== ENCOUNTER 2019-07-11 14:25 | Inpatient (IN) | payer MEDICARE ==
[~2019-07-11] VITALS: Ht 175.3 cm; Wt 118.8 kg
[~2019-07-11 14:25] MED LIST changes: +BUMEX2 MG PO; +LISINOPRIL10 MG PO; -ZALEPLON; +ZALEPLON PO
[2019-07-11] MEDS ORDERED: [UNRECOGNIZED DRUG - REMARK] (14:37)
[2019-07-11 15:12] LABS: HEMATOCRIT 33.9 % (42.0-54.0); MCH 30.8 pg (26.0-34.0); MCHC 32.4 g/dL (31.0-37.0); MEAN PLATELET VOLUME 9.9 fL (7.4-10.4); PLATELET COUNT 302 10x3/uL (130-400); RBC 3.57 10x6/uL (4.20-6.10); RDW 13.6 % (11.5-14.5); WBC 33.7 10x3/uL (4.8-10.8)
[2019-07-11 15:28] LABS: ANION GAP 17.7 mmol/L (8-16); CALCIUM 9.8 mg/dL (8.5-10.1); CARBON DIOXIDE 23.8 mmol/L (21.0-32.0); CREATININE - SERUM 2.5 mg/dL (0.6-1.3); POTASSIUM - SERUM 3.5 mmol/L (3.5-5.1)
[2019-07-11 15:30] VITALS: BP 139/75
[2019-07-11 15:34] LABS: LYMPHOCYTES 8 % (15-50); NEUTROPHILS 92 % (40-80); PLATELET ESTIMATE NORMAL
[2019-07-11 15:42] LABS: ALBUMIN 2.5 g/dL (3.4-5.0); BILIRUBIN - TOTAL 0.97 mg/dL (0.2-1.3); PROTEIN - SERUM 8.7 g/dL (6.4-8.2)
[2019-07-11 16:30] VITALS: BP 145/85
[2019-07-11 18:42] VITALS: BP 139/90
[2019-07-11 20:00] VITALS: BP 180/96
[2019-07-11 22:23] VITALS: BP 139/90; BMI 38.7
[2019-07-12] VITALS: BP 136/80
[2019-07-12 04:00] VITALS: BP 116/72
[2019-07-12 05:49] LABS: APTT 34.5 SECONDS (22.8-39.4); INR 1.17 (0.85-1.17); PROTIME 14.9 SECONDS (11.6-15.0)
[2019-07-12 06:11] LABS: ANION GAP 16.4 mmol/L (8-16); BILIRUBIN - TOTAL 1.38 mg/dL (0.2-1.3); CALCIUM 9.2 mg/dL (8.5-10.1); CARBON DIOXIDE 21.1 mmol/L (21.0-32.0); CREATININE - SERUM 2.3 mg/dL (0.6-1.3); MAGNESIUM - SERUM 1.6 mg/dL (1.8-2.4); PHOSPHOROUS 3.8 mg/dL (2.5-4.9); POTASSIUM - SERUM 3.5 mmol/L (3.5-5.1); PROTEIN - SERUM 7.1 g/dL (6.4-8.2); VANCOMYCIN - RANDOM 7.3 ug/mL (10.0-20.0)
[2019-07-12 06:13] LABS: ALBUMIN 1.8 g/dL (3.4-5.0)
[2019-07-12 06:19] LABS: MCH 31.1 pg (26.0-34.0); MCHC 33.3 g/dL (31.0-37.0); MCV 93.2 fL (80.0-100.0); PLATELET COUNT 250 10x3/uL (130-400); RBC 3.22 10x6/uL (4.20-6.10); RDW 13.6 % (11.5-14.5); WBC 30.8 10x3/uL (4.8-10.8)
[2019-07-12 06:44] LABS: LYMPHOCYTES 8 % (15-50); MONOCYTES 1 % (2-11); NEUTROPHILS 88 % (40-80); PLATELET ESTIMATE NORMAL
--- NOTE | 2019-07-12 07:45 | NUR ---
ASSESSMENT PER FLOW SHEET. PATIENT IS WITHOUT DISTRESS.CALL LIGHT IN REACH. NPO FOR SURGERY TODAY.
--- NOTE | 2019-07-12 07:55 | NUR ---
TO OR VIA BED
[2019-07-12 08:54] VITALS: BP 125/88
[2019-07-12 10:14] VITALS: BP 150/88
--- NOTE | 2019-07-12 10:15 | NUR ---
BACK FROM PACU VIA BED. PATIENT IS WITHOUT DISTRESS.AWAKENS INT. DRESSING UNDER RIGHT ARM CDI. TELEMETRY AND SC'D PLACED ON PATIENT.IS TO BEDSIDE,WILL INSTRUCT WHEN PATIENT MORE AWAKE.
--- NOTE | 2019-07-12 16:18 | OP ---
PATIENT NAME: MIGUEL CLEMONS MEDICAL RECORD: [id number] :54 LOCATION:D.MS [id number] ADMISSION DATE:07/11/19 SURGEON: SHELDON ANN MD DATE OF OPERATION: 07/12/2019 PREOPERATIVE DIAGNOSIS: Right axillary abscess, large. POSTOPERATIVE DIAGNOSES: Right axillary abscess, large, with some wound necrosis. PROCEDURE: Excisional debridement of right axilla with drainage of abscess, marsupialization and packing. Dimensions of debridement, including margins, measured 4.2 x 3.9 cm including skin and subcutaneous tissue as well as abscess cavity and some necrotic adipose tissue. OPERATIVE COURSE: The patient was conveyed to the operating room electively on 07/12/2019. General anesthesia was induced by the anesthesia staff. The right axilla was sterilely prepped and draped. Through the use of double curvilinear incisions, I excised the skin and subcutaneous tissue overlying the abscess cavity. Some necrotic adipose tissue was excised in a piecemeal fashion as well. Cultures were obtained. I performed some blunt dissection through the defect loosening up some of the septa and allowing some of the purulence to drain. I irrigated with normal saline and then with hydrogen peroxide. I marsupialized the wound with a running locking 3-0 Vicryl Rapide suture. I then packed the wound with 2-inch Kerlix that was soaked in a Dakin solution. A sterile dressing was applied. The patient was then extubated and conveyed to post-anesthesia care unit. No family members were present. I anticipate that the packing needs to stay in for 3 days and then I will remove the packing. The patient needs to remain on intravenous antibiotics during that period of time. TRANSINT:[id number] Voice Confirmation ID: [id number] DOCUMENT ID: [id number] SHELDON ANN MD at 1618 CC: MÓNICA MARKHAM MD [id number] DICTATION DATE: 07/12/19 0948 HIGH SCHOOL HISTORY TEACHER: 07/12/19 1549 [place] [address]
[2019-07-12 17:28] VITALS: BP 107/72
[2019-07-12 19:58] LABS: BACTERIA MODERATE /hpf (NEGATIVE); BILIRUBIN NEGATIVE (NEGATIVE); GLUCOSE 50 mg/dL (NEGATIVE); KETONE NEGATIVE (NEGATIVE); NITRITE NEGATIVE (NEGATIVE); RED CELLS - URINE 0-5 /hpf (0-5); UROBILINOGEN NORMAL (NORMAL); WHITE CELLS - URINE 0-5 /hpf (NEGATIVE)
[2019-07-12 20:00] VITALS: BP 117/69
--- NOTE | 2019-07-13 03:12 | NUR ---
I have reviewed this patient and I concur with the Shift Assessment completed by the Licensed Practical Nurse today this shift.
[2019-07-13 04:00] VITALS: BP 100/70
[2019-07-13 05:53] LABS: ANION GAP 14.7 mmol/L (8-16); CALCIUM 9.2 mg/dL (8.5-10.1); CARBON DIOXIDE 20.1 mmol/L (21.0-32.0); CREATININE - SERUM 2.3 mg/dL (0.6-1.3); PHOSPHOROUS 3.1 mg/dL (2.5-4.9); POTASSIUM - SERUM 3.8 mmol/L (3.5-5.1); VANCOMYCIN - RANDOM 13.4 ug/mL (10.0-20.0)
[2019-07-13 05:56] LABS: MAGNESIUM - SERUM 2.1 mg/dL (1.8-2.4)
[2019-07-13 06:32] LABS: BASOPHILS 0.1 % (0-2); EOSINOPHILS 0.1 % (0-7); HEMATOCRIT 28.5 % (42.0-54.0); HEMOGLOBIN 9.2 g/dL (13.5-17.5); MCH 30.4 pg (26.0-34.0); MCHC 32.3 g/dL (31.0-37.0); MCV 94.1 fL (80.0-100.0); MEAN PLATELET VOLUME 9.7 fL (7.4-10.4); MONOCYTES 5.3 % (2-11); NEUTROPHILS 88.5 % (40-80); PLATELET COUNT 272 10x3/uL (130-400); RBC 3.03 10x6/uL (4.20-6.10); RDW 13.7 % (11.5-14.5); WBC 26.8 10x3/uL (4.8-10.8)
--- NOTE | 2019-07-13 06:50 | NUR ---
ALERT AND ORIENTED, RESTING IN BED WITH EYES OPEN. C/O PAIN, PAIN MED GIVEN PRIOR TO START OF THIS SHIFT. NO S/S OF ACUTE DISTRESS NOTED. SCDS ON. IV TO RIGHT AC, NS INFUSING @ 75ML/HR. SITE PATENT WITHOUT REDNESS OR SWELLING. UP WITH ASSIST. DRESSING TO RIGHT AUXILLARY, C/D/I. DENIES ANY NEEDS AT THIS TIME. CALL LIGHT IN REACH. WILL CONTINUE TO MONITOR.
[2019-07-13 09:31] VITALS: BP 113/72
[2019-07-13 13:22] VITALS: Ht 175.3 cm; Wt 118.8 kg
[2019-07-13 13:29] VITALS: BP 112/75
[2019-07-13 17:50] VITALS: BP 113/78
--- NOTE | 2019-07-13 18:12 | NUR ---
ALERT AND ORIENTED, RESTING IN BED WITH EYES OPEN. NO C/O PAIN. NO S/S OF ACUTE DISTRESS NOTED. DENIES ANY NEEDS AT THIS TIME. CALL LIGHT IN REACH. WILL CONTINUE TO MONITOR.
[2019-07-13 20:00] VITALS: BP 112/72
--- NOTE | 2019-07-13 20:00 | NUR ---
ALERT SITTING UP IN CHAIR AT BEDSIDE, C/O SWELLING TO RIGHT ARM, IV TO RIGHT AC DC,DUE TO NO BLOOD RETURN AND LEAKING WHEN FLUSHED, WILL RESITE, SEE SHIFT ASSESSMENT, CALL LIGHT IN REACH
[2019-07-14] VITALS: BP 126/89
[2019-07-14 04:00] VITALS: BP 114/74
[2019-07-14 09:28] VITALS: BP 106/74
--- NOTE | 2019-07-14 10:31 | NUR ---
I have reviewed this patient and I concur with the Shift Assessment completed by the Licensed Practical Nurse today this shift.
[2019-07-14 13:01] VITALS: BP 122/80
--- NOTE | 2019-07-14 14:29 | NUR ---
OT NOTE: (AM) PT COMPLETED TOILETING TASK WITH SET UP. PT COMPLETED LUE AROM AXS WITH FUNCTIONAL TASKS FOR INCREASED I. (PM) PT COMPLETED ADL MOB WITH MIN A. PT REQUIRED MIN A FOR SIT TO STAND. PT COMPLETED HAND HYGIENE WITH SET UP. [phone] THANK YOU,ROSALIA SALDIVAR
--- NOTE | 2019-07-14 15:19 | NUR ---
C/O RIGHT ARM PAIN RATING 8/10 ON PAIN SCALE. MEDICATED WITH MORPHINE PER ORDERS. C/L IN REACH AT BEDSIDE.
[2019-07-14 15:45] VITALS: BP 129/84
--- NOTE | 2019-07-14 16:18 | NUR ---
07/12/[address] ANN FOR EXCISIONAL DEBRIDEMENT RIGHT AXILLA. PLAN TO LEAVE PACKING IN UNTIL DR. ANN REMOVES.
[2019-07-14 20:00] VITALS: BP 115/70
--- NOTE | 2019-07-14 20:00 | NUR ---
PATIENT RESTING IN CHAIR WATCHING TV. NO S/S OF ACUTE DISTRESS. NO C/O AT THIS TIME. PATIENT IS ON 2L OF O2 NASAL CANNULA. PATIENT HAS IV IN LEFT HAND, NORMAL SALINE @ 75 ML/HR. IV IS PATENT WITHOUT REDNESS, SWELLING, OR TENDERNESS. TELEMETRY: 94 SINUS, 1ST BBB. PATIENT IS POST OP DAY 2 OF LEFT AXILLARY ABSCESS I&D. DRESSING IS C/D/I. PATIENT AMBULATES TO BATHROOM WITH MINIMAL ASSISTANCE. CALL LIGHT WITHIN REACH. WILL CONTINUE TO MONITOR.
[2019-07-15] VITALS: BP 117/72
--- NOTE | 2019-07-15 03:44 | NUR ---
I have reviewed this patient and I concur with the Shift Assessment completed by the Licensed Practical Nurse today this shift.
[2019-07-15 04:00] VITALS: BP 116/70
--- NOTE | 2019-07-15 08:15 | NUR ---
ALERT AND ORIENTED. LUNGS CLEAR BILATERALLY. HEART SOUNDS S1 AND S2 HEARD IN ALL PATRICK. BOWEL SOUNDS ACTIVE X 4. DRSG TO RIGHT AXCILLA C/D/I. IV TO LEFT HAND PATENT WITHOUT REDNESS. DENIES NEEDS. BED LOW. CALL SIMPSON AND PERSONAL ITEMS IN REACH. WILL CONTINUE TO MONITOR.
[2019-07-15 08:32] VITALS: BP 109/73
--- NOTE | 2019-07-15 09:28 | NUR ---
DRSG TO RIGHT AXCILLA REINFORCED WITH ABD PAD AND MEDIPORE TAPE D/T DRAINAGE.
--- NOTE | 2019-07-15 13:16 | NUR ---
PATIENT IV OCCLUDED TO LEFT HAND. DISCONNECTED FROM FLUIDS. LAB UNABLE TO COLLECT BLOOD FROM PATIENT AND PATIENT STUCK SEVERAL TIMES YESTERDAY FOR IV. DOES NOT WANT TO BE STUCK AGAIN. DR SETH ROMERO.
[2019-07-15 13:21] LABS: HEMATOCRIT 32.7 % (42.0-54.0); HEMOGLOBIN 10.7 g/dL (13.5-17.5); MCH 30.7 pg (26.0-34.0); MCHC 32.7 g/dL (31.0-37.0); MEAN PLATELET VOLUME 9.5 fL (7.4-10.4); PLATELET COUNT 285 10x3/uL (130-400); RBC 3.48 10x6/uL (4.20-6.10); RDW 14.3 % (11.5-14.5); WBC 23.7 10x3/uL (4.8-10.8)
--- NOTE | 2019-07-15 13:33 | NUR ---
SPOKE WITH LANCE PATTERSON WHO STATES WHO STATES TO TALK TO DR ANN AND SEE IT PATIENT OK TO DC. AWARE THAT PATIENT UNABLE TO GET LAB DRAWS OR IV ABX. STATES TO NOTIFY DR ANN AND POSSIBLE DC WITH HOME HEALTH. WAITING CALL BACK FROM DR ANN.
--- NOTE | 2019-07-15 13:57 | NUR ---
SPOKE WITH DR ANN WHO STATES WILL COME PUT CENTRAL LINE IN PATIENT. STATES TO GET 16CM CENTRAL LINE READY. ALSO STATES TO GIVE PATIENT ONE TIME DOSE OF 2MG DILAUDID PO AND STATES WILL RESTART MORPHINE JEWELRY SALESPERSON AFTER PATIENT HAS CENTRAL LINE. STATES WILL ALSO CHANGE PACKING TODAY AFTER STARTING CENTRAL LINE.
[2019-07-15 13:59] LABS: LYMPHOCYTES 5 % (15-50); MONOCYTES 1 % (2-11); NEUTROPHILS 93 % (40-80); PLATELET ESTIMATE NORMAL; PLATELET MORPHOLOGY PLT CLUMPS PRESENT; TOXIC GRANULATION 1+
--- NOTE | 2019-07-15 14:00 | NUR ---
PRN YARELY WASTED IN PYXIS IN ORDER TO GIVE ONE TIME DOSE DILAUDID.
--- NOTE | 2019-07-15 17:38 | NUR ---
WOUND TO RIGHT AXCILLA UNPACKED BY MD IN ROOM. FLUSHED WITH PEROXIDE AND DRESSED WITH GAUZE AND ABD PER MD ORDER IN ROOM.
--- NOTE | 2019-07-15 18:09 | NUR ---
HIDE HOUSE SUPERVISOR SET UP BUT NOT IN USE YET. WAITING CHECK PLACEMENT OF LINE.
--- NOTE | 2019-07-15 18:45 | NUR ---
LINE PLACEMENT OK PER RADIOLOGY. HOOKED TO IV FLUIDS AND METAL NUMERICAL CONTROL PROGRAMMER. EDUCATION PROVIDED ON USE OF METAL NUMERICAL CONTROL PROGRAMMER. DEMONSTRATED UNDERSTANDING.
[2019-07-15 20:00] VITALS: BP 133/82
[2019-07-16] VITALS: BP 114/73
[2019-07-16 04:00] VITALS: BP 116/78
--- NOTE | 2019-07-16 07:02 | NUR ---
ALERT AND ORIENTED. LUNGS CLEAR BILATERALLY. HEART SOUNDS S1 AND S2 HEARD IN ALL PATRICK. BOWEL SOUNDS ACTIVE X 4. DRSG TO RIGHT AXILLARY INTACT. RIGHT IJ PATENT WITHOUT REDNESS OR SWELLING. DENIES NEEDS. BED LOW. CALL SIMPSON AND PERSONAL ITEMS IN REACH. WILL CONTINUE TO MONITOR.
[2019-07-16 07:09] LABS: BASOPHILS 0.1 % (0-2); EOSINOPHILS 0.9 % (0-7); HEMATOCRIT 26.8 % (42.0-54.0); HEMOGLOBIN 8.8 g/dL (13.5-17.5); IMMATURE GRANULOCYTES 3.7 % (0-5); LYMPHOCYTES 6.9 % (15-50); MCH 30.9 pg (26.0-34.0); MCHC 32.8 g/dL (31.0-37.0); MEAN PLATELET VOLUME 9.5 fL (7.4-10.4); MONOCYTES 6.8 % (2-11); NEUTROPHILS 81.6 % (40-80); PLATELET COUNT 272 10x3/uL (130-400); RBC 2.85 10x6/uL (4.20-6.10); RDW 13.9 % (11.5-14.5); WBC 17.4 10x3/uL (4.8-10.8)
[2019-07-16 07:25] LABS: ALBUMIN 1.8 g/dL (3.4-5.0); ALKALINE PHOSPHATASE 171 U/L (30-120); ALT (SGPT) 16 U/L (10-68); CALC OSMOLALITY 278 mosm/kg (275-300); CALCIUM 8.8 mg/dL (8.5-10.1); CARBON DIOXIDE 21.3 mmol/L (21.0-32.0); CHLORIDE - SERUM 101 mmol/L (98-107); CREATININE - SERUM 2.1 mg/dL (0.6-1.3); GLUCOSE 254 mg/dL (74-106); MAGNESIUM - SERUM 2.1 mg/dL (1.8-2.4); POTASSIUM - SERUM 3.9 mmol/L (3.5-5.1); PROTEIN - SERUM 7.2 g/dL (6.4-8.2); SODIUM 133 mmol/L (136-145); TROPONIN-I < 0.017 ng/mL (0.000-0.060); UREA NITROGEN 24 mg/dL (7-18); VANCOMYCIN - RANDOM 20.3 ug/mL (10.0-20.0); eGFR NON AFRICAN AMERICAN 34 mL/min (90-120)
[2019-07-16 07:38] VITALS: BP 125/70
--- NOTE | 2019-07-16 10:15 | NUR ---
SITTING UP IN CHAIR. SECOND BREAKFAST TRAY ORDERED PER REQUEST D/T FIRST TRAY COLD.
[2019-07-16 13:03] VITALS: BP 127/73
[2019-07-16 15:36] LABS: % SATURATION 22 % (15-55); IRON 40 ug/dl (35-150); TOTAL IRON BIND CAPACITY 181 ug/dl (260-445); UNSAT IRON BIND CAPACITY 141 ug/dl (150-375)
--- NOTE | 2019-07-16 16:00 | NUR ---
EDUCATION PROVIDED ON NEED FOR STOOL SAMPLE. HAT IN TOILET.
[2019-07-16 17:32] VITALS: BP 134/87
[2019-07-16 20:00] VITALS: BP 142/71
[2019-07-17] VITALS: BP 121/76
[2019-07-17 04:00] VITALS: BP 139/78
[2019-07-17 05:50] LABS: BASOPHILS 0.2 % (0-2); EOSINOPHILS 0.9 % (0-7); HEMATOCRIT 27.4 % (42.0-54.0); HEMOGLOBIN 8.7 g/dL (13.5-17.5); IMMATURE GRANULOCYTES 3.1 % (0-5); MCH 30.1 pg (26.0-34.0); MCHC 31.8 g/dL (31.0-37.0); MCV 94.8 fL (80.0-100.0); MEAN PLATELET VOLUME 9.8 fL (7.4-10.4); MONOCYTES 6.9 % (2-11); NEUTROPHILS 80.9 % (40-80); PLATELET COUNT 285 10x3/uL (130-400); RBC 2.89 10x6/uL (4.20-6.10); WBC 15.3 10x3/uL (4.8-10.8)
[2019-07-17 06:05] LABS: ANION GAP 17.4 mmol/L (8-16); CALCIUM 8.3 mg/dL (8.5-10.1); CARBON DIOXIDE 19.9 mmol/L (21.0-32.0); CREATININE - SERUM 1.8 mg/dL (0.6-1.3); PHOSPHOROUS 3.9 mg/dL (2.5-4.9); POTASSIUM - SERUM 4.3 mmol/L (3.5-5.1)
--- NOTE | 2019-07-17 06:08 | NUR ---
I have reviewed this patient and I concur with the Shift Assessment completed by the Licensed Practical Nurse today this shift.
[2019-07-17 07:48] VITALS: BP 151/95
--- NOTE | 2019-07-17 10:00 | NUR ---
ASSESSMENT PER FLOW SHEET. PATIENT IS WITHOUT DISTRESS.DRESSING CHANGE TO RIGHT AXCILLA ORDERED. LARGE AMOUNTS OF YELLOW/GREEN DRAINAGE NOTED COMING FROM WOUND. MONITOR FOR NEEDS
--- NOTE | 2019-07-17 12:13 | NUR ---
OT NOTE: APPEARS MORE CONFUSED TODAY.. DID NOT KNOW THAT HE HAD BEEN WEARING 02 HOWEVER, WAS ON 5 L.. UNSURE WHEN PT HAD REMOVED IT. ABLE TO GET FROM CHAIR TO BATHROOM WITHOUT ASSIST, HOWEVER, UNSTEADY. SIMPLE GROOMING WITH SETUP; ABLE TO AMB GREATER THAN 150 FT WITH USE OF WALKER.. PT MORE SAFE WITH WALKER USAGE. PT WANTING TO GO HOME.. AROM EXS.. SEAN SPRAGUE, OTR/L [phone]
[2019-07-17 12:27] VITALS: BP 134/83
--- NOTE | 2019-07-17 13:29 | OP ---
PATIENT NAME: MIGUEL CLEMONS MEDICAL RECORD: [id number] :54 LOCATION:D.MS [id number] ADMISSION DATE:07/11/19 SURGEON: VISHAL ANN MD DATE OF OPERATION: 07/15/2019 PREOPERATIVE DIAGNOSES: 1. Axillary abscess. 2. Leukocytosis. 3. Lack of peripheral IV access, in need of IV access for IV antibiotics. POSTOPERATIVE DIAGNOSES: 1. Axillary abscess. 2. Leukocytosis. 3. Lack of peripheral IV access, in need of IV access for IV antibiotics. PROCEDURE: Right internal jugular triple lumen central venous catheter placement. SURGEON: Vishal Ann MD REPRODUCTION PRODUCTION MANAGER: None. BLOOD LOSS: Minimal. ANESTHESIA: Local. COMPLICATIONS: None. The risks, possible complications and alternatives to the procedure were explained to the patient. He elects to proceed. OPERATIVE COURSE: The patient was seen in his room. The entire procedure was performed in the presence of a nurse. The patient was positioned in the Trendelenburg position. The right neck was sterilely prepped and draped. A local anesthetic was used to infiltrate the skin and subcutaneous tissues at the base of the right neck. The right internal jugular vein was percutaneously accessed in an antegrade fashion. A guidewire was passed easily. A small skin maylin was accomplished. A vessel dilator was used to dilate a subcutaneous tract. A 16-cm triple lumen central venous catheter was inserted to the hub. It was sutured in place times 3. All lumens flushed easily and aspirated dark, nonpulsatile blood. A stat portable chest x-ray is pending. TRANSINT:[id number] Voice Confirmation ID: [id number] DOCUMENT ID: [id number] VISHAL ANN MD at 1329 CC: [id number] DICTATION DATE: 07/15/19 1724 CEMETERY VAULT INSTALLER: 07/15/19 1824 ADM IN [place] [id number] [place] [address]
--- NOTE | 2019-07-17 15:29 | NUR ---
OT NOTE: PT COMPLETED RUE AROM AXS . PT REQUIRED MOD CUES FOR INCREASED SAFETY. PT COMPLETED ADL MOB TO BATHROOM WITH SBA/CGA. PT EDUCATED TO INCREASE PT SAFETY WITH MEDICAL EQUIPMENT DURING TRANSFER. PT CUED TO MANAGE LINES. PT EDUCATED TO USE CALL LIGHT. PT COMPLETED TOILETING WITH SBA. [phone] THANK YOU,ROSALIA SALDIVAR
[2019-07-17 16:18] VITALS: BP 112/71
[2019-07-17 21:50] VITALS: BP 125/75
[2019-07-18] VITALS: BP 128/79
[2019-07-18 05:50] VITALS: BP 146/92
--- NOTE | 2019-07-18 07:20 | NUR ---
ALERT AND ORIENTED, SITTING UP ON THE SIDE OF THE BED. NO C/O PAIN, MORPHINE TARIFF SUPERVISOR MANAGING PAIN AT THIS TIME. RIGHT IJ, NS INFUSING @ 75ML/HR. SITE PATENT WITHOUT REDNESS OR SWELLING. ON TELEMETRY 79 SR WITH BBB. UP WITH ASSIST. DRESSING TO RIGHT AXILLA, C/D/I. SCDS. ACHS. NO S/S OF ACUTE DISTRESS NOTED. DENIES ANY NEEDS AT THIS TIME. CALL LIGHT IN REACH. WILL CONTINUE TO MONITOR.
[2019-07-18 08:38] LABS: BASOPHILS 0.2 % (0-2); EOSINOPHILS 1.5 % (0-7); HEMATOCRIT 30.4 % (42.0-54.0); HEMOGLOBIN 9.6 g/dL (13.5-17.5); IMMATURE GRANULOCYTES 2.2 % (0-5); LYMPHOCYTES 9.1 % (15-50); MCH 30.2 pg (26.0-34.0); MCHC 31.6 g/dL (31.0-37.0); MCV 95.6 fL (80.0-100.0); MEAN PLATELET VOLUME 9.7 fL (7.4-10.4); PLATELET COUNT 249 10x3/uL (130-400); RBC 3.18 10x6/uL (4.20-6.10); RDW 13.8 % (11.5-14.5); WBC 12.1 10x3/uL (4.8-10.8)
[2019-07-18 08:51] LABS: ANION GAP 13.8 mmol/L (8-16); CALCIUM 8.7 mg/dL (8.5-10.1); CARBON DIOXIDE 20.5 mmol/L (21.0-32.0); CREATININE - SERUM 1.8 mg/dL (0.6-1.3); MAGNESIUM - SERUM 2.1 mg/dL (1.8-2.4); POTASSIUM - SERUM 4.3 mmol/L (3.5-5.1)
[2019-07-18 09:16] VITALS: BP 136/88
[2019-07-18 13:20] VITALS: BP 123/78
--- NOTE | 2019-07-18 13:54 | NUR ---
Nutrition follow-up: Diet: ADA consistent CHO PO Intake 95% average of last 9 meals Labs reviewed Wt: 261# Glucose elevated possibly due to wound PO intake is good at this time RDN following.
--- NOTE | 2019-07-18 15:06 | NUR ---
OT NOTE: PT UPRIGHT IN CHAIR. PT COMPLETED SIT TO STAND WITH SBA. PT COMPLETED STANDING BALANCE AXS WITH CGA. PT COMPLETED BUE AROM EXS TOLERATED. [phone] THANK YOU,ROSALIA SALDIVAR
--- NOTE | 2019-07-18 16:13 | NUR ---
OT NOTE: UPON ENTERING ROOM, PT WAS IN BATHROOM; PERFORMED SIT TO STAND WITHOUT ASSIST; TOILET HYGIENE IWTH SPV; AMB A FEW STEPS TO CHAIR WITH CGA; B UE AROM EXS AND COORDINATION TASKS WITH R HAND. SEAN SPRAGUE, OTR/L [phone]
[2019-07-18 18:56] VITALS: BP 103/79
--- NOTE | 2019-07-18 19:57 | NUR ---
I have reviewed this patient and I concur with the Shift Assessment completed by the Licensed Practical Nurse today this shift.
[2019-07-18 20:00] VITALS: BP 134/75
--- NOTE | 2019-07-18 20:00 | NUR ---
ALERT SITTING UP IN CHAIR, DENIES PAIN OR NEEDS AT THIS TIME, SEE SHIFT ASSESSMENT, CALL LIGHT IN REACH
[2019-07-19 04:00] VITALS: BP 144/75
[2019-07-19 05:54] LABS: BASOPHILS 0.1 % (0-2); EOSINOPHILS 2.5 % (0-7); HEMATOCRIT 26.6 % (42.0-54.0); HEMOGLOBIN 8.4 g/dL (13.5-17.5); LYMPHOCYTES 8.9 % (15-50); MCH 30.3 pg (26.0-34.0); MCHC 31.6 g/dL (31.0-37.0); MEAN PLATELET VOLUME 9.5 fL (7.4-10.4); MONOCYTES 9.5 % (2-11); PLATELET COUNT 284 10x3/uL (130-400); RBC 2.77 10x6/uL (4.20-6.10); RDW 13.9 % (11.5-14.5); WBC 10.3 10x3/uL (4.8-10.8)
[2019-07-19 06:24] LABS: ANION GAP 13.5 mmol/L (8-16); CALCIUM 8.5 mg/dL (8.5-10.1); CARBON DIOXIDE 20.6 mmol/L (21.0-32.0); CREATININE - SERUM 1.8 mg/dL (0.6-1.3); MAGNESIUM - SERUM 2.1 mg/dL (1.8-2.4); POTASSIUM - SERUM 4.1 mmol/L (3.5-5.1)
--- NOTE | 2019-07-19 07:52 | NUR ---
PT LYING IN BED ASLEEP, PER PM NURSE PT WAS UP ALL NIGHT IN CHAIR PLAYING GAMES ON PHONE, STARTED PT 7 OCLOCK ABX, IV RT IJ INTACT, WILL CHANGE DRESSING TODAY, CL IN REACH ASSUME PT CARE
[2019-07-19 08:00] VITALS: BP 138/92
[2019-07-19 12:00] VITALS: BP 133/90
--- NOTE | 2019-07-19 13:18 | NUR ---
PT C/O UPSET STOMACH, STATED HE BELIEVES IT IS DUE TO NICOTIENE PATCH AND ASKED THAT I REMOVE IT. PT PATCH ON LEFT SHOULDER BLADE, REMOVED PER REQUEST, PT IS SITTING UP IN CHAIR AT BEDISDE, NO OTHER NEEDS VOICED, CONTINUE WITH PLAN OF CARE
--- NOTE | 2019-07-19 13:41 | MORECARE ---
CASE MANAGEMENT DISCHARGE SUMMARY PATIENT: MIGUEL CLEMONS RAY UNIT: [id number] ADM DATE: 07/11/19 AGE: 68 : 52 SEX: M ROOM/BED: D.2233 AUTHOR: MELISSADOC PHYSICIAN: REFERRING PHYSICIAN: MÓNICA MARKHAM MD DATE OF SERVICE: 07/19/19 Discharge Plan Patient Name: MIGUEL CLEMONS Facility: [facility]:[place] : 1950 Planned Disposition: Anticipated Discharge Date: Discharge Date: Expected LOS: Initial Reviewer: [email or web address] Initial Review Date: 07/19/2019 Generated: 07/19/19 2:40 pm Comments DCP- Discharge Planning Updated by [email or web address]: Kristyn Infante on 07/19/19 12:[address] Patient Name: MIGUEL CLEMONS Admission Status: ER Accout number: [id number] Admission Date: 07-11-2019 : 1950 Admission Diagnosis:CUTANEOUS ABSCESS OF RIGHT AXILLA Attending: MÓNICA NARAYANAN Current LOS: 8 Anticipated DC Date: Planned Disposition: Primary Insurance: MEDICARE A & B Discharge Planning Comments: CM met with patient at bedside after explaining CM role and obtaining verbal consent. CM discussed availability / needs of home health, REHAB and medical equipment. STATES MET WITH [facility] TODAY AND FILLED OUT PAPERS, SHANA SIGNED FOR HOSPICE OR TO RESUME CARE 4 HH. IMM SIGNED. STATES WAITING TO HEAR BACK FROM HOSPICE BEFORE FINAL DECISION IS MADE. CM TO FOLLOW AND ASSIST. Merchandising Specialist: Kristyn Infante DCPIA - Discharge Planning Initial Assessment Updated by [email or web address]: Kristyn Infante on 07/19/19 1:37 pm * Is the patient Alert and Oriented? Yes * PCP [facility] * [facility] * Preadmission Environment Home with Family * ADLs Independent * Equipment Glucometer * Other Equipment OXYGEN AND PORTABLE * Community resources currently utilized Home Health * Please name any agencies selected above. CARE 4 * Additional services required to return to the preadmission environment? Yes * Can the patient safely return to the preadmission environment? Yes * Has this patient been hospitalized within the prior 30 days at any hospital? No Coverage Notice Reviewer: [id number] - Kristyn Infante Notice Issued Date-Time: 07/19/2019 13:39 Notice Type: IM Discharge Notice Notice Delivered To: Patient Relationship to Patient: Equipment Operator Name: Delivery Method: HAND - Hand Delivered Sherin Days: Prior Verbal Notification: Recipient Understood Notice: Yes Recipient Signature: Yes Med Rec Note Co-signed by Attending: Coverage Notice Comment: Reviewer: [id number] Pradeep Infante Notice Issued Date-Time: 07/19/2019 13:39 Notice Type: Patient Choice Letter Notice Delivered To: Patient Relationship to Patient: Equipment Operator Name: Delivery Method: HAND - Hand Delivered Sherin Days: Prior Verbal Notification: Recipient Understood Notice: Yes Recipient Signature: Yes Med Rec Note Co-signed by Attending: Coverage Notice Comment[facility] Patient Name: MIGUEL CLEMONS Page [id number] at 1341 All edits/amendments must be made on the electronic document DICTATION DATE: 07/19/19 1341 TAXI PROPRIETOR: SHIVA 07/19/19 1341 RPT#: [id number] DC DATE: STATUS: ADM IN [facility] [address] [place] [address] END OF REPORT
--- NOTE | 2019-07-19 14:18 | NUR ---
OT NOTE: LESS CONFUSION NOTED TODAY. AMB TO BATHROOM WITHOUT AD AND WITH SBA, HOWEVER, CONTINUES TO FORGET ABOUT HIS IV POLE AND REQUIRES VERBAL CUES FOR SAFETY WITH THIS. ABLE TO PERFORM TOILETING AND CLOTHING MGMT WITH SPV; AMB IN ROOM WITH ASSIST OF BED AND SBA. STANDING BALANCE ACT AT SINK; SIMPLE GROOMING TASKS IN STANDING; AROM EXS WITH R UE. NOTICED THAT BANDAGE WAS COMING OFF AND APPLIED ANOTHER PIECE OF TAPE. PT REPORTED THAT IT WAS CHANGED EARLY THIS AM DUE TO INCREASED AMOUNT OF DRAINAGE. PT WANTING TO RETURN HOME. SEAN SPRAGUE, OTR/L [phone]
--- NOTE | 2019-07-19 14:38 | NUR ---
OT NOTE: PT COMPLETED ADL MOB WITHIN ROOM WITH SBA. PT COMPLETED CHAIR TO TOILET TSF WITH SBA. PT COMPLETED TOILETING AND HYGIENE TASKS WITH SBA. PT COMPLETED RUE AROM AXS. [phone] THANK YOU,ROSALIA SALDIVAR
[2019-07-19 16:00] VITALS: BP 138/89
[2019-07-19 18:08] LABS: AEROBE ID Final report (())
[2019-07-19 20:00] VITALS: BP 123/84
--- NOTE | 2019-07-19 20:00 | NUR ---
PT SITTING UP IN BEDSIDE CHAIR WITHOUT DISTRESS, AOX4. DENIES PAIN OR NEEDS AT THIS TIME. CL IN REACH, WILL CTM
--- NOTE | 2019-07-19 21:15 | NUR ---
FSBS 209, COVERAGE PER SS, SEE MAR. PROVIDED PT COFFEE. PT FEET SWOLLEN. ENCOURAGED TO LAY IN BED AND PROP THEM UP. PT STATES HE WILL TONIGHT. WILL CTM
--- NOTE | 2019-07-19 22:40 | NUR ---
PT STATES PAIN IN FEET 10/22, GAVE NORCO ORDERED. PT HAS FEET PROPPED UP IN BED. CL IN REACH, WILL CTM
[2019-07-20 04:00] VITALS: BP 144/94
[2019-07-20 06:30] LABS: CALCIUM 8.9 mg/dL (8.5-10.1); CARBON DIOXIDE 20.5 mmol/L (21.0-32.0); CREATININE - SERUM 1.9 mg/dL (0.6-1.3); POTASSIUM - SERUM 4.5 mmol/L (3.5-5.1)
--- NOTE | 2019-07-20 07:18 | NUR ---
PT SITTING UP IN CHAIR AT BEDSIDE, C/O PAIN IN FEET, STATES THEY ARE SWOLLEN, PT RECENTLY ADMITTED FOR CHF, NO DIURETICS ON PT MED REC, WILL MENTION TO DOCTORS, NO OTHER NEEDS AT THIS TIME, CONTINUE WITH PLAN OF CARE
[2019-07-20 07:23] LABS: BASOPHILS 0.3 % (0-2); EOSINOPHILS 2.3 % (0-7); HEMATOCRIT 27.4 % (42.0-54.0); HEMOGLOBIN 8.7 g/dL (13.5-17.5); IMMATURE GRANULOCYTES 1.3 % (0-5); LYMPHOCYTES 10.3 % (15-50); MCH 30.6 pg (26.0-34.0); MCHC 31.8 g/dL (31.0-37.0); MCV 96.5 fL (80.0-100.0); MEAN PLATELET VOLUME 9.7 fL (7.4-10.4); MONOCYTES 8.5 % (2-11); NEUTROPHILS 77.3 % (40-80); RBC 2.84 10x6/uL (4.20-6.10); RDW 14.2 % (11.5-14.5); WBC 11.2 10x3/uL (4.8-10.8)
[2019-07-20 07:27] LABS: PLATELET COUNT 342 10x3/uL (130-400)
[2019-07-20 08:00] VITALS: BP 148/92
[2019-07-20 12:00] VITALS: BP 146/98
[2019-07-20] MEDS ORDERED: DOXYCYCLINE HY100 M2 PO (14:28)
[2019-07-20] MEDS ORDERED: AUGMENTIN 875-11 TAB PO (14:28)
--- NOTE | 2019-07-20 16:17 | MORECARE ---
CASE MANAGEMENT DISCHARGE SUMMARY PATIENT: MIGUEL CLEMONS RAY UNIT: [id number] ADM DATE: 07/11/19 AGE: 68 : 52 SEX: M ROOM/BED: D.2233 AUTHOR: MELISSA,DOC PHYSICIAN: REFERRING PHYSICIAN: MÓNICA MARKHAM MD DATE OF SERVICE: 07/20/19 Discharge Plan Patient Name: MIGUEL CLEMONS Facility: [facility]:[place] : 1950 Planned Disposition: Anticipated Discharge Date: Discharge Date: Expected LOS: Initial Reviewer: [id number] Initial Review Date: 07/19/2019 Generated: 07/20/19 5:17 pm Comments DCP- Discharge Planning Updated by [email or web address]: Kristyn Infante on 07/19/19 12:[address] Patient Name: MIGUEL CLEMONS Admission Status: ER Accout number: [id number] Admission Date: 07-11-2019 : 1950 Admission Diagnosis:CUTANEOUS ABSCESS OF RIGHT AXILLA Attending: MÓNICA NARAYANAN Current LOS: 8 Anticipated DC Date: Planned Disposition: Primary Insurance: MEDICARE A & B Discharge Planning Comments: CM met with patient at bedside after explaining CM role and obtaining verbal consent. CM discussed availability / needs of home health, REHAB and medical equipment. STATES MET WITH [facility] TODAY AND FILLED OUT PAPERS, SHANA SIGNED FOR HOSPICE OR TO RESUME CARE 4 HH. IMM SIGNED. STATES WAITING TO HEAR BACK FROM HOSPICE BEFORE FINAL DECISION IS MADE. CM TO FOLLOW AND ASSIST. Passementerie Worker: Kristyn Infante DCPIA - Discharge Planning Initial Assessment Updated by [email or web address]: Kristyn Infante on 07/19/19 1:37 pm * Is the patient Alert and Oriented? Yes * PCP [facility] * [facility] * Preadmission Environment Home with Family * ADLs Independent * Equipment Glucometer * Other Equipment OXYGEN AND PORTABLE * Community resources currently utilized Home Health * Please name any agencies selected above. CARE 4 * Additional services required to return to the preadmission environment? Yes * Can the patient safely return to the preadmission environment? Yes * Has this patient been hospitalized within the prior 30 days at any hospital? No External Providers External Provider: [facility] Next Contact Date: Service Request Date: Service Type: Resolution: Reviewer: Comments: Coverage Notice Reviewer: [id number] Pradeep Infante Notice Issued Date-Time: 07/19/2019 13:39 Notice Type: IM Discharge Notice Notice Delivered To: Patient Relationship to Patient: Cigar Binder Name: Delivery Method: HAND - Hand Delivered Sherin Days: Prior Verbal Notification: Recipient Understood Notice: Yes Recipient Signature: Yes Med Rec Note Co-signed by Attending: Coverage Notice Comment: Reviewer: [id number] Infante Notice Issued Date-Time: 07/19/2019 13:39 Notice Type: Patient Choice Letter Notice Delivered To: Patient Relationship to Patient: Cigar Binder Name: Delivery Method: HAND - Hand Delivered Sherin Days: Prior Verbal Notification: Recipient Understood Notice: Yes Recipient Signature: Yes Med Rec Note Co-signed by Attending: Coverage Notice Comment: [facility] OR RESUME CARE 4 HH Last DP export: 07/19/19 12:41 pm Patient Name: MIGUEL CLEMONS Page [phone] at 1617 All edits/amendments must be made on the electronic document DICTATION DATE: 07/20/19 161 ANALYTICAL CLERK: SHIVA 07/20/19 1617 RPT#: [id number] DC DATE: STATUS: ADM IN [facility] [address] [place] [address] END OF REPORT
--- NOTE | 2019-07-20 16:38 | NUR ---
OT NOTE: PT COMPLETED ADL MOB TO TOILET WITH SPV. PT COMPLETED SITTING BALANCE AXS WITH SPV. PT COMPLETED LB HYGIENE TASKS WITH SPV. PT COMPLETED FACE/HAND HYGIENE WITH SPV. [phone] THANK YOU,ROSALIA SALDIVAR
--- NOTE | 2019-07-21 10:37 | MORECARE ---
CASE MANAGEMENT DISCHARGE SUMMARY PATIENT: MIGUEL CLEMONS RAY UNIT: [id number] ADM DATE: 07/11/19 AGE: 68 : 52 SEX: M ROOM/BED: D.2233 AUTHOR: MELISSADOC PHYSICIAN: REFERRING PHYSICIAN: MÓNICA MARKHAM MD DATE OF SERVICE: 07/21/19 Discharge Plan Patient Name: MIGUEL CLEMONS Facility: [facility]:[place] : 1950 Planned Disposition: Anticipated Discharge Date: Discharge Date: 07/20/2019 Expected LOS: 0 Initial Reviewer: [id number] Initial Review Date: 07/19/2019 Generated: 07/21/19 11:36 am Comments DCP- Discharge Planning Updated by [id number]: Kristyn Infante on 07/19/19 12:[address] Patient Name: MIGUEL CLEMONS Admission Status: ER Accout number: [id number] Admission Date: 07-11-2019 : 1950 Admission Diagnosis:CUTANEOUS ABSCESS OF RIGHT AXILLA Attending: MÓNICA NARAYANAN Current LOS: 8 Anticipated DC Date: Planned Disposition: Primary Insurance: MEDICARE A & B Discharge Planning Comments: CM met with patient at bedside after explaining CM role and obtaining verbal consent. CM discussed availability / needs of home health, REHAB and medical equipment. STATES MET WITH [facility] TODAY AND FILLED OUT PAPERS, SHANA SIGNED FOR HOSPICE OR TO RESUME CARE 4 HH. IMM SIGNED. STATES WAITING TO HEAR BACK FROM HOSPICE BEFORE FINAL DECISION IS MADE. CM TO FOLLOW AND ASSIST. Space Scheduler: Kristyn Infante DCPIA - Discharge Planning Initial Assessment Updated by [id number]: Kristyn Infante on 07/19/19 1:37 pm * Is the patient Alert and Oriented? Yes * PCP [facility] * [facility] * Preadmission Environment Home with Family * ADLs Independent * Equipment Glucometer * Other Equipment OXYGEN AND PORTABLE * Community resources currently utilized Home Health * Please name any agencies selected above. CARE 4 * Additional services required to return to the preadmission environment? Yes * Can the patient safely return to the preadmission environment? Yes * Has this patient been hospitalized within the prior 30 days at any hospital? No Coverage Notice Reviewer: [id number] Pradeep Infante Notice Issued Date-Time: 07/19/2019 13:39 Notice Type: IM Discharge Notice Notice Delivered To: Patient Relationship to Patient: Rigging Up Man Name: Delivery Method: HAND - Hand Delivered Sherin Days: Prior Verbal Notification: Recipient Understood Notice: Yes Recipient Signature: Yes Med Rec Note Co-signed by Attending: Coverage Notice Comment: Reviewer: [id number] Pradeep Infante Notice Issued Date-Time: 07/19/2019 13:39 Notice Type: Patient Choice Letter Notice Delivered To: Patient Relationship to Patient: Rigging Up Man Name: Delivery Method: HAND - Hand Delivered Sherin Days: Prior Verbal Notification: Recipient Understood Notice: Yes Recipient Signature: Yes Med Rec Note Co-signed by Attending: Coverage Notice Comment: [facility] Last DP export: 07/20/19 3:17 pm Patient Name: MIGUEL CLEMONS Page [phone] at 1037 All edits/amendments must be made on the electronic document DICTATION DATE: 07/21/19 1037 MAINSTREAMING FACILITATOR: SHIVA 07/21/19 [facility] RPT#: [id number] DC DATE:07/20/19 STATUS: DIS IN [facility] [address] [place] [address] END OF REPORT
== END 2019-07-20 17:51 | disposition home health service (06) | DRG 854 ==
LOC: D.ER 14:25 → D.MS 17:56 → D.SDCHOLD 07-14 17:26 → D.MS 07-14 17:29
PROVIDERS: Family Medicine; Internal Medicine Nephrology; Surgery; ADMIT Family Medicine Adult Medicine; ATTEND Family Medicine Adult Medicine
PROC: 0JBD0ZZ Excision of Right Upper Arm Subcutaneous Tissue and Fascia, Open Approach (ICD-10-PCS; principal; 2019-07-12 11:00)
DX: A41.9 Sepsis, unspecified organism (principal); L02.411 Cutaneous abscess of right axilla; N17.9 Acute kidney failure, unspecified; I13.0 Hypertensive heart and chronic kidney disease with heart failure and stage 1 through stage 4 chronic kidney disease, or unspecified chronic kidney disease; E87.1 Hypo-osmolality and hyponatremia; F17.203 Nicotine dependence unspecified, with withdrawal; I50.20 Unspecified systolic (congestive) heart failure; I25.10 Atherosclerotic heart disease of native coronary artery without angina pectoris; E78.5 Hyperlipidemia, unspecified; E11.22 Type 2 diabetes mellitus with diabetic chronic kidney disease; E11.65 Type 2 diabetes mellitus with hyperglycemia; N18.9 Chronic kidney disease, unspecified; N40.0 Benign prostatic hyperplasia without lower urinary tract symptoms; D63.1 Anemia in chronic kidney disease; K21.9 Gastro-esophageal reflux disease without esophagitis

== ENCOUNTER 2019-10-17 10:01 | Inpatient (IN) | payer MEDICARE ==
[2019-10-17] VITALS (7 sets, daily range): BP systolic 107–140; BP diastolic 72–98; BMI 38.5
[~2019-10-17] VITALS: Ht 175.3 cm; Wt 118.6 kg
[~2019-10-17 10:01] MED LIST changes: +AUGMENTIN 875-11 TAB PO; +DOXYCYCLINE HY100 M2 PO; +[UNRECOGNIZED DRUG - REMARK]
[2019-10-17] MEDS ORDERED: BICALUTAMIDE PO (10:16)
[2019-10-17] MEDS ORDERED: BUPROPION HCL150 M1 PO (10:18)
[2019-10-17] MEDS ORDERED: GLIPIZIDE10 MG PO (10:19)
[2019-10-17] MEDS ORDERED: ZANAFLEX4 MG PO (10:20)
[2019-10-17] MEDS ORDERED: HYDROCODON-ACE1 EAC7 PO (10:21)
[2019-10-17 10:42] LABS: BASOPHILS 0.2 % (0-2); EOSINOPHILS 1.2 % (0-7); HEMATOCRIT 30.8 % (42.0-54.0); HEMOGLOBIN 9.6 g/dL (13.5-17.5); IMMATURE GRANULOCYTES 0.4 % (0-5); LYMPHOCYTES 11.5 % (15-50); MCH 29.6 pg (26.0-34.0); MCHC 31.2 g/dL (31.0-37.0); MCV 95.1 fL (80.0-100.0); MEAN PLATELET VOLUME 9.4 fL (7.4-10.4); MONOCYTES 7.7 % (2-11); RBC 3.24 10x6/uL (4.20-6.10); RDW 13.8 % (11.5-14.5); WBC 8.3 10x3/uL (4.8-10.8)
[2019-10-17 10:50] LABS: PLATELET COUNT 249 10x3/uL (130-400)
[2019-10-17 10:51] LABS: CALC OSMOLALITY 281 mosm/kg (275-300); CARBON DIOXIDE 27.9 mmol/L (21.0-32.0); CHLORIDE - SERUM 101 mmol/L (98-107); CREATININE - SERUM 2.7 mg/dL (0.6-1.3); GLUCOSE 223 mg/dL (74-106); INR 1.12 (0.85-1.17); POTASSIUM - SERUM 4.6 mmol/L (3.5-5.1); PROTIME 14.3 SECONDS (11.6-15.0); SODIUM 134 mmol/L (136-145); UREA NITROGEN 33 mg/dL (7-18); eGFR NON AFRICAN AMERICAN 25 mL/min (90-120)
[2019-10-17 11:06] LABS: ALKALINE PHOSPHATASE 196 U/L (30-120); ALT (SGPT) 26 U/L (10-68); BILIRUBIN - TOTAL 0.41 mg/dL (0.2-1.3); CKMB 1.8 U/L (0.0-3.6); CREATINE KINASE 227 UL (21-232); MAGNESIUM - SERUM 2.7 mg/dL (1.8-2.4); PROTEIN - SERUM 8.1 g/dL (6.4-8.2); TROPONIN-I < 0.017 ng/mL (0.000-0.060)
[2019-10-17 13:18] LABS: BILIRUBIN NEGATIVE (NEGATIVE); GLUCOSE NEGATIVE (NEGATIVE); KETONE NEGATIVE (NEGATIVE); NITRITE NEGATIVE (NEGATIVE); UROBILINOGEN NORMAL (NORMAL)
[2019-10-17 15:28] LABS: % SATURATION 13 % (15-55); IRON 39 ug/dl (35-150); TOTAL IRON BIND CAPACITY 281 ug/dl (260-445); UNSAT IRON BIND CAPACITY 242 ug/dl (150-375)
--- NOTE | 2019-10-17 19:30 | NUR ---
RECEIVED BEDSIDE REPORT. PATIENT IS ALERT AND ORIENTED, RESTING COMFORTABLY IN BED. RESPIRATIONS ARE EVEN AND UNLABORED. NO S/S OF DISTRESS. NO C/O PAIN. CALLLIGHT WITHIN REACH. WILL CPOC.
[2019-10-18] VITALS: BP 121/92
[2019-10-18 04:00] VITALS: BP 117/88
[2019-10-18 04:59] LABS: UDS - AMPHET NEGATIVE QUAL (NEGATIVE); UDS - BARB NEGATIVE QUAL (NEGATIVE); UDS - BENZO NEGATIVE QUAL (NEGATIVE); UDS - COCAINE NEGATIVE QUAL (NEGATIVE); UDS - OPIATE POSITIVE QUAL (NEGATIVE); UDS - PCP NEGATIVE QUAL (NEGATIVE); UDS - THC POSITIVE QUAL (NEGATIVE)
[2019-10-18 07:57] LABS: BASOPHILS 0.4 % (0-2); EOSINOPHILS 2.1 % (0-7); HEMATOCRIT 34.7 % (42.0-54.0); HEMOGLOBIN 10.7 g/dL (13.5-17.5); IMMATURE GRANULOCYTES 0.4 % (0-5); MCH 29.5 pg (26.0-34.0); MCHC 30.8 g/dL (31.0-37.0); MCV 95.6 fL (80.0-100.0); MEAN PLATELET VOLUME 9.1 fL (7.4-10.4); MONOCYTES 9.1 % (2-11); PLATELET COUNT 257 10x3/uL (130-400); RBC 3.63 10x6/uL (4.20-6.10); RDW 13.7 % (11.5-14.5); WBC 6.7 10x3/uL (4.8-10.8)
[2019-10-18 08:15] LABS: ALBUMIN 3.1 g/dL (3.4-5.0); ANION GAP 10.6 mmol/L (8-16); BILIRUBIN - TOTAL 0.43 mg/dL (0.2-1.3); CALCIUM 8.9 mg/dL (8.5-10.1); CARBON DIOXIDE 30.1 mmol/L (21.0-32.0); CREATININE - SERUM 2.7 mg/dL (0.6-1.3); POTASSIUM - SERUM 4.7 mmol/L (3.5-5.1); PROTEIN - SERUM 7.9 g/dL (6.4-8.2)
[2019-10-18 09:04] VITALS: BP 129/85
[2019-10-18 13:17] VITALS: Ht 175.3 cm; Wt 118.6 kg
[2019-10-18 13:29] VITALS: BP 121/78
[2019-10-18 17:03] VITALS: BP 126/92
--- NOTE | 2019-10-18 19:20 | NUR ---
STOOL SPECIMINE COLLECTED AND TAKEN TO LAB.
[2019-10-18 20:00] VITALS: BP 117/92
[2019-10-19] VITALS: BP 116/75
--- NOTE | 2019-10-19 02:27 | NUR ---
YOANNA CRACKERS AND ICE CREAM GIVEN AT PT REQUEST.
--- NOTE | 2019-10-19 03:53 | NUR ---
I have reviewed this patient and I concur with the Shift Assessment completed by the Licensed Practical Nurse today this shift.
[2019-10-19 04:00] VITALS: BP 118/81
--- NOTE | 2019-10-19 05:55 | NUR ---
MATHIEU SUPP. Bruno GILL AT BED SIDE TO SPEAK WITH PT ABOUT HAVING PT REMOVED FROM DR MURRY SERVICES.
[2019-10-19 07:10] LABS: BASOPHILS 0.3 % (0-2); HEMOGLOBIN 11.1 g/dL (13.5-17.5); IMMATURE GRANULOCYTES 0.5 % (0-5); LYMPHOCYTES 12.9 % (15-50); MCH 29.1 pg (26.0-34.0); MCHC 30.8 g/dL (31.0-37.0); MCV 94.5 fL (80.0-100.0); MEAN PLATELET VOLUME 9.6 fL (7.4-10.4); MONOCYTES 9.9 % (2-11); NEUTROPHILS 74.4 % (40-80); PLATELET COUNT 233 10x3/uL (130-400); RBC 3.81 10x6/uL (4.20-6.10); RDW 13.7 % (11.5-14.5); WBC 7.8 10x3/uL (4.8-10.8)
[2019-10-19 07:31] LABS: CALCIUM 8.3 mg/dL (8.5-10.1); CARBON DIOXIDE 29.9 mmol/L (21.0-32.0); CREATININE - SERUM 2.8 mg/dL (0.6-1.3); POTASSIUM - SERUM 4.9 mmol/L (3.5-5.1)
[2019-10-19 08:01] VITALS: BP 110/78
[2019-10-19 12:13] VITALS: BP 130/88
[2019-10-19 15:10] VITALS: BP 123/85
[2019-10-19 20:00] VITALS: BP 138/91
[2019-10-20 04:00] VITALS: BP 111/77
[2019-10-20 06:24] LABS: BASOPHILS 0.2 % (0-2); EOSINOPHILS 2.1 % (0-7); HEMATOCRIT 35.3 % (42.0-54.0); HEMOGLOBIN 11.1 g/dL (13.5-17.5); IMMATURE GRANULOCYTES 0.4 % (0-5); LYMPHOCYTES 11.8 % (15-50); MCH 29.5 pg (26.0-34.0); MCHC 31.4 g/dL (31.0-37.0); MCV 93.9 fL (80.0-100.0); MEAN PLATELET VOLUME 9.3 fL (7.4-10.4); MONOCYTES 7.8 % (2-11); NEUTROPHILS 77.7 % (40-80); PLATELET COUNT 258 10x3/uL (130-400); RBC 3.76 10x6/uL (4.20-6.10); RDW 13.8 % (11.5-14.5); WBC 8.1 10x3/uL (4.8-10.8)
[2019-10-20 06:59] LABS: ANION GAP 15.1 mmol/L (8-16); CALCIUM 8.7 mg/dL (8.5-10.1); CARBON DIOXIDE 29.8 mmol/L (21.0-32.0); POTASSIUM - SERUM 4.9 mmol/L (3.5-5.1)
--- NOTE | 2019-10-20 07:14 | NUR ---
PT LAYING SUPINE, RR EVEN AND UNLABORED. DENIES NEEDS OR PAIN AT THIS TIME. CALL LIGHT WITHIN REACH. BED IN LOWEST POSITION. WILL CONTINUE TO MONITOR.
[2019-10-20 09:11] VITALS: BP 134/85
--- NOTE | 2019-10-20 11:30 | CN ---
PATIENT NAME:MIGUEL CLEMONS MEDICAL RECORD: [id number] : 54 LOCATION:D. D.2120 ADMIT DATE: 10/17/19 ACCOUNT: [id number] CONSULTING PHYSICIAN: GONZALO HAN MD REFERRING PHYSICIAN: GONZALO VANESSA MD DATE OF CONSULTATION: 10/18/2019 HISTORY OF PRESENT ILLNESS: A 68-year-old gentleman with known history of coronary artery disease as well as ischemic cardiomyopathy, reports a 10 week history of typical volume overload, dyspnea on exertion and point of tita orthopnea, PND, presented to the ER. He is actually improving nicely with IV loop diuretics, some dietary discretion which seems concerning his cardiovascular status. PAST MEDICAL HISTORY: Includes, 1. History of coronary artery disease, status post intervention. 2. Cardiomyopathy. 3. Status post ICD implantation. 4. Diabetes mellitus. MEDICATIONS: 1. Glipizide 10 mg p.o. daily. 2. Omeprazole 40 mg p.o. daily. 3. Bumex 2 mg p.o. b.i.d. 4. Hydrocodone 5/325 one q. 6 hours p.r.n. 5. Wellbutrin 150 mg b.i.d. 6. Aspirin 325 every day. 7. Pravastatin 40 every day. 8. Lisinopril 5 every day. 9. Carvedilol 6.25. ALLERGIES: None known. SOCIAL HISTORY: Smokes about a pack a day. No illicit drug use. No set of exercise program secondary to back issues. REVIEW OF SYSTEMS: The patient reports easy bruising but reports no swollen glands. The patient reports no fever, no night sweats, no significant weight gain, no significant weight loss. No significant exercise tolerance. The patient reports no dry eyes, no irritation, no vision change. Patient reports no difficulty hearing and no ear pain. Patient reports no frequent nose bleeds or nose and sinus problems. Patient reports on arm pain on exertion. No shortness of breath while lying down. No history of heart murmur. Patient reports no cough, no wheezing or coughing up blood. Patient reports no abdominal pain, no vomiting. Normal appetite. No diarrhea and not vomiting blood. No nausea and no constipation. Patient reports no incontinence. No difficulty urinating. No hematuria. No increased frequency. Patient reports no muscle aches. No weakness, no arthralgias, no back pain. No swelling of the extremities. Patient reports no abnormal mole, no jaundice, no rashes. Reports no loss of consciousness. No weakness and no numbness. No seizures, dizziness, or headaches. The patient reports no depression, no sleep disturbance, feeling safe in a relationship and no alcohol abuse. Patient reports on fatigue. Reports no runny nose or sinus pressure. No itching, no hives, and no frequent sneezing. CONSULT REPORT [id number] MIGUEL CLEMONS RAY PHYSICAL EXAMINATION: GENERAL: No acute distress, appears stated age. VITAL SIGNS: Blood pressure 129/85, pulse 73 and regular. HEENT: Normocephalic, atraumatic. NECK: No bruits are noted. HEART: Regular, probable S3 gallop. LUNGS: Diminished air excursion with expiratory wheezes. ABDOMEN: Soft, tender. EXTREMITIES: Pulses 1+ with 1+ edema. IMPRESSION: Inqlq-mv-iavsxfg systolic congestive heart failure/cardiomyopathy, improving nicely with IV loop diuretics. We will add Aldactone to his underlying baseline cardiomyopathic medications. It appears to be improving nicely. She will be able to go home in next few days. TRANSINT:[id number] Voice Confirmation ID: [id number] DOCUMENT ID: [id number] GONZALO HAN MD at 1130 CC: [id number] DICTATION DATE: 10/18/19 1223 INSIDE SALES PROFESSIONAL: 10/19/19 0049 ADM IN [place] [id number] [place] [address]
--- NOTE | 2019-10-20 11:30 | EC ---
PATIENT:MIGUEL CLEMONS DATE OF SERVICE: 10/17/19 SEX: M MEDICAL RECORD: [id number] DATE OF : 54 LOCATION:D.M2 D.212 AGE OF PATIENT: 68 ADMISSION DATE: 10/17/19 REFERRING PHYSICIAN: INTERPRETING PHYSICIAN: GONZALO HAN MD ECHOCARDIOGRAM REPORT ECHO CHARGES 4 ECHO COMPLETE Date: 10/18/19 CLINICAL DIAGNOSIS: LVH, CMP ECHOCARDIOGRAPHIC MEASUREMENTS (adult normal given) AC root (d.<3.7cm) 3.3 cm LV Septum d (<1.2 cm> 0.7 cm Valve Excursion 1.4 cm LV Septum (systole) 1.5 cm Left Atria (s.<4.0cm> 4.2 cm LVPW d(<1.2cm) 0.7 cm RV (d.<2.3cm) 4.1 cm LVPW (sytole) 1.2 cm LV diastole(<5.6CM) 7.2 cm MV E-F(>70mm/sec) cm LV systole 5.3 cm LVOT Diameter 2.1 cm MV exc.(>10mm) cm Est.ejection fraction (50-75%) % DOPPLER: LVIT cm/sec A 41 cm/sec E 88 cm/sec LA cm/sec RVSP 34.0 mmHg LVOT 73 cm/sec AOP1/2T m/s Asc. Ao 102 cm/sec RVOT 47 cm/sec RA cm/sec PA 57 cm/sec AV Gradient Peak 4.1 mmHg AV Mean 2.8 mmHg AV Area 2.4 cm MV Gradient Peak 4.9 mmHg MV Mean 2.2 mmHg MV Area cm COMMENTS: Street Superintendent: Junior BUCK Slide Forming Machine Tender: 3 Dr. Frias TAPE# PACS Pericardial Effusion N DATE OF SERVICE: 10/19/2019 Adequate 2D, color flow imaging, spectral Doppler, and M-Mode. No LVH. LV internal dimensions are dilated. LV is globally hypokinetic with reduced EF, estimated 35% to 40%. Aortic valve is sclerotic. No evidence of stenosis by Doppler interrogation. Left atrium minimally dilated at 4.2 cm. Mitral valve is thickened. Mild MR. Right-sided chambers are grossly normal. Mild TR. ECHOCARDIOGRAM REPORT [id number] MIGUEL CLEMONS TRANSINT:[id number] Voice Confirmation ID: [id number] DOCUMENT ID: [id number] GONZALO HAN MD at 1130 CC: [id number] DICTATION DATE: 10/19/19820 FIREWALL ADMINISTRATOR: 10/19/19 1143 ADM IN [place] [id number] [place] [id number]
[2019-10-20] MEDS ORDERED: BUMEX2 MG PO (11:43)
[2019-10-20 12:04] VITALS: BP 114/76
--- NOTE | 2019-10-20 12:48 | NUR ---
Nutrition Follow-up: Pt reports appetite is ok. Noted plans to d/c today. Diet: Cardiac Carb Consistent PO intake: 100% Wt: 261# (10/19) Last BM: 10/18 Labs noted: Glu 203 Meds noted: Bumex, Protonix, Humulin, electrolyte protocol -RD following.
--- NOTE | 2019-10-20 14:24 | MORECARE ---
CASE MANAGEMENT DISCHARGE SUMMARY PATIENT: MIGUEL CLEMONS UNIT: [id number] ADM DATE: 10/17/19 AGE: 68 : 52 SEX: M ROOM/BED: D.2120 AUTHOR: RICARDO TORRES PHYSICIAN: REFERRING PHYSICIAN: GONZALO VANESSA MD DATE OF SERVICE: 10/20/19 Discharge Plan Patient Name: MIGUEL CLEMONS [facility] [facility] 1950 Planned Disposition: Home Health Service Anticipated Discharge Date: 10/20/19 Discharge Date: Expected LOS: 3 Initial Reviewer: [email or web address] Initial Review Date: 10/17/2019 Generated: 10/20/19 3:23 pm External Providers External Provider: [facility] Next Contact Date: Service Request Date: Service Type: Resolution: Reviewer: Comments: External Provider: Gos[facility] Next Contact Date: Service Request Date: Service Type: Resolution: Reviewer: Comments: Patient Name: MIGUEL CLEMONS Page [phone] at 1424 All edits/amendments must be made on the electronic document DICTATION DATE: 10/20/19 142 NETWORK CABLER: SHIVA 10/20/19 142 RPT#: [id number] DC DATE: STATUS: ADM IN [facility] [address] [place] [address] END OF REPORT
[2019-10-20] MEDS ORDERED: NOVOLOG FLEXPEN (14:28)
--- NOTE | 2019-10-20 14:53 | MORECARE ---
CASE MANAGEMENT DISCHARGE SUMMARY PATIENT: MIGUEL CLEMONS UNIT: [id number] ADM DATE: 10/17/19 AGE: 68 : 52 SEX: M ROOM/BED: D.0121 AUTHOR: MELISSA,DOC PHYSICIAN: REFERRING PHYSICIAN: GONZALO VANESSA MD DATE OF SERVICE: 10/20/19 Discharge Plan Patient Name: MIGUEL CLEMONS Facility: [facility]:[place] : 1950 Planned Disposition: Home Health Service Anticipated Discharge Date: 10/20/19 Discharge Date: Expected LOS: 3 Initial Reviewer: [email or web address] Initial Review Date: 10/17/2019 Generated: 10/20/19 3:52 pm Comments DCP- Discharge Planning Updated by [email or web address]: Barbara Jacob on 10/20/19 1:[address] CM met with patient to discuss initial discharge planning. Patient is in agreement to proceed with the assessment. Patient reports that she lives at home independently at the [facility]. Patient is alert/oriented. Stairs/steps: Elevator. PCP: Dr. Jaimes. Pharmacy: [facility]. Patient picks up his own medications. Patient states he has been able to obtain all of his prescribed medications. HHS: [facility]. DME: [facility] @. Request a walker for home use. CM contacted [facility], with [facility], provided the order verbally and faxed with correct address, phone number. Patient gives permission to speak with family members. Emergency contact: Sveta Lau (sister) [phone], Alex (niece) [phone]. 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 CM discussed the availability of HH, Rehab, SNF, OP Therapy, DME services. Patient denies the need for additional services at this time and feels safe returning to previous environment. Patient denies hospitalization within the past 30 days. Patient denies the use of community resources KNIT GOODS WASHER. Transportation at time of discharge: Alex will drive him home. CM contacted Adelfo Villegas, [facility] [phone], made him aware the patient will DC home today. HHS will resume on Wednesday. Last DP export: 10/20/19 1:24 pm Patient Name: MIGUEL CLEMONS Page [id number] at 1453 All edits/amendments must be made on the electronic document DICTATION DATE: 10/20/191451 PHOTOGRAPHY PROFESSOR: SHIVA 10/20/191451 RPT#: [id number] DC DATE: STATUS: ADM IN [facility] [address] [place] [address] END OF REPORT
--- NOTE | 2019-10-20 15:07 | MORECARE ---
CASE MANAGEMENT DISCHARGE SUMMARY PATIENT: MIGUEL CLEMONS UNIT: [id number] ADM DATE: 10/17/19 AGE: 68 : 52 SEX: M ROOM/BED: D.4404 AUTHOR: MELISSA,DOC PHYSICIAN: REFERRING PHYSICIAN: GONZALO VANESSA MD DATE OF SERVICE: 10/20/19 Discharge Plan Patient Name: MIGUEL CLEMONS Facility: [facility]:[place] : 1950 Planned Disposition: Home Health Service Anticipated Discharge Date: 10/20/19 Discharge Date: Expected LOS: 3 Initial Reviewer: [email or web address] Initial Review Date: 10/17/2019 Generated: 10/20/19 4:06 pm Comments DCP- Discharge Planning Updated by [email or web address]: Barbara Jacob on 10/20/19 2:[address] CM met with patient to discuss initial discharge planning. Patient is in agreement to proceed with the assessment. Patient reports that he lives at home independently at the [facility]. Patient is alert/oriented. Stairs/steps: Elevator. PCP: Dr. Jaimes. Pharmacy: [facility]. Patient picks up his own medications. Patient states he has been able to obtain all of his prescribed medications. HHS: [facility]. DME: O2 @. Request a walker for home use. CM contacted [facility], with [facility], provided the order verbally and faxed with correct address, phone number. Patient gives permission to speak with family members. Emergency contact: Sveta Lau (sister) [phone], Alex (niece) [phone]. 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 CM discussed the availability of HH, Rehab, SNF, OP Therapy, DME services. Patient denies the need for additional services at this time and feels safe returning to previous environment. Patient denies hospitalization within the past 30 days. Patient denies the use of community resources CONTRACT ENGINEER. Transportation at time of discharge: Alex will drive him home. CM contacted Adelfo Villegas, [facility] [phone], made him aware the patient will DC home today. HHS will resume on Wednesday. Coverage Notice Reviewer: [email or web address] Pradeep Jacob Notice Issued Date-Time: 10/20/2019 15:01 Notice Type: IM Discharge Notice Notice Delivered To: Family Member Relationship to Patient: Daughter River Rat Name: Any Covarrubias Delivery Method: - Sherin Days: Prior Verbal Notification: Recipient Understood Notice: Recipient Signature: Med Rec Note Co-signed by Attending: Coverage Notice Comment: Last DP export: 10/20/19 1:53 pm Patient Name: MIGUEL CLEMONS Page 14136 at 1507 All edits/amendments must be made on the electronic document DICTATION DATE: 10/20/19 1506 BAND SALVAGER: SHIVA 10/20/19 1506 RPT#: [id number] DC DATE: STATUS: ADM IN [facility] [address] [place] [address] END OF REPORT
--- NOTE | 2019-10-20 16:39 | NUR ---
D/C INSTRUCTIONS REVIEWED WIT PT AND FAMILY MEMBER. ALL VERBALIZED UNDERSTANDING. IV D/C WITH CATHETER TIP INTACT. LEFT VIA WHEELCHAIR WITH ALL BELONGINGS TO PERSONAL VEHICLE.
--- NOTE | 2019-10-21 12:58 | MORECARE ---
CASE MANAGEMENT DISCHARGE SUMMARY PATIENT: MIGUEL MADDEN UNIT: [id number] ADM DATE: 10/17/19 AGE: 68 : 52 SEX: M ROOM/BED: D.2120 AUTHOR: MELISSA,DOC PHYSICIAN: REFERRING PHYSICIAN: GONZALO VANESSA MD DATE OF SERVICE: 10/21/19 Discharge Plan Patient Name: MIGUEL MADDEN Facility: [facility]:[place] : 1950 Planned Disposition: Home Health Service Anticipated Discharge Date: 10/20/19 Discharge Date: 10/20/2019 Expected LOS: 3 Initial Reviewer: [email or web address] Initial Review Date: 10/17/2019 Generated: 10/21/19 1:58 pm Comments DCP- Discharge Planning Updated by [email or web address]: Barbara Jacob on 10/20/19 2:[address] CM met with patient to discuss initial discharge planning. Patient is in agreement to proceed with the assessment. Patient reports that he lives at home independently at the [facility]. Patient is alert/oriented. Stairs/steps: Elevator. PCP: Dr. Jaimes. Pharmacy: [facility]. Patient picks up his own medications. Patient states he has been able to obtain all of his prescribed medications. HHS: [facility]. DME: [facility] @[facility]. Request a walker for home use. CM contacted Orion with [facility], provided the order verbally and faxed with correct address, phone number. Patient gives permission to speak with family members. Emergency contact: Sveta Lau (sister) [phone], Alex (niece) [phone]. 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 CM discussed the availability of HH, Rehab, SNF, OP Therapy, DME services. Patient denies the need for additional services at this time and feels safe returning to previous environment. Patient denies hospitalization within the past 30 days. Patient denies the use of community resources POTLINE MONITOR. Transportation at time of discharge: Alex will drive him home. CM contacted Adelfo Villegas, [facility] [phone], made him aware the patient will DC home today. HHS will resume on Wednesday. Coverage Notice Reviewer: [id number] - Barbaralionel Jacob Notice Issued Date-Time: 10/20/2019 15:01 Notice Type: IM Discharge Notice Notice Delivered To: Patient Relationship to Patient: Self Seasonal Clerk Name: Miguel Madden Delivery Method: HAND - Hand Delivered Sherin Days: Prior Verbal Notification: Recipient Understood Notice: Yes Recipient Signature: Yes Med Rec Note Co-signed by Attending: Coverage Notice Comment: DC IMM signed/provided to patient. Original to chart Last DP export: 10/20/19 2:07 pm Patient Name: MIGUEL MADDEN Page 28896 at 1258 All edits/amendments must be made on the electronic document DICTATION DATE: 10/21/19 1258 SENIOR GAME DESIGNER: SHIVA 10/21/19 1258 RPT#: [id number] DC DATE:10/20/19 STATUS: DIS IN [place] [address] [place] [address] END OF REPORT
--- NOTE | 2019-10-23 13:20 | MORECARE ---
CASE MANAGEMENT DISCHARGE SUMMARY PATIENT: MIGUEL MADDEN UNIT: [id number] ADM DATE: 10/17/19 AGE: 68 : 52 SEX: M ROOM/BED: D.2590 AUTHOR: MELISSA,DOC PHYSICIAN: REFERRING PHYSICIAN: GONZALO VANESSA MD DATE OF SERVICE: 10/23/19 Discharge Plan Patient Name: MIGUEL MADDEN Facility: [facility]:[place] : 1950 Planned Disposition: Home Health Service Anticipated Discharge Date: 10/20/19 Discharge Date: 10/20/2019 Expected LOS: 3 Initial Reviewer: [email or web address] Initial Review Date: 10/17/2019 Generated: 10/23/19 2:20 pm Comments DCP- Discharge Planning Updated by [email or web address]: Barbara Jacob on 10/23/19 12:[address] Faxed required DC information to Adelfo Villegas, with [facility].. DCP- Discharge Planning Updated by [email or web address]: Barbara Jacob on 10/20/19 2:[address] CM met with patient to discuss initial discharge planning. Patient is in agreement to proceed with the assessment. Patient reports that he lives at home independently at the [facility]. Patient is alert/oriented. Stairs/steps: Elevator. PCP: Dr. Jaimes. Pharmacy: [facility]. Patient picks up his own medications. Patient states he has been able to obtain all of his prescribed medications. HHS: [facility]. DME: [facility]. Request a walker for home use. CM contacted [facility] with [facility], provided the order verbally and faxed with correct address, phone number. Patient gives permission to speak with family members. Emergency contact: Sveta Lau (sister) [phone], Alex (niece) [phone]. 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 CM discussed the availability of HH, Rehab, SNF, OP Therapy, DME services. Patient denies the need for additional services at this time and feels safe returning to previous environment. Patient denies hospitalization within the past 30 days. Patient denies the use of community resources DUNGEON MASTER. Transportation at time of discharge: Alex will drive him home. CM contacted Adelfo Villegas, [facility] [phone], made him aware the patient will DC home today. HHS will resume on Wednesday. Coverage Notice Reviewer: [email or web address] Pradeep Jacob Notice Issued Date-Time: 10/20/2019 15:01 Notice Type: IM Discharge Notice Notice Delivered To: Patient Relationship to Patient: Self Microsoft Dynamics Manager Architect Name: Miguel Madden Delivery Method: HAND - Hand Delivered Sherin Days: Prior Verbal Notification: Recipient Understood Notice: Yes Recipient Signature: Yes Med Rec Note Co-signed by Attending: Coverage Notice Comment: DC IMM signed/provided to patient. Original to chart Last DP export: 10/21/19 11:58 am Patient Name: MIGUEL MADDEN Page [phone] at 1320 All edits/amendments must be made on the electronic document DICTATION DATE: 10/23/19 1320 MANAGER LIFE SCIENCES: SHIVA 10/23/19 1320 RPT#: [id number] DC DATE:10/20/19 STATUS: DIS IN [facility] [address] [place] [address] END OF REPORT
== END 2019-10-20 16:40 | disposition home health service (06) | DRG 291 ==
LOC: D.ER 10:01 → D.M2 12:33
PROVIDERS: Family Medicine; ADMIT Family Medicine; ATTEND Family Medicine
DX: I13.0 Hypertensive heart and chronic kidney disease with heart failure and stage 1 through stage 4 chronic kidney disease, or unspecified chronic kidney disease (principal); I50.23 Acute on chronic systolic (congestive) heart failure; N17.9 Acute kidney failure, unspecified; E87.1 Hypo-osmolality and hyponatremia; N18.9 Chronic kidney disease, unspecified; E11.22 Type 2 diabetes mellitus with diabetic chronic kidney disease; D50.9 Iron deficiency anemia, unspecified; E66.01 Morbid (severe) obesity due to excess calories; E78.5 Hyperlipidemia, unspecified; I25.10 Atherosclerotic heart disease of native coronary artery without angina pectoris; K21.9 Gastro-esophageal reflux disease without esophagitis; N40.0 Benign prostatic hyperplasia without lower urinary tract symptoms; M19.90 Unspecified osteoarthritis, unspecified site; I42.9 Cardiomyopathy, unspecified; Z72.0 Tobacco use

== ENCOUNTER → 2019-11-01 09:14 | Outpatient (CLI) | payer MEDICARE ==
[2019-10-18 13:17] VITALS: BMI 38.4
[~2019-11-01 09:14] MED LIST changes: +BICALUTAMIDE PO; +BUPROPION HCL150 M1 PO; +GLIPIZIDE10 MG PO; +HYDROCODON-ACE1 EAC7 PO; +NOVOLOG FLEXPEN; +ZANAFLEX4 MG PO
[2019-11-01 10:16] LABS: BASOPHILS 0.3 % (0-2); EOSINOPHILS 3.2 % (0-7); HEMATOCRIT 40.2 % (42.0-54.0); HEMOGLOBIN 12.9 g/dL (13.5-17.5); IMMATURE GRANULOCYTES 0.3 % (0-5); LYMPHOCYTES 19.8 % (15-50); MCH 29.6 pg (26.0-34.0); MCHC 32.1 g/dL (31.0-37.0); MCV 92.2 fL (80.0-100.0); MEAN PLATELET VOLUME 9.2 fL (7.4-10.4); MONOCYTES 10.6 % (2-11); NEUTROPHILS 65.8 % (40-80); PLATELET COUNT 250 10x3/uL (130-400); RBC 4.36 10x6/uL (4.20-6.10); RDW 13.5 % (11.5-14.5); WBC 6.6 10x3/uL (4.8-10.8)
== END | disposition home or self-care (01) ==
LOC: D.LAB 09:14
PROVIDERS: ATTEND Nurse Practitioner Family
DX: I50.9 Heart failure, unspecified (principal); Z85.46 Personal history of malignant neoplasm of prostate